=== PATIENT | female | born 2000 | race Caucasian/White ===

== ENCOUNTER 2018-09-06 20:21 | Emergency (ER) | payer BC, SELFPAY ==
[2018-09-06 20:22] VITALS: BP 123/73; PULSE 88; RESP 16; TEMP 36.4; O2SAT 96; BMI 26.1
--- NOTE | 2018-09-06 21:00 | RAD_ITS ---
STUDY: X-RAY CHEST REASON FOR EXAM: Female, 17 years old. Chest pain. Headache. TECHNIQUE: Single AP portable view of the chest. COMPARISON: None. FINDINGS: The lungs are clear and expanded. There is no demonstrated pleural abnormality. Normal size heart. Normal mediastinum and patti. Normal visualized pulmonary arteries. Normal visualized aortic arch and descending thoracic aorta. Normal visualized thoracic spine. Normal visualized ribs, clavicles, and shoulders. There is no demonstrated abnormality of the visualized soft tissue structures of the upper abdomen. RAD/Chest 1 View (Portable) IMPRESSION: Normal x-ray examination of the chest. Electronically Signed: Marek Messer DO at 21:49 EST Tel [phone], Service support ,
--- NOTE | 2018-09-06 22:16 | EKG12_ITS ---
Test Reason : CP Blood Pressure : / mmHG Vent. Rate : 070 BPM Atrial Rate : 070 BPM P-R Int : 128 ms QRS Dur : 074 ms QT Int : 390 ms P-R-T Axes : 065 068 046 degrees QTc Int : 421 ms Normal sinus rhythm Normal ECG Confirmed by SHIKHA AWAN, CHANDRA ([id number]), editor magazine FARZANA FIGUEROA ([id number]) on 09/08/2018 9:49:56 AM Referred By: DR DOTY Confirmed By:CHANDRA TRIVEDI MD
[2018-09-06 22:31] VITALS: O2SAT 99
[2018-09-06] MEDS: Ketorolac 30 MG/ML Syringe IV (22:32)
[2018-09-06] MEDS: Ondansetron 4 MG/2 ML Vial IV (22:32)
[2018-09-06] MEDS: 0.9% Normal Saline 1,000 ML 1000 ML IV (22:32)
[2018-09-06 22:34] LABS: Absolute Lymphocyte Count 2.02 X10^3/ul (0.83-4.51); Absolute Neutrophil Count 6.6 X10^3/uL (2.0-7.7); Basophil# 0.01 X10^3/uL; Basophil% 0.1 % (0-1); Eosinophil# 0.05 X10^3/uL; Eosinophils% 0.5 % (0-5); Hematocrit 37.4 % (37-47); Hemoglobin 12.8 g/dl (12.0-15.0); Lymphocyte # 2.02 X10^3/ul (4.0); Lymphocyte % 21.5 % (19-41); Mean Corp Hgb Conc 34.2 g/gl (32-36); Mean Corpuscular Hgb 31.1 pg (27.0-32.0); Mean Platelet Vol. 9.7 fl (6.2-12.0); Monocyte# 0.69 X10^3/uL; Monocyte% 7.3 % (0-10); Neutrophil # 6.59 X10^3/uL (2.7-7.7); Neutrophil % 70.3 % (47-70); Platelet Count 278 K/mm3 (150-450); RBC Distribution Width CV 11.8 % (11.6-14.6); RBC Distribution Width SD 38.4 fl (35.1-43.9); Red Blood Count 4.11 M/mm3 (4.2-5.4); White Blood Count 9.4 K/mm3 (4.4-11.0)
[2018-09-06 22:36] LABS: POSITIVE COUNT NO; POSITIVE DIFFERENTIAL NO; POSITIVE MORPHOLOGY NO
[2018-09-06 22:40] LABS: Anion Gap 6 (5-15); BUN 19 mg/dL (7-18); BUN/Creat Ratio 22.9 RATIO (10-20); Chloride 106 mmol/L (98-107); Creatinine, Serum 0.83 mg/dL (0.55-1.02); EST Glomerular Filtration Rate 93 mL/min (>60); Est Glom Filt Rate - Afr Amer 113 mL/min (>60); Estimated Creatinine Clearance 90.18 ml/min; Glucose 91 mg/dL (74-106); Potassium 3.6 mmol/L (3.5-5.1); Sodium Level 138 mmol/L (136-145)
[2018-09-06 23:05] LABS: Pregnancy, Serum, hCG Quali. NEGATIVE Negative (0-9 Nonpreg)
[2018-09-06 23:10] LABS: D-Dimer Quantitative (DVT/PE) 0.32 FEU/ug/m (0.27-0.49)
--- NOTE | 2018-09-06 23:20 | ED.VISSUMM ---
- ER Visit Summary Date of Service: 09/06/18 Chief Complaint: Chest pain History of Present Illness: The patient is a [address] Castillo. She reports she has left-sided chest pain that began at 10:00 this morning while at rest. It is a continuous sharp pain. Stented at worst and 7-10 currently. Is worsened by breathing and relieved by nothing. She reports she is mildly short of breath. She denies any nausea, vomiting, or diaphoresis. She is never had anything like this before. No personal or family history of DVT. No recent travel. No ankle swelling or calf pain. She does have a Norplant. Physical Examination: Vitals: Stable. Afebrile. General: Well-nourished and well-developed. Head: Normocephalic atraumatic. Neck: Supple, no lymphadenopathy. No JVD. Nontender. Cardiovascular: Regular rate and rhythm. No murmurs. Respiratory: No respiratory distress. Clear to auscultation bilaterally. Mild tenderness palpation of the left side of her chest. This does not reproduce her pain. Abdominal: Soft, nontender, nondistended, normal bowel sounds. No guarding, rebound, or peritoneal signs. Back: Nontender. Extremities: Nontender, no edema. Skin: Normal color, no rash. Neurologic: Alert and oriented ?3. Cranial nerves II through XII are intact. Normal strength and sensation. Psych: Normal affect. Test Results: EKG is sinus at [address] changes. That there is no old EKG for comparison. D-dimer is negative. test is negative. Chem-7 is more for BUN 19. CBC is normal. Chest x-ray is normal. Emergency Department Course and Treatment: Patient treated Toradol IV. She is resting comfortably Treatment Plan: Patient be discharged on naproxen. Instructed to follow-up her primary care physician in 1 week if not improving. Return to the emergency department for any worsening symptoms. Disposition: To home in improved and stable condition. Impression: 1. Atypical chest pain. 2. BRUNO score of 0. This note was generated with Resonant Vibesation software. It may contain incorrect words, spelling, and punctuation that were not noted in review of the chart prior to signing ED Disposition - Plan for ED Patient: Disposition: Home or Assisted Living Chief Complaint: Chest Pain Instructions: ED Chest Pain Atypical Unkn Cause Prescriptions: Naproxen [Naprosyn] 500 mg PO BID #14 tablet Referrals: Janine Castillo PA-C [ALLIED HEALTH PROFESSIONAL] - 1 Week if not improving
[2018-09-06 23:33] VITALS: BP 109/74; PULSE 70; RESP 14; O2SAT 98
--- OUTSIDE RECORDS SUMMARY | 2018-10-23 22:57 | XMS RPT_ITS ---
:2000 Author Organization [facility] Care Team Providers Name Role Phone LEONOR ALDRICH Admitting Unavailable LEONOR ALDRICH Attending Unavailable LEONOR ALDRICH Primary Care Unavailable POMERENE, FAMILY CARE Consulting Unavailable POMERENE, FAMILY CARE Referring Unavailable PROVIDER, UNKNOWN Consulting Unavailable Austin Dominguez Attending Unavailable Primay Care Physicia, No Primary Care Unavailable PROBLEMS PROBLEMS No Problem Records FoundPROCEDURES PROCEDURES No Procedure Records FoundRESULTS RESULTS 12 LEAD ELECTROCARDIOGRAM Observed: 09/08/2018 Status: F Source: [place] 9:50 AM [facility] REPOSITORY [facility] Cardiovascular Services [address] [place] [address] 12 Lead EKG 09/06/182031 MR#: [id number] Acct: [id number] Name: MERCED ASHFORD Rep #: [id number] : 2000 17 From: Faisal Trivedi MD Attending Dr: Status: DEP ER Ordering Dr: Austin Dominguez MD Date: 09/06/18 Location: ED Sex: F C Admitted: Test Reason : CP Blood Pressure : / mmHG Vent. Rate : 070 BPM Atrial Rate : 070 BPM P-R Int : 128 ms QRS Dur : 074 ms QT Int : 390 ms P-R-T Axes : 065 068 046 degrees QTc Int : 421 ms Normal sinus rhythm Normal ECG Confirmed by FAISAL TRIVEDI MD ([id number]), video effects editor FARZANA FIGUEROA ([id number]) on 09/08/2018 9:49:56 AM Referred By: DR DOMINGUEZ Confirmed By:FAISAL TRIVEDI MD 09/08/18 0950 Date Faisal Trivedi MD CC: No Primary Care Physician; Austin Dominguez MD Signed EMERGENCY DEPARTMENT Observed: 09/07/2018 Status: F Source: [place] SUMMARY 1:04 AM [facility] REPOSITORY [facility] Medical Records Department [address] [place] [address] Emergency Department Summary 09/06/18 2320 MR#: [id number] Acct: [id number] Name: MERCED ASHFORD Rep #: [id number] : 2000 17 From: Austin Dominguez MD PCP: Care Physician, No Primary Status: DEP ER - ER Visit Summary Date of Service: 09/06/18 Chief Complaint: Chest pain History of Present Illness: The patient is a [address] Castillo. She reports she has left-sided chest pain that began at 10:00 this morning while at rest. It is a continuous sharp pain. Stented at worst and 7-10 currently. Is worsened by breathing and relieved by nothing. She reports she is mildly short of breath. She denies any nausea, vomiting, or diaphoresis. She is never had anything like this before. No personal or family history of DVT. No recent travel. No ankle swelling or calf pain. She does have a Norplant. Physical Examination: Vitals: Stable. Afebrile. General: Well-nourished and well-developed. Head: Normocephalic atraumatic. Neck: Supple, no lymphadenopathy. No JVD. Nontender. Cardiovascular: Regular rate and rhythm. No murmurs. Respiratory: No respiratory distress. Clear to auscultation bilaterally. Mild tenderness palpation of the left side of her chest. This does not reproduce her pain. Abdominal: Soft, nontender, nondistended, normal bowel sounds. No guarding, rebound, or peritoneal signs. Back: Nontender. Extremities: Nontender, no edema. Skin: Normal color, no rash. Neurologic: Alert and oriented 3. Cranial nerves II through XII are intact. Normal strength and sensation. Psych: Normal affect. Test Results: EKG is sinus at [address] changes. That there is no old EKG for comparison. D-dimer is negative. test is negative. Chem-7 is more for BUN 19. CBC is normal. Chest x-ray is normal. Emergency Department Course and Treatment: Patient treated Toradol IV. She is resting comfortably Treatment Plan: Patient be discharged on naproxen. Instructed to follow-up her primary care physician in 1 week if not improving. Return to the emergency department for any worsening symptoms. Disposition: To home in improved and stable condition. Impression: 1. Atypical chest pain. 2. BRUNO score of 0. This note was generated with SupportBee dictation software. It may contain incorrect words, spelling, and punctuation that were not noted in review of the chart prior to signing ED Disposition - Plan for ED Patient: Disposition: Home or Assisted Living Chief Complaint: Chest Pain Instructions: ED Chest Pain Atypical Unkn Cause Prescriptions: Naproxen [Naprosyn] 500 mg PO BID #14 tablet Referrals: Janine Castillo PA-C [ALLIED HEALTH PROFESSIONAL] - 1 Week if not improving What to do if you have Problems For any increased pain, shortness of breath, bleeding, nausea or vomiting, chest pain, or any unexpected problems, contact your Primary Care Provider. Call [facility] ([phone]) or report to the closest Emergency Room. Call 911 if necessary. 09/07/18 0104 <Electronically signed by Austin Dominguez MD> Date Austin Dominguez MD Cosigner Signature (If Indicated): Date CC: No Primary Care Physician D-DIMER QUANTITATIVE Collected: 09/06/2018 Status: F Source: [place] (DVT/PE) 10:50 PM [facility] REPOSITORY TYPE CODE TESTS RESULT OUT OF RANGE REFERENCE UNITS LAB L300.8000 0.27-0.49 FEU/ug/m Normal D-DIMER 0.32 QUANT Result Comment: NORMAL D-Dimer level (<0.50) indicates no DVT or PE. Performed By: #### L300.8000 #### [facility] [address] [place], [place], [address] CBC W/DIFF, AUTOMATED Collected: 09/06/2018 Status: F Source: [place] 10:24 PM [facility] REPOSITORY TYPE CODE TESTS RESULT OUT OF RANGE REFERENCE UNITS LAB L100.1000 4.4-11.0 K/mm3 Normal WBC 9.4 LAB L100.1200 4.2-5.4 M/mm3 Low RBC 4.11 LAB L100.1300 12.0-15.0 g/dl Normal HGB 12.8 LAB L100.1400 37-47 % Normal HCT 37.4 LAB L100.1500 81-99 fL Normal MCV 91.0 LAB L100.1600 27.0-32.0 pg Normal MCH 31.1 LAB L100.1700 32-36 g/gl Normal MCHC 34.2 LAB L100.1810 11.6-14.6 % Normal RDW CV 11.8 LAB L100.1820 35.1-43.9 fl Normal RDW SD 38.4 LAB L100.1900 150-450 K/mm3 Normal PLT 278 LAB L100.2000 6.2-12.0 fl Normal MPV 9.7 LAB L100.2100 47-70 % High NEUT% 70.3 LAB L100.2200 19-41 % Normal LY% 21.5 LAB L100.2300 0-10 % Normal MONO% 7.3 LAB L100.2400 0-5 % Normal EO% 0.5 LAB L100.2500 0-1 % Normal BASO% 0.1 LAB L100.2550 0.0-0.9 % Normal IM GRAN % 0.300 Result Comment: IG% - Immature Granulocytes (promyelocytes, myelocytes and metamyelocytes) > 1% indicates that a LEFT SHIFT is Present. LAB L100.2620 2.0-7.7 X10 3/uL Normal Absolute Neut 6.6 LAB L100.2720 0.83-4.51 X10 3/ul Normal Absolute Lymph 2.02 Performed By: #### L100.0100 #### [facility] [address] [place], [place], [address] BASIC METABOLIC Collected: 09/06/2018 Status: F Source: [place] PROFILE (BMP) 10:24 PM [facility] REPOSITORY TYPE CODE TESTS RESULT OUT OF RANGE REFERENCE UNITS LAB L501.0100 74-106 mg/dL Normal GLU 91 Result Comment: Please note revised GLUCOSE reference range effective 2017. LAB L501.1000 7-18 mg/dL High BUN 19 LAB L501.1100 0.55-1.02 mg/dL Normal CREAT,SERUM 0.83 Result Comment: The validity of the calculated GFR AND GFRAA in patients over 70 years has not been determined. Clinical correlation is essential. LAB L501.1110 >60 mL/min Normal EST GFR 93 Result Comment: Non- GFR Calc LAB L501.1115 >60 mL/min Normal EST GFR - AA 113 Result Comment: GFR Calc LAB L501.1255 ml/min Normal Estimated CRCL 90.18 LAB L501.1300 10-20 RATIO High BUN/CRE 22.9 LAB L501.2200 8.5-10 mg/dL Normal .1 CA 9.0 LAB L501.5300 136-14 mmol/L Normal 5 NA 138 LAB L501.5600 3.5-5. mmol/L Normal 1 K 3.6 Result Comment: Slight Hemolysis, Result may be falsely increased. LAB L501.5900 98-107 mmol/L Normal CL 106 LAB L501.6100 21.0-32.0 mmol/L Normal CO2 26.0 LAB L501.6200 5-15 Normal 6 GAP Performed By: #### L500.2500 #### [facility] [address] [facility] [place], [address] ,SERUM,HCG QUALI. Collected: Status: F Source: [place] 09/06/2018 10:24 PM [facility] REPOSITORY TYPE CODE TESTS RESULT OUT OF REFERENCE UNITS RANGE LAB L700.6700 =>Qualitative mIU/mL Normal HCG Qual < 1 triggr LAB L700.7000 0-9 Nonpreg Negative Normal HCGSQUAL NEGATIVE Performed By: #### L700.6800 #### [facility] [address] [place], [address] CHEST 1 VIEW Observed: 09/06/2018 Status: F Source: [place] (PORTABLE) 8:47 PM [facility] REPOSITORY [facility] Imaging Services [address] [place] [address] Chest 1 View (Portable) MR#: [id number] Acct: [id number] Name: MERCED ASHFORD Rep #: [id number] : 2000 F 17 From: Marek Messer DO PCP: Care Physician, No Primary Status: PRE ER Study: Chest 1 View (Portable) Date of Exam: 09/06/18 Exam# [id number] Ordering Dr: Provider,Ed P. STUDY: X-RAY CHEST REASON FOR EXAM: Female, 17 years old. Chest pain. Headache. TECHNIQUE: Single AP portable view of the chest. COMPARISON: None. FINDINGS: The lungs are clear and expanded. There is no demonstrated pleural abnormality. Normal size heart. Normal mediastinum and patti. Normal visualized pulmonary arteries. Normal visualized aortic arch and descending thoracic aorta. Normal visualized thoracic spine. Normal visualized ribs, clavicles, and shoulders. There is no demonstrated abnormality of the visualized soft tissue structures of the upper abdomen. RAD/Chest 1 View (Portable) IMPRESSION: Normal x-ray examination of the chest. Electronically Signed: Marek Messer DO at 21:49 EST Tel [phone], Service support , CC: No Primary Care Physician; ED PHYSICIAN PROVIDER Employee Health Nurse: Signed CMP WITH EGFR Collected: 03/29/2018 Status: F Source: [place] 2:00 AM [facility] REPOSITORY TYPE CODE TESTS RESULT OUT OF RANGE REFERENCE UNITS LAB CMP with eGFR(LOINC) CMP with eGFR Result Comment: COMPREHENSIVE METABOLIC PANEL LAB SODIUM(LOINC) 136 - 145 mmol/l SODIUM 140 LAB POTASSIUM(LOINC) 3.5 - 5.1 mmol/L POTASSIUM 3.5 LAB CHLORIDE(LOINC) 98 - 107 mmol/L CHLORIDE 104 LAB CO2(LOINC) 21.0 - mmol/L 31.0 CO2 25.5 LAB GLUCOSE(LOINC) 74 - 106 mg/dl GLUCOSE High 112 LAB BUN(LOINC) 6 - 20 mg/dl BUN 14 LAB CREATININE(LOINC) 0.6 - 1.2 mg/dl CREATININE 0.8 LAB AST/SGOT(LOINC) 13 - 39 U/L AST/SGOT 16 LAB ALK PHOS(LOINC) 38 - 126 U/L ALK PHOS 57 LAB CALCIUM(LOINC) 8.6 - mg/dl 10.2 CALCIUM 9.9 LAB TOTAL 6.4 - 8.3 g/dl PROTEIN(LOINC) TOTAL PROTEIN 7.6 LAB ALBUMIN(LOINC) 3.4 - 4.8 g/dL ALBUMIN High 5.0 LAB GLOBULIN(LOINC) 1.5 - 3.8 G/DL GLOBULIN 2.6 LAB A/G RATIO(LOINC) 0.9 - 1.6 A/G High RATIO 1.9 LAB TOTAL BILI(LOINC) 0.0 - 1.5 mg/dl TOTAL BILI 0.4 LAB B/C RATIO(LOINC) 0 - 30 ratio B/C RATIO 18 LAB ALT/SGPT(LOINC) 8 - 35 U/L ALT/SGPT 8 LAB ANION GAP(LOINC) 10 - 20 mmol/L ANION GAP 14 LAB AGE(LOINC) years AGE 17 LAB eGFR(LOINC) 60 - 999 ML/MINUTE eGFR >60 LAB eGFR(AA)(LOINC) 60 - 999 ML/MINUTE eGFR(AA) >60 Result Comment: ACCORDING TO THE NATIONAL KIDNEY DISEASE EDUCATION PROGRAM(NKDE), A NORMAL eGFR IS A VALUE GREATER THAN OR EQUAL TO 60 ML/MIN/1.73 SQ METERS. CHRONIC KIDNEY DISEASE: <60mL/MIN/1.73 SQ METERS KIDNEY FAILURE: <15mL/MIN/1.73 SQ METERS THIS TEST SHOULD ONLY BE USED FOR PATIENTS 18 YEARS OF AGE AND OLDER. Performed By: #### [id number] #### [address] [address] LIPASE Collected: 03/29/2018 Status: F Source: [facility] 2:00 [facility] REPOSITORY TYPE CODE TESTS RESULT OUT OF REFERENCE UNITS RANGE LAB LIPASE(LOIN 18.0 - 51.0 U/L C) Low LIPASE 12.0 Performed By: #### [id number] #### [facility],[address] [place] [address] CBC Collected: 03/29/2018 Status: F Source: [facility] 2:00 [facility] REPOSITORY TYPE CODE TESTS RESULT OUT OF RANGE REFERENCE UNITS LAB CBC(LOINC) CBC Result Comment: CBC-COMPLETE BLOOD COUNT LAB WBC(LOINC) 4.5 - 10.8 x 10EE3/UL WBC High 11.9 LAB RBC(LOINC) 4.10 - x 10EE6/UL 5.30 RBC 4.20 LAB HEMOGLOBIN(LOINC 12.0 - g/dl ) 16.0 HEMOGLOBIN 13.2 LAB HEMATOCRIT(LOINC 34.0 - % ) 46.0 HEMATOCRIT 37.6 LAB MCV(LOINC) 80 - 99 fl MCV 89 LAB MCH(LOINC) 27 - 33 pg MCH 31 LAB MCHC(LOINC) 32 - 36 X10 3 MCHC 35 LAB RDW/CV(LOINC) 12.0 - % 15.6 RDW/CV 12.2 LAB PLATELET(LOINC) 150 - 450 x10EE3/UL PLATELET 276 LAB MPV(LOINC) 6.6 - 10.5 fl MPV 8.1 Result Comment: AUTOMATED DIFFERENTIAL LAB NEUT %(LOINC) 46.0 - 76.0 % NEUT % High 77.4 LAB LYMPH %(LOINC) 20.0 - 45.0 % Low LYMPH % 15.9 LAB MONOS %(LOINC) 0.0 - 10.0 % MONOS % 6.1 LAB EO %(LOINC) 0.0 - 7.0 % EO % 0.5 LAB BASO %(LOINC) 0.0 - 2.0 % BASO % 0.1 LAB Lymph #(LOINC) 0.80 - 2.80 x10EE3/U L Lymph # 1.90 LAB Neut #(LOINC) 1.50 - 7.10 x10EE3/U L Neut # High 9.20 LAB [place] #(LOINC) 0.20 - 1.00 x10EE3/U L [place] # 0.70 LAB EO #(LOINC) 0.00 - 0.50 x10EE3/U L EO # 0.10 LAB Baso #(LOINC) 0.00 - 0.10 x10EE3/U L Baso # 0.00 LAB MANUAL DIFF(LOINC) MANUAL DIFF N/A LAB MORPHOLOGY(LOINC ) MORPHOLOGY N/A Result Comment: {CD] Performed By: #### [id number] #### [facility],[address] [place] [address] ALLERGIES ALLERGIES DATE TYPE / CODE NAME / CODE REACTION SEVERITY SOURCE 09/06/2018 Drug No Known Unknown [place] Allergy/104256115(S [facility]/F[facility] [place] [address] Repository Miscellaneous No Known Drug Moderate [facility] Allergy/999414278(S Allergies (Severity [facility] NOMED CT) Modifier) [facility] (Qualifier Repository Value) ENCOUNTERS ENCOUNTERS ADMIT/DISCHARGE ACCOUNT ADMITTING ENCOUNTER LOCATION SOURCE NUMBER CLASS 09/06/2018/ [id number] Emergency [address] ing:ED Repository 03/29/2018/ [id number] [facility], Emergency [address] [place] [address] oom: ERBed: [facility] [place] Repository PAYERS PAYERS ENCOUNTER GUARANTOR PAYER SUBSCRIBER SOURCE 09/06/2018 MERCED Nova [id number] S Insurance:ANTHEMPolicy SHOEMAKERDOB: [facility] Number: [id number] [id number] [address]Bfd: ve Date:[id number] [facility] [id number], [place] () [address]IM: 09/06/2018 Secondary NOT GIVENUNK [place] Insurance:SELF PAY [facility] Number: Effective Repository Date:2018-09-06 03/29/2018 MERCED Kapoor Pomerene KDKDOB: Insurance:ANTHEM DRAGAN [facility] HEALTH[facility]AREEMAKERDOB: [facility] S [employer] [id number] [facility] [place] Number: [place] [id number] Id [id number]: ve Date:Plan Name:B2 ()
== END 2018-09-06 23:37 | disposition home or self-care (01) ==
PROVIDERS: Emergency Provider Emergency Medicine
DX: R07.89 Other chest pain (principal); R06.09 Other forms of dyspnea; R51 Headache
CPT/HCPCS: 71045; 80048; 84703; 85025; 85379; 93005; 96361; 96374; 96375; 99285; J7030; A4216; J2405

== ENCOUNTER 2021-10-20 07:42 | Outpatient (CLI) | payer BC, SELFPAY | END 2021-10-20 23:59 | disposition short-term general hospital (02) | LOC: MS3OUT 07:45 | PROVIDERS: Referring Provider Nurse Practitioner Adult Health; Visit Provider Nurse Practitioner Adult Health | DX: U07.1 COVID-19 (principal) | CPT/HCPCS: Q0245 ==

== ENCOUNTER 2021-12-15 09:35 | Inpatient (IN) | payer BC, MEDICAID, SELFPAY ==
[2021-12-15] VITALS (71 sets, daily range): BP systolic 96–109; BP diastolic 51–83; PULSE 63–95; RESP 15–16; TEMP 36.1–37; O2SAT 98–100; BMI 29.1
[2021-12-15] MEDS: Lactated Ringers 1,000 ML 999 ML IV (10:10)
[2021-12-15 10:24] LABS: Absolute Lymphocyte Count 1.26 X10^3/uL (0.83-4.51); Absolute Neutrophil Count 7.4 X10^3/uL (2.0-7.7); Basophil# 0.01 X10^3/uL; Basophil% 0.1 % (0-1); Eosinophil# 0.08 X10^3/uL; Eosinophils% 0.9 % (0-5); Hematocrit 30.3 % (37-47); Hemoglobin 10.6 g/dL (12.0-15.0); Lymphocyte # 1.26 X10^3/ul (0.83-4.51); Lymphocyte % 13.7 % (19-41); Mean Corpuscular Hgb 30.5 pg (27.0-32.0); Mean Corpuscular Volume 87.3 fL (81-99); Mean Platelet Vol. 9.8 fl (6.2-12.0); Monocyte# 0.41 X10^3/uL; Monocyte% 4.5 % (0-10); NRBC Flagged by Analyzer 0 % (0-5); Neutrophil # 7.42 X10^3/uL (2.7-7.7); Neutrophil % 80.5 % (47-70); Platelet Count 281 K/mm3 (150-450); RBC Distribution Width CV 13.2 % (11.6-14.6); RBC Distribution Width SD 41.8 fl (35.1-43.9); Red Blood Count 3.47 M/mm3 (4.2-5.4); White Blood Count 9.2 K/mm3 (4.4-11.0)
[2021-12-15] MEDS: Acetaminophen 500 MG Tablet 1000 MG PO ×2 (10:46→16:30)
[2021-12-15] MEDS: Lactated Ringers 1,000 ML 150 ML IV (10:58)
[2021-12-15] MEDS: Sodium Citrate/Citric Acid 30 ML UDC PO (11:35)
--- NOTE | 2021-12-15 11:50 | PCM.HP.OB ---
HPI - General General Date of Admission: 12/15/21 HPI Narrative MERCED ASHFORD, is a 21 F who presents for repeat . Maternal Data Information Final ETHAN: 12/15/21 Gestational age: 40 weeks [facility] Medical History Anxiety Depression History of prior with IUGR Home Medications vit,[id number] [Prenatabs FA] 1 tab PO DAILY 12/15/21 [History Last Taken 12/13/21 10:00] sertraline [Zoloft] 50 mg PO DAILY 12/15/21 [History Last Taken 12/12/21 20:00] Allergy/AdvReac Type Severity Reaction Status Date / Time No Known Allergies Allergy Verified 10/19/21 13:22 Surgical History Previous section Social History Smoking Status: Never smoker History Elective abortions Hx Para 1 Spontaneous abortions Hx # Term Pregnancies Ectopic pregnancies Hx # Pregnancies Multiple births # of living children Vital Signs Vital Signs Vital Signs: 12/15/21 10:10 12/15/21 10:12 12/15/21 10:25 Temperature 98.2 F 98.6 F Temperature Source Temporal Pulse Rate 84 85 84 Blood Pressure 109/73 109/73 BP Systolic 109 109 BP Diastolic 73 73 Pulse Ox 98 98 Weight Weight: 164 lb 7.437 oz Body Mass Index (BMI) 29.1 Physical Exam Const alert, oriented x3 and no apparent distress Chest inspection of chest normal Resp normal respiratory effort GI soft to palpation, non-tender and non-distended Inspection: gravid Extremity no calf tenderness Labs Labs Labs: Blood Type O POSITIVE Antibody Screen NEGATIVE Hct 30.3 % (37-47) L Hgb 10.6 g/dL (12.0-15.0) L Assessment & Plan (1) Previous delivery affecting : COMMENT: @ 40 weeks PLAN: Admit to L&D Proceed with repeat - informed consent signed COVID negative Routine post-op care
[2021-12-15] MEDS: Cefazolin 2 GM in 0.9% Normal Saline 100 ML IV (11:52)
--- NOTE | 2021-12-15 13:02 | EX.PCM.OBRPT ---
Maternal Data Information Final ETHAN: 12/15/21 Gestational age: 40 weeks Details Operative Information Date of Procedure: 12/15/21 Pre-Operative Diagnosis: (1) Prior section Post-Operative Diagnosis: Same Indications for : Repeat Elective Indications Narrative: The patient was taken to the operating room where spinal anesthesia was placed & found to be adequate. She was prepped and draped in the dorsal supine position with a leftward tilt. A Pfannenstiel skin incision was made approximately 2 cm above the symphysis pubis and carried through to the underlying fascia with the scalpel. The fascia was incised incised in the midline and extended laterally with the Rollins scissors. The rectus muscles were in the midline and the peritoneum was entered carefully and bluntly. The peritoneal incision was stretched and the bladder blade was inserted. Vesicouterine peritoneum was tented up, incised & then bladder flap created gently. The uterine incision was made in a low transverse fashion with the scalpel and extended superiorly and inferiorly with blunt dissection. The infant's head was brought to the incision in the flexed position and delivered without difficulty. The head was gently guided to allow delivery of the anterior and posterior shoulders. The body then delivered with fundal pressure in the standard fashion. The 3VC cord was clamped and cut in delayed fashion. The infant was handed off to the waiting pediatrics physician. The placenta was delivered with fundal massage and gentle traction in the standard fashion. The uterus was exteriorized and cleared of clots and debris. The uterine incision was closed with #1 Vicryl suture in a running locked fashion. Monocryl suture was used in an imbricating fashion. The incision was examined and was found to be hemostatic. The uterus was returned to the abdominal cavity. After irrigating Jon was placed over the uterine incision as some areas were denuded (but hemostatic). The peritoneum was closed with vicryl suture in running fashion The rectus muscle was examined and any bleeding was Bovie cauterized. The fascia was closed with PDS suture in a running standard fashion. The subcutaneous tissue was examining and any bleeding was Bovie cauterized. The subcutaneous tissue was reapproximated with interrupted sutures. The skin was closed in a subcuticular fashion by the OUTSIDE SALES ACCOUNT MANAGER while I was present in the labor & delivery unit. The remainder of the procedure was performed by me with assistance. All sponge, lap, and needle counts were correct. The patient was taken to her room for recovery in a stable condition. Classification: Scheduled Procedure Type: low transverse musical string maker #1: Jesus Castillo Type of Anesthesia: Spinal Antibiotic Given: Ancef 2 grams IV x1 Drain: Higgins to straight drain Estimated Blood Loss: 900ml Fluids Replaced: 1100ml Procedure Start Time: 12:16 Procedure Stop Time: 13:01 Findings Description of Procedure: Normal maternal uterus and adnexa Presentation: Positive for Vertex Amniotic Membrane Rupture Type: Artificial Amniotic Fluid Description: Clear Placental Delivery Description: Expressed Placenta Disposition: [facility] Specimen(s) Sent to Pathology: None Cord Vessel Description: 3 Vessels Cord Entanglement: None A Gender: Female (Jerri) (1 minute): 9 (5 minute): 9 Delayed Cord Clamping: Yes Complications Complications: None
[2021-12-15] MEDS: Ketorolac 30 MG/ML Syringe IV ×2 (13:28→19:42)
[2021-12-15] MEDS: Oxytocin 30 units/NS 500 ml 30 UNITS/500 ML IV.SOLN 167 UNITS IV (13:28)
[2021-12-15] MEDS: DiphenhydrAMINE 25 MG Capsule PO (15:18)
[2021-12-15] MEDS: Lactated Ringers 1,000 ML 100 ML IV (16:23)
[2021-12-15] MEDS: Nalbuphine 10 MG/ML Ampul 5 MG IV (16:30)
[2021-12-15] MEDS: Ondansetron 4 MG/2 ML Vial IV (18:57)
[2021-12-16] VITALS (11 sets, daily range): BP systolic 103–108; BP diastolic 56–67; PULSE 75–91; RESP 16; TEMP 35.8–36.7; O2SAT 97–98
[2021-12-16] MEDS: Acetaminophen 500 MG Tablet 1000 MG PO ×3 (00:02→12:52)
[2021-12-16] MEDS: Enoxaparin 40 MG/0.4 ML Syringe SC (00:02)
[2021-12-16] MEDS: Ketorolac 30 MG/ML Syringe IV ×2 (02:15→09:07)
[2021-12-16] MEDS: 0.9% Saline Lock 10 ML Syringe IV ×2 (02:17→09:08)
[2021-12-16 05:57] LABS: Hematocrit 27.3 % (37-47); Hemoglobin 9.2 g/dL (12.0-15.0); Mean Corp Hgb Conc 33.7 g/dL (32-36); Mean Corpuscular Hgb 31.2 pg (27.0-32.0); Mean Corpuscular Volume 92.5 fL (81-99); Mean Platelet Vol. 9.4 fl (6.2-12.0); Platelet Count 225 K/mm3 (150-450); RBC Distribution Width CV 13.2 % (11.6-14.6); RBC Distribution Width SD 44.6 fl (35.1-43.9); Red Blood Count 2.95 M/mm3 (4.2-5.4); White Blood Count 8.8 K/mm3 (4.4-11.0)
--- NOTE | 2021-12-16 08:36 | PCM.PROGNOTE ---
Subjective Subjective patient seen at bedside, doing well. Patient reports good pain control. lochia mild. breast feeding well. Objective Data Objective Data Vital Signs: Vital Signs Temp Pulse Resp BP Pulse Ox 97.2 F L 75 16 104/56 L 97 12/16/21 03:36 12/16/21 03:37 12/16/21 03:30 12/16/21 03:37 12/16/21 03:36 Oxygen Delivery Method Room Air Weight: 74.6 kg Body Mass Index (BMI) 29.1 Intake & Output: Intake and Output for Last 24 Hours 12/14/21 12/15/21 12/16/21 23:59 23:59 23:59 Intake Total 3562.37 / 3562.37 Output Total 1200 / 1200 750 / 750 Balance 2362.37 / 2362.37 -750 / -750 Lab / Micro Data Result Diagrams: 12/16/21 05:48 Labs: Laboratory Results - last 24 hr 12/15/21 10:05: WBC 9.2, RBC 3.47 L, Hgb 10.6 L, Hct 30.3 L, MCV 87.3, MCH 30.5, MCHC 35.0, RDW Std Deviation 41.8, RDW Coeff of Connie 13.2, Plt Count 281, MPV 9.8, Immature Gran % (Auto) 0.300, Neut % (Auto) 80.5 H, Lymph % (Auto) 13.7 L, [place] % (Auto) 4.5, Eos % (Auto) 0.9, Baso % (Auto) 0.1, Absolute Neuts (auto) 7.4, Absolute Lymphs (auto) 1.26, Nucleated RBC % 0 12/15/21 10:05: Blood Type O POSITIVE, Antibody Screen NEGATIVE 12/16/21 05:48: WBC 8.8, RBC 2.95 L, Hgb 9.2 L, Hct 27.3 L, MCV 92.5 D, MCH 31.2, MCHC 33.7, RDW Std Deviation 44.6 H, RDW Coeff of Connie 13.2, Plt Count 225, MPV 9.4 Micro: Microbiology 12/15/21 10:10 Nasal Secretion SARS-CoV-2 Antigen (Rapid) - Final Physical Exam Const alert and oriented x3 General Appearance: cooperative HEENT normocephalic Neck General: normal visual inspection GI soft to palpation and non-distended GI Narrative: dressing dry and intact. Fundus firm Extremity normal to inspection and no calf tenderness Skin no rashes or lesions noted Neuro oriented x3 and CN's II-XII intact bilaterally Psych mental status grossly normal Assessment & Plan Assessment/Plan (1) Previous delivery affecting : PLAN: POD#1 , Doing well Routine care pain mgmt monitor VS ambulation dc home per pateint request
--- NOTE | 2021-12-16 08:37 | PCM.DC ---
Discharge Instructions Diet Discharge Diet: No restrictions Activity May resume sexual activity in: 6-8 weeks Lifting Restrictions: 25 Dressing / Incision Call your doctor if your incision/area has: Continuous Slow Oozing, Sudden Increased Bleeding, Increased Pain/ Swelling, Increased Redness, Foul Smelling Discharge and Swelling at the incision site Call your doctor if you observe: Fever of 101 or Higher, Inability to urinate, Using more than 1 pad per hour and Uncontrolled pain Additional Dressing/Incision Instructions:: remove dressing at 7 days post op- if it becomes saturated prior to that time you may remove it. Let soap and water run over incision sites and dab dry. keep incision clean and dry. Follow Up Care Please Follow Up With: Cherie Scott MD When: 1-2 weeks post of incision check and again at 6 weeks post . [phone] Test Results: Test results from this visit will be discussed in further detail at your follow-up appointment, if applicable. Discharge Plan Admission Admit Date/Time: 12/15/21 09:35 Attending Provider: Aiden Acevedo Primary Care Provider: Care PhysicianJanis Primary Discharge Orders/Prescriptions Prescriptions: New acetaminophen 500 mg Tablet 1,000 mg PO Q6H Qty: 0 RF: 0 ibuprofen 600 mg Tablet 600 mg PO Q6H Qty: 0 RF: 0 oxycodone 5 mg Tablet 5 - 10 mg PO Q6H PRN PRN (Reason: Pain Score 4-10) 5 Days Qty: 10 RF: 0 simethicone [Mi-Acid Gas Relief(simethicon)] 80 mg Tablet,Chewable 80 mg PO PCHS PRN (Reason: Indigestion/stomach pain) Qty: 0 RF: 0 Continued sertraline [Zoloft] 50 mg Tablet 50 mg PO DAILY RF: 0 Prenatabs FA 29-1 mg Tablet 1 tab PO DAILY RF: 0 Referrals / Follow Up: Care PhysicianJanis Primary [Primary Care Provider] - Disposition Disposition (needs filled in before D/C Order can be placed): Home, Self Care
[2021-12-16] MEDS: Senna/Docusate Sodium 1 Tablet PO (09:07)
[2021-12-16] MEDS: Ibuprofen 600 MG Tablet PO (12:52)
--- NOTE | 2021-12-16 14:10 | CASEMGMT ---
Social Work Assessment Labor and Delivery Unit Date of Referral: 12.16.2021 Time of Referral: 08 Referred By: Verbal notification by nursing Date of Intervention: 12.16.2021 Time of Intervention: 1410 Reason for Referral: Maternal history of depression and anxiety. History obtained from: Medical records, mother of baby (MOB) Mary Echevarria, and father of baby (FOB) Ezekiel Roa. Household composition: MOB, FOB, and MOB's older daughter. Patient's parent/guardian status: ALEJANDRINA is a 23 year old single female, involved with the FOB for the last 1 year. MOB denies any safety concerns or history of abuse in this relationship. baby is the first child for MOB and FOB together. MOB has an older child from prior relationship. Minor children: Gio, born 01.25.2020 and baby girl Jerri Roa. Gio's father does have visitation. Medical History: ALEJANDRINA is G2, P1 to 2 after delivering baby. care adequate. weight 7 pounds 2 ounces. Agpars 9 and 9. Educational Status: High school. No issues with reading, writing or learning. 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 FOB is also employed. No reported concerns with finances. Supplies: MOB reports to have all necessary baby supplies including, car seat. safe sleep spaced. Childcare/Caregiver(s): MOB and FOB, with MOB having a hat blocking machine operator secured for the children. Transportation: No concerns. Both parents drive. Programs/Agencies Involved: ALEJANDRINA has medicaid through [employer]. MOB and FOB agree to [facility] referral. Children Services/Legal Issues: Denies current or past involvement. Behavioral Health Issues: Mental Health History: Maternal history of depression and anxiety diagnosed at the age of 12. History of counseling. History of PPD, but MOB reports was minimal and more like the baby blues. ALEJANDRINA does have history of suicidal ideation 3 years ago with subsequent inpatient treatment. No reports of current thoughts. MOB started on Zoloft in and reports may talk with doctor about a different medication now that not . Family History: ALEJANDRINA's sister with history of depression. Substance Use History: Denies. Drug Screens: No screens noted in the record. Family/Social Stressors: None reported at this time. unexpected but accepted. MOB and FOB both reports was a happy surprise. Support Systems: MOB reports to have good support from FOB, and from MOB's parents who live close by. MOB reports to have a large family and all are helpful. FOB's family is helpful, but live an hour away. FOB plans to take a week off of work to help MOB at home with baby. Depression/Shaken Baby/Safe Sleeping: Safe sleeping and shaken baby reviewed. Reviewed depression and anxiety, importance of seeking out help and support, as well as that fathers are also at risk. ASSESSMENT: Met with MOB and FOB together. Spoke briefly with MOB alone and MOB denied any safety or abuse concerns with the FOB. MOB and FOB both engaged in conversation with high school social science teacher, pleasant and cooperative. MOB attended to baby, was appropriate and gentle. MOB reports to have all needed supplies to care for baby, and to have adequate support from family. MOB reports FOB is a support, as has anxiety and on medications. MOB reports would seek out addition support if PPD or PPA arises . MOB prescribed Zoloft but plans to talk with PCP about alternative medications. No voiced concerns by nursing about parent/child interactions or bonding. Provided MOB with list of [facility] resources and also mood and anxiety disorders packet, which does including local and online resources. [facility] referral to be made. PLAN: MOB and infant home. Resources provided for home going. No other services requested or indicated. -EDY Trivedi, MARY ANNE
== END 2021-12-16 14:15 | disposition home or self-care (01) | DRG 788 ==
PROVIDERS: Obstetrics & Gynecology; Admitting Provider Obstetrics & Gynecology; Visit Provider Obstetrics & Gynecology
PROC: 10D00Z1 Extraction of Products of Conception, Low, Open Approach (ICD-10-PCS; CPT 59514; principal; 2021-12-15 11:45)
DX: O34.219 Maternal care for unspecified type scar from previous cesarean delivery (principal); F32.A Depression, unspecified; F41.9 Anxiety disorder, unspecified; O99.344 Other mental disorders complicating childbirth; Z20.822 Contact with and (suspected) exposure to COVID-19; Z79.899 Other long term (current) drug therapy; Z37.0 Single live birth; Z3A.40 40 weeks gestation of pregnancy
CPT/HCPCS: 59050; 85025; 85027; 86850; 86900; 86901; 87426; 99218; J7120; A4216; G0378; J2405

== ENCOUNTER 2024-09-30 08:17 | Emergency (ER) | payer OTHER, SELFPAY ==
[2024-09-30] VITALS (8 sets, daily range): BP systolic 93–121; BP diastolic 64–89; PULSE 69–99; RESP 14–18; TEMP 36.7–37.1; O2SAT 97–100; BMI 22.1
--- NOTE | 2024-09-30 08:41 | EKG12_ITS ---
Test Reason : CP Blood Pressure : */* mmHG Vent. Rate : 81 BPM Atrial Rate : 81 BPM P-R Int : 144 ms QRS Dur : 68 ms QT Int : 378 ms P-R-T Axes : 76 75 61 degrees QTcB Int : 439 ms Normal sinus rhythm with sinus arrhythmia Normal ECG Confirmed by Abdoul Bautista ([id number]), photography editor ARCADIO MANZANO ([id number]) on 10/01/2024 9:54:06 AM Referred By: CG Confirmed By: Abdoul Bautista
--- NOTE | 2024-09-30 08:43 | EX.ED.DYSGE1 ---
HPI History of Present Illness Chief Complaint: Shortness of Breath Informant: patient Narrative Narrative: Patient is a 24-year-old female with history of prior cholecystectomy, anxiety and depression presenting with chest pain. Patient states she has been sick for the past 2 days or so. Started with vomiting and diarrhea 2 days ago and yesterday she had decreased appetite, congestion and cough. No reported fevers but states she intermittently still hot and cold. This morning after she woke up she noticed as some burning chest pain. She states it is in the center of her chest and radiates down to her epigastric region. She has associated shortness of breath and did have a couple episodes of vomiting. She denies any coughing today. She did take 600 mg of Advil for her symptoms. She denies any associated abdominal pain except for discomfort in her epigastric region. She denies any urinary symptoms. She denies any swelling of her legs or history of DVT/PE. She is not on any estrogen or hormonal medication. Denies any sick contacts initially but then states that her daughters had some mild cold symptoms. No other complaints or concerns reported at this time. Denies any history of any heart problems that she is aware of. [facility] Medical History History of prior with IUGR Anxiety Depression Home Medications ?Medication ?Instructions ?Recorded ?Last Taken ?Type alprazolam 0.25 mg tablet 0.25 mg PO TID PRN anxiety 07/25/24 Unknown History omeprazole 20 mg capsule,delayed 20 mg PO DAILY #30 CAPSULES 09/30/24 Unknown Rx release ondansetron 4 mg disintegrating 4 mg PO Q8H PRN PRN Nausea #10 tabs 09/30/24 Unknown Rx tablet Allergy/AdvReac Type Severity Reaction Status Date / Time No Known Allergies Allergy Verified 08/16/24 13:12 Surgical History S/P laparoscopic cholecystectomy Previous section Social History Smoking Status: Current every day smoker tobacco type: cigarettes alcohol intake: never ROS ROS ED Constitutional Constitutional ED: Reports chills; Denies fever(s) Eyes Eyes: Denies change in vision ENT ENT ED: Reports other Details: Mild nasal congestion ; Denies ear pain or sore throat Cardiovascular Cardiovascular: Reports chest pain Respiratory/Chest Respiratory/Chest: Reports dyspnea; Denies cough Gastrointestinal Gastrointestinal: Reports abdominal pain, nausea and vomiting; Denies constipation or diarrhea Genitourinary Genitourinary ED: Denies dysuria or urinary frequency Musculoskeletal Musculoskeletal: Denies arthralgias or myalgias Integumentary Denies other Neurologic Neurologic: Reports headache(s) and weakness Psychiatric Psychiatric: Reports anxiety EXAM Physical Exam Const Vital Signs: 09/30/24 08:18 09/30/24 08:31 09/30/24 08:31 Temperature 98.7 F 98.1 F Temperature Source Oral Oral Pulse Rate 99 72 Respiratory Rate 18 15 Respiratory Effort Short of Breath Respiratory Depth Normal Respiratory Pattern Normal Blood Pressure 121/86 H 119/89 H Blood Pressure Mean 97 99 Pulse Ox 99 100 Oxygen Delivery Method Room Air Room Air Room Air 09/30/24 09:17 09/30/24 10:00 09/30/24 11:00 Temperature Temperature Source Pulse Rate 72 87 75 Respiratory Rate 16 18 14 Respiratory Effort Respiratory Depth Respiratory Pattern Blood Pressure 113/84 H 110/85 H 102/65 Blood Pressure Mean 93 93 77 Pulse Ox 99 97 97 Oxygen Delivery Method Room Air Room Air 09/30/24 12:00 09/30/24 13:00 09/30/24 14:07 Temperature Temperature Source Pulse Rate 81 82 69 Respiratory Rate 18 17 16 Respiratory Effort Respiratory Depth Respiratory Pattern Blood Pressure 93/64 95/64 97/70 Blood Pressure Mean 73 74 79 Pulse Ox 97 98 99 Oxygen Delivery Method Room Air Room Air Positive well nourished and well developed General Appearance ED: well developed and NAD HEENT Reports TM's clear and moist mucous membranes HEENT Narrative: Normal oropharynx. Normal nasal mucosa Tympanic Membrane ED: Yes TM's clear Eyes PERRL Neck no lymphadenopathy, supple and no JVD Chest Wall inspection of chest normal Chest Narrative: Mild tenderness palpation of the anterior chest/sternum. No chest wall crepitus. Resp normal respiratory effort and clear to auscultation bilaterally Cardio regular rate, regular rhythm and no murmurs GI non-distended Auscultation: normoactive bowel sounds Palpation: soft and tender epigastric; Negative for guarding Extremity normal to inspection Neuro oriented x3 Motor Exam: Negative for general weakness Psych mental status grossly normal Mood & Affect: anxious Skin no rashes or lesions noted and no wounds MDM MDM MDM Narrative Medical decision making narrative: Patient is evaluated for burning chest pain that started this morning. She had nausea vomiting and diarrhea yesterday. Cells like there is been a viral illness at the house as her daughter is also been sick with URI symptoms. Patient is nontoxic-appearing. Her vital signs are normal. She is PE RC negative. Suspicion for PE. Differential also includes ACS, pneumothorax, myocarditis, pericarditis, gastritis, gastroenteritis, CLIVE, pneumonia and electrolyte abnormality. Patient given Zofran in the ED. Work up shows normal EKG, normal delta high-sensitivity troponin. Urinalysis normal. Urine negative. CBC does show leukocytosis of 16.1 but no shift. Suspect this is reactive or associate with her recent vomiting. BMP is normal with a normal BUN and creatinine as well as no significant electrolyte abnormalities. Patient reevaluated and still some mild epigastric tenderness. Is given a GI cocktail with resolution of her symptoms. We discharged home with a referral for GI, Zofran prescription as well as PPI therapy. Given return precautions. At this time given her benign abdominal exam and stable vital signs I do not think requires advanced imaging. Chest x-ray reviewed by myself as well as radiology does not show any acute process. Lab Data Attestation: I reviewed the patient's lab results. Labs: Laboratory Results - last 24 hr 09/30/24 09/30/24 09/30/24 08:29 09:15 11:00 WBC 16.1 H RBC 4.42 Hgb 13.7 Hct 39.9 MCV 90.3 MCH 31.0 MCHC 34.3 RDW Std Deviation 39.7 RDW Coeff of Connie 12.0 Plt Count 440 MPV 9.6 Immature Gran % (Auto) 0.300 Neut % (Auto) 72.2 H Lymph % (Auto) 19.7 [place] % (Auto) 6.7 Eos % (Auto) 0.9 Baso % (Auto) 0.2 Absolute Neuts (auto) 11.6 H Absolute Lymphs (auto) 3.16 Nucleated RBC % 0 Sodium 138 Potassium 3.7 Chloride 108 H Carbon Dioxide 23.0 Anion Gap 8 BUN 11 Creatinine 0.87 Estim Creat Clear Calc 81.06 Est GFR (MDRD) Af Amer 101 Est GFR (MDRD) Non-Af 83 BUN/Creatinine Ratio 12.6 Glucose 117 H Calcium 9.3 Total Bilirubin 0.50 Direct Bilirubin 0.14 AST 27 ALT 16 Alkaline Phosphatase 76 Troponin I High Sens 6 4 Total Protein 8.2 Albumin 4.4 Globulin 3.8 Lipase 43 Urine Color Yellow Urine Clarity Sl. Cloudy Urine pH 5.0 Ur Specific [place] 1.025 Urine Protein 30 H Urine Glucose (UA) Normal Urine Ketones Negative Urine Occult Blood 50 H Urine Nitrite Negative Urine Bilirubin Negative Urine Urobilinogen 1 H Ur Leukocyte Esterase 25 H Urine RBC 0 SEEN Urine WBC 0 SEEN Ur Squamous Epith Cells 0-5 SEEN Urine Bacteria 0 SEEN Hyaline Casts 0-5 SEEN RBC Casts 0-5 SEEN Urine Mucus 1+ Urine Test Negative Radiography Diagnostic Testing: Clinical Impression(s) from Imaging Studies Chest X-Ray 09/30/24 09:25 IMPRESSION: Normal x-ray examination of the chest. Electronically Signed: Damian Cantor MD at 9:50 EST Reading Location ID and State: [address] [place] [address] , Service support , Rhythm Strip Rhythm Strip: Sinus Rhythm Rate: 81 Ectopy: None EKG Initial EKG: Attestation: I personally reviewed and interpreted this EKG as follows: Interpretation: Sinus Rhythm Comments: Normal sinus rhythm at a rate of 81 bpm with sinus arrhythmia Normal axis Normal intervals Normal ST segments Discharge Plan Triage Chief Complaint: Shortness of Breath ED Provider: Tonia Hernandez Dx/Rx/DC Orders Clinical Impression: Chest pain, non-cardiac, Gastritis Instructions: ED Chest Pain, Noncardiac, ED Gastritis (Adult) Prescriptions: New ondansetron 4 mg tablet,disintegrating 4 mg PO Q8H PRN PRN (Reason: Nausea) Qty: 10 0RF omeprazole 20 mg capsule,delayed release(DR/EC) 20 mg PO DAILY Qty: 30 0RF No Action alprazolam 0.25 mg tablet 0.25 mg PO TID PRN (Reason: anxiety) Primary Care Provider: Janine Castillo Referrals: Sen Slater DO [Med Staff - Active Staff] - 3-5 Days Janine Castillo PASamanthaC [Primary Care Provider] - Activity Restrictions/Additional Instructions: Your cardiac workup was normal. No findings consistent with acute heart abnormalities. I suspect your symptoms are more from irritation of your GI tract. You have been given a prescription for Zofran medicine as well as antacid medicine. Please take the antacid medicine (omeprazole) daily. Please follow-up with GI as we discussed. If your symptoms progress, worsen of your further concerns please do not hesitate to return to the emergency room. Print Language: Frisian Disposition Disposition: Home, Self Care
[2024-09-30] MEDS: Ondansetron 4 MG/2 ML Vial IV (09:12)
[2024-09-30 09:17] LABS: AST(SGOT) 27 U/L (15-37); Alanine Aminotransfer ALT/SGPT 16 U/L (13-56); Albumin, Serum 4.4 g/dL (3.2-5.0); Alkaline Phosphatase 76 U/L (45-117); Anion Gap 8 (5-15); BUN 11 mg/dL (7-18); BUN/Creat Ratio 12.6 RATIO (10-20); Bilirubin, Direct 0.14 mg/dL (0.00-0.30); Calcium,Total 9.3 mg/dL (8.5-10.1); Chloride 108 mmol/L (98-107); Creatinine, Serum 0.87 mg/dL (0.55-1.02); EST Glomerular Filtration Rate 83 mL/min (>60); Est Glom Filt Rate - Afr Amer 101 mL/min (>60); Estimated Creatinine Clearance 81.06 ml/min; Globulin 3.8 g/dL (2.2-4.2); Glucose 117 mg/dL (74-106); Lipase 43 U/L (13-75); Potassium 3.7 mmol/L (3.5-5.1); Protein, Total 8.2 g/dL (6.4-8.2); Sodium Level 138 mmol/L (136-145); Troponin-I HS (w/2H Reflex) 6 pg/mL (3.0-54.0)
[2024-09-30 09:20] LABS: Bacteria 0 SEEN /hpf (None Seen); Red Blood Cells-Urine 0 SEEN /hpf (0-5); White Blood Cells 0 SEEN /hpf (0-5)
[2024-09-30 09:23] LABS: Color, Urine Yellow (Yellow); Glucose, Dipstick Normal (Normal); Ketone-Dipstick Negative (Negative); Leukocyte Esterase-Dipstick 25 /ul (Negative); Nitrite-Dipstick Negative (Negative); Occult Blood-Urine 50 /ul (Negative); Protein-Dipstick 30 mg/dl (Negative); Specific Gravity, Urine 1.025 (1.002-1.030); Urine Bilirubin Dipstick Negative (Negative); Urine Clarity Sl. Cloudy (Clear); Urine Urobilinogen 1 mg/dl (Normal)
--- NOTE | 2024-09-30 09:25 | RAD_ITS ---
STUDY: X-RAY CHEST REASON FOR EXAM: Female, 24 years old. Atypical chest pain TECHNIQUE: PA and lateral views of the chest. COMPARISON: 2017 FINDINGS: EKG leads overlie the chest The lungs are clear and expanded. There is no demonstrated pleural abnormality. Normal size heart. Normal mediastinum and patti. Normal visualized pulmonary arteries. Normal visualized aortic arch and descending thoracic aorta. Normal visualized thoracic spine. Normal visualized ribs, clavicles, and shoulders. There is no demonstrated abnormality of the visualized soft tissue structures of the upper abdomen. RAD/Chest PA and Lateral IMPRESSION: Normal x-ray examination of the chest. Electronically Signed: Damian Cantor MD at 9:50 EST ,
[2024-09-30 09:29] LABS: Hyaline Cast 0-5 SEEN /lpf (0-5); Squamous Epithelial Cells - UA 0-5 SEEN /hpf (5-10)
[2024-09-30 09:30] LABS: Mucous, Urine 1+ /hpf (<or=2+); Red Cell Cast 0-5 SEEN /lpf (None Seen)
[2024-09-30 09:31] LABS: Internal QC Validated? YES +Cl - CLEAR BKGD; Pregnancy, Urine Negative Negative
[2024-09-30 10:52] LABS: Reflex Troponin-HS? (from REC) Y
[2024-09-30 11:25] LABS: Troponin-I HS 4 pg/mL (3.0-54.0)
[2024-09-30 12:01] LABS: Absolute Lymphocyte Count 3.16 X10^3/uL (0.83-4.51); Absolute Neutrophil Count 11.6 X10^3/uL (2.0-7.7); Basophil# 0.04 X10^3/uL; Basophil% 0.2 % (0-1); Eosinophil# 0.15 X10^3/uL; Eosinophils% 0.9 % (0-5); Hematocrit 39.9 % (37-47); Hemoglobin 13.7 g/dL (12.0-15.0); Lymphocyte # 3.16 X10^3/ul (0.83-4.51); Lymphocyte % 19.7 % (19-41); Mean Corp Hgb Conc 34.3 g/dL (32-36); Mean Corpuscular Volume 90.3 fL (81-99); Mean Platelet Vol. 9.6 fl (6.2-12.0); Monocyte# 1.07 X10^3/uL; Monocyte% 6.7 % (0-10); NRBC Flagged by Analyzer 0 % (0-5); Neutrophil # 11.59 X10^3/uL (2.7-7.7); Neutrophil % 72.2 % (47-70); Platelet Count 440 K/mm3 (150-450); RBC Distribution Width SD 39.7 fl (35.1-43.9); Red Blood Count 4.42 M/mm3 (4.2-5.4); White Blood Count 16.1 K/mm3 (4.4-11.0)
[2024-09-30] MEDS: Lidocaine 2% Viscous15 ML UDC 15 ML PO (13:20)
[2024-09-30] MEDS: Mag Hydrox/Al Hydrox/Simeth 30 ML UDC PO (13:21)
== END 2024-09-30 14:31 | disposition home or self-care (01) ==
PROVIDERS: Emergency Provider Emergency Medicine; PCP Family Medicine; Visit Provider Emergency Medicine
DX: R07.89 Other chest pain (principal); K29.70 Gastritis, unspecified, without bleeding; R10.816 Epigastric abdominal tenderness; R06.00 Dyspnea, unspecified; F32.A Depression, unspecified; F41.9 Anxiety disorder, unspecified; F17.210 Nicotine dependence, cigarettes, uncomplicated; Z90.49 Acquired absence of other specified parts of digestive tract
CPT/HCPCS: 71046; 80048; 80076; 81001; 81025; 83690; 84484; 85025; 87631; 93005; 96374; 99284; A4216; J2405

== ENCOUNTER → 2024-10-25 | Outpatient (CLI) | payer OTHER, SELFPAY ==
[2024-10-29 00:07] LABS: Giardia Lamblia, Stool EIA Negative (Negative); Pancreatic Elastase, Fecal > 800 (>200)
[2024-10-31 07:07] LABS: Calprotectin, Stool 106 ug/g (0-120)
== END | disposition home or self-care (01) ==
LOC: LABSPEC 10-26 09:44
PROVIDERS: PCP Family Medicine; Referring Provider Student in an Organized Health Care Education/Training Program; Visit Provider Student in an Organized Health Care Education/Training Program
DX: R19.7 Diarrhea, unspecified (principal); K58.9 Irritable bowel syndrome, unspecified
CPT/HCPCS: 82653; 83993; 87329; 87506

== ENCOUNTER → 2024-11-22 | Outpatient (CLI) | payer OTHER, SELFPAY ==
--- NOTE | 2024-11-22 12:59 | NM_ITS ---
PROCEDURE: GASTRIC EMPTYING STUDY REASON FOR EXAM: Nausea. Early satiety. TECHNIQUE: The patient ingested a mixture of sulfur colloid in oatmeal. Imaging was obtained. RADIOPHARMACEUTICAL: 1.1 mCi of technetium labeled sulfur colloid. COMPARISON: None. FINDINGS: Half of the ingested radiopharmaceutical exited the stomach at 90 minutes. This is abnormal. NM/Gastric Emptying Study IMPRESSION: Abnormal gastric emptying study. Reading Location: [id number]
== END | disposition home or self-care (01) ==
LOC: NM 12:51
PROVIDERS: PCP Family Medicine; Referring Provider Student in an Organized Health Care Education/Training Program; Visit Provider Student in an Organized Health Care Education/Training Program
DX: R11.2 Nausea with vomiting, unspecified (principal)
CPT/HCPCS: 78264; A9541

== ENCOUNTER 2025-08-15 07:37 | Day surgery (SDC) | payer OTHER, SELFPAY ==
[2025-08-15] VITALS (9 sets, daily range): BP systolic 107–117; BP diastolic 72–86; PULSE 69–88; RESP 16–18; TEMP 36.2–36.8; O2SAT 98–100; BMI 20.2
--- OUTSIDE RECORDS SUMMARY | 2025-08-15 07:40 | XMS RPT_ITS | CCD ---
Author Organization [facility] Care Team Providers Care Tube Bender Name Role Phone Andra Comer Unavailable Unavailable Andra Comer Unavailable Unavailable Janine Guillen Primary Care Provider Janine Castillo PA-C Primary Care Provider Janine Castillo PA-C Primary Care Provider [phone] Janine Castillo PA-C Referring Provider [phone] Melony WAAN, Dr. Vazquez Attending Provider Dr. Tonia Hernandez DO Attending Provider Dr. Tonia Hernandez DO Emergency Provider [phone] Sandra Sin Attending Provider Sandra Sin Referring Provider ELDER SALDANA Attending Unavailable ELDER SALDANA Primary Care Unavailable ELDER SALDANA Admitting Unavailable ADOLFO CASTILLOLY Referring Unavailable ADOLFO CASTILLOLY Consulting Unavailable PROVIDER, UNKNOWN Consulting Unavailable ANNA, JANINE Primary Care Unavailable ANNA, JANINE Admitting Unavailable ADOLFO CASTILLOLY Attending Unavailable ANNA, JANINE Primary Care Unavailable [place], JANINE Admitting Unavailable ADOLFO CASTILLOLY Attending Unavailable Janine Castillo PA-C Primary Care Physician Janine Castillo PA-C Referring Provider Sandra Sin Attending Physician Sandra Meyer Attending Unavailable Sandra Meyer Referring Unavailable [facility] Primary Care Unavailable [facility] [place] Primary Care Unavailable Sandra Meyer Attending Unavailable Sandra Meyer Referring Unavailable Tonia Hernandez Attending Unavailable [facility] [place] Primary Care Unavailable [facility] [place] Primary Care Unavailable Sen Slater Attending Unavailable [facility] [place] Primary Care Unavailable Taylor Ty Attending Unavailable [facility] [place] Referring Unavailable [facility] [place] Referring Unavailable Sandra Meyer Attending Unavailable [facility] [place] Primary Care Unavailable [facility] [place] Referring Unavailable [facility] [place] Primary Care Unavailable Sandra Meyer Attending Unavailable Medications Current Medications Medication Drug Class(es) Dates Sig (Normalized) Sig (Original) ALPRAZolam 0.25 mg oral tablet (5 sources) Benzodiazepine Start: 07-25-2024 take 1 tablet by mouth three times daily as needed for anxiety Start: 02-04-2022 ALPRAZolam (XA NAX) 0.25 mg tablet etonogestrel 68 mg drug implant (6 sources) Progestin Start: 02-17-2022 End: 02-16-2025 etonogestrel (NEXPLANON) subdermal implant 68 mg Indications: Insertion of implantable subdermal contraceptive 1 Each by SUBDERMAL route as directed. 1 Each 0 02/17/2022 02/16/2025 Active Start: 07-13-2016 etonogestrel s ubdermal implant 68 mg (NEXPLANON) 1 Each by SUBDERMAL route one time only for 1 dose. 1 Each 0 07/13/2016 Active Comment on above: 1 Each by SUBDERMAL route as directed. nitrofurantoin, macrocrystals 25 mg / nitrofurantoin, monohydrate 75 mg oral capsule (2 sources) Nitrofuran Antibacterial Start: End: take 1 capsule by mouth twice daily nitrofurantoin monohydrate and macrocrystal (MACROBID) 100 mg capsule Indications: Urinary frequency Take 1 capsule by mouth two times a day for 5 days. 10 capsule 0 02/25/2024 03/01/2024 Active nystatin 100 unt/mg / triamcinolone acetonide 0.001 mg/mg topical ointment (2 sources) Polyene Antifungal, Corticosteroid Start: nystatin-triamcinolon e (MYCOLOG) ointment Indications: Vaginal burning Apply sparingly to perineum twice daily for irritation/infection. 30 g 0 02/25/2024 Active ondansetron 4 mg disintegrating oral tablet (5 sources) Serotonin-3 Receptor Antagonist Start: End: take 1 tablet by mouth every eight hours oxyCODONE hydrochloride 5 mg oral tablet (4 sources) Opioid Agonist Start: End: take 1 tablet by mouth every eight hours as needed for pain oxyCODONE IR (ROXICODONE) 5 mg immediate release tablet Indications: Postoperative state Take 1 tablet by mouth every 8 hours as needed for pain for up to 4 days. 12 tablet 0 12/18/2021 12/22/2021 Active Start: 12-16-2021 End: 07-25-2024 take 5-10 mg by mouth every six hours as needed for pain Oxycodone 5 mg Tablet Discontinued 5 - 10 mg PO EVERY 6 HOURS NEEDED as needed for Pain Score 4-10 10 5 0 December 16, 2021 July 25, 2024 1:00pm Postoperative pain Other acute postprocedural pain Comment on above: Take 1 tablet by [facility] every 8 hours as needed for pain for up to 4 days. pantoprazole 40 mg delayed release oral tablet (1 source) Proton Pump Inhibitor Start: 07-17-20 take 1 tablet by mouth once daily 24 hr venlafaxine 75 mg extended release oral capsule (3 sources) Serotonin and Norepinephrine Reuptake Inhibitor Start: 02-05-20 take 1 capsule by mouth once daily venlafaxine ER (EFFEXOR XR) 75 mg 24 hr capsule Take 75 mg by mouth once daily. 0 02/04/2022 Active Comment on above: Take 75 mg by mouth once daily. Completed/Discontinued Medications Medication Drug Class(es) Dates Sig (Normalized) Sig (Original) acetaminophen 500 mg oral tablet (10 sources) Start: 12-16-2021 End: 07-25-2024 take 2 tablets by mouth every six hours Acetaminophen 500 mg Tablet Discontinued 1000 mg PO EVERY 6 HOURS 0 0 December 15, 2021 11:00pm July 25, 2024 1:00pm take 2 tablets by mo [facility] every six hours as needed acetaminophen (TYLENOL) 325 mg tablet Ta ke 650 mg by mouth every 6 hours as needed. 0 Active Comment on above: Take 650 mg by mouth every 6 hours as needed. hydrOXYzine pamoate 25 mg oral capsule (4 sources) Antihistamine End: 01-27-20 take 1 capsule by mouth every eight hours as needed hydrOXYzine pamoate (VISTARIL) 25 mg capsule Take 25 mg by mouth three times daily as needed. 0 01/26/2022 Discontinued Comment on above: Take 25 mg by mouth three times daily as needed. ibuprofen 600 mg oral tablet (2 sources) Nonsteroidal Anti-inflammatory Drug Start: 12-17-19 End: 07-25-20 take 1 tablet by mouth every six hours Ibuprofen 600 mg Tablet Discontinued 600 mg PO EVERY 6 HOURS 0 December 15, 2021 11:00pm July 25, 2024 1:00pm omeprazole 40 mg delayed release oral capsule (4 sources) Proton Pump Inhibitor Start: 10-18-19 End: 07-17-20 take 1 capsule by mouth once daily Omeprazole 40 mg capsule,delayed release(DR/EC) Discontinued 40 mg PO daily 60 October 18, 2024 12:00am July 17, 2025 7:28am Start: 09-30-2024 End: 10-18-2024 take 1 capsule by mouth once daily Omeprazole 20 mg capsule,delayed release(DR/EC) Discontinued 20 mg PO DAILY 30 September 30, 2024 12:00am October 18, 2024 11:25am Baetzugc-Ip-Oul-Fe-FA ( VITAMIN) tab (4 sources) End: 01-26-2022 take 1 tablet by mouth once Fzvjexjn-Bv-Khk-Fe-FA ( VITAMIN) tab Take 1 tablet by mouth. 0 01/26/2022 Discontinued take 1 tablet by mouth once Pren atal Rhjirwdq-Hx-Epm-Fe-FA ( VITAMIN) tab Take 1 tablet by mouth. 0 Active Comment on above: Take 1 tablet by marilou th. Vit,Klaus 66-Pkgn-Rihul (Prenatabs Fa) 29-1 mg Tablet (1 source) Start: 12-15-2021 End: 07-25-2024 Vit,Klaus 68-Fngh-Zukal (Prenatabs Fa) 29-1 mg Tablet Discontinued 1 {tbl} PO DAILY December 14, 2021 11:00pm July 25, 2024 1:00pm Vit,Eymp14-Dwym-Snbh c (Prenatabs Fa) 29-1 mg Tablet (1 source) Start: 12-15-2021 End: 07-25-2024 Vit,Binv33-Qwnk-Bwiga (Prenatabs Fa) 29-1 mg Tablet Discontinued 1 {tbl} PO DAILY December 15, 2021 12:00am July 25, 2024 2:00pm sertraline 50 mg oral tablet (6 sources) Serotonin Reuptake Inhibitor Start: 12-15-2021 End: 07-25-2024 take 1 tablet by mouth once daily Sertraline (Zoloft) 50 mg Tablet Discontinued 50 mg PO DAILY December 14, 2021 11:00pm July 25, 2024 1:00pm anxiety and depression Start: 05-01-2021 End: 01-26-2022 sertraline (ZOLOFT) 50 mg ta blet 100 mg. 0 05/01/2021 01/26/2022 Discontinued Comment on above: 100 mg. simethicone 80 mg chewable tablet (2 sources) Start: 12-16-2021 End: 07-25-2024 take 1 tablet by mouth at bedtime as needed for pain Simethicone (Mi-Acid Gas Relief(Simethicon)) 80 mg Tablet,Chewable Discontinued 80 mg PO AFTER MEALS AND AT BEDTIME as needed for Indigestion/stomach pain 0 0 December 15, 2021 11:00pm July 25, 2024 1:00pm Problems Active Problems Problem Classification Problem Date Documented Da te Episodic/Chronic Abdominal pain (3 sources) Abdominal pain; Translations: [Unspecified abdominal pain] 10-18-2024 Episodic Contraceptive and procreative management (4 sources) Patient encounter status; Translations: [Encounter for initial prescription of implantable subdermal contraceptive] Episodic Diabetes mellitus without complication (1 source) Hyperglycemia, unspecified; Translations: [Hyperglycemia, unspecified] Onset: 06-27-2025 Episodic Gastritis and duodenitis (2 sources) Gastritis; Translations: [Gastritis, unspecified, without bleeding] 10-08-2024 Episodic Genitourinary symptoms and ill-defined conditions (1 source) Increased frequency of urination; Translations: [Frequency of micturition] 02-25-2024 Episodic Nonspecific chest pain (2 sources) Non-cardiac chest pain; Translations: [Other chest pain] 10-08-2024 Episodic Other aftercare (1 source) 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; Translations: [Other mcc (current) drug therapy] Onset: 06-17-2025 Episodic Other and unspecified benign neoplasm (3 sources) Lipoma of back; Translations: [Benign lipomatous neoplasm of skin and subcutaneous tissue of trunk] 08-02-2024 Episodic Comment on above: Left mid Other complications of (7 sources) Disease caused by 2019-nCoV; Translations: [Other viral diseases complicating , third trimester] Onset: 10-26-2021 Resolved: 01-26-2022 10-26-2021 Episodic Other female genital disorders (1 source) Burning sensation of vagina; Translations: [Unspecified condition associated with female genital organs and menstrual cycle] 02-25-2024 Episodic Other gastrointestinal disorders (4 sources) Diarrhea; Translations: [Diarrhea, unspecified] 10-18-2024 Episodic Other gastrointestinal disorders (1 source) Finding of abdomen; Translations: [Other specified symptoms and signs involving the digestive system and abdomen] 10-18-2024 Episodic Other nervous system disorders (2 sources) Postoperative pain ; Translations: [Other acute postprocedural pain] 12-16-2021 Episodic Other and delivery including normal (2 sources) state; Translations: [Encounter for care and examination of mother immediately after delivery] Episodic Other screening for suspected conditions (not mental disorders or infectious disease) (5 sources) Encounter for screening for lipoid disorders; Translations: [Encounter for screening for diabetes mellitus] Onset: 06-17-2025 Episodic Residual codes; unclassified (1 source) Postoperative state; Translations: [Other specified postprocedural states] Episodic Residual codes; unclassified (2 sources) Gestation period, 31 weeks; Translations: [31 weeks gestation of ] 10-19-2021 Episodic Past or Other Problems Problem Classification Problem Date Documented Da te Episodic/Chronic Nausea and vomiting (5 sources) Nausea and vomiting; Translations: [Nausea with vomiting, unspecified] Onset: 12-04-2024 10-18-2024 Episodic Other complications of (5 sources) Urinary tract infection in ; Translations: [Unspecified infection of urinary tract in , unspecified trimester] Onset: 08-13-2021 Resolved: 01-26-2022 08-13-2021 Episodic Other complications of (5 sources) High risk ; Translations: [Supervision of other high risk pregnancies, third trimester] Onset: 10-26-2021 Resolved: 01-26-2022 10-26-2021 Episodic Other gastrointestinal disorders (1 source) Diarrhea, unspecified; Translations: [Diarrhea, unspecified] Onset: 11-08-2024 Episodic Other lower respiratory disease (1 source) Shortness of breath; Translations: [Shortness of breath] Onset: 10-23-2024 Episodic Previous (5 sources) ; Translations: [Maternal care for unspecified type scar from previous delivery] Onset: 04-09-2021 Resolved: 01-26-2022 04-09-2021 Episodic Residual codes; unclassified (5 sources) History of previous intrauterine growth restricted ; Translations: [Personal history of other complications of , childbirth and the puerperium] Onset: 07-03-2021 Resolved: 01-26-2022 07-03-2021 Episodic Screening and history of mental health and substance abuse codes (8 sources) H/O: depression; Translations: [Personal history of other mental and behavioral disorders] Onset: 04-09-2021 04-09-2021 Episodic Results Test Name Value Interpretation Reference Range Facility CBC + DIFFon 07-17-2025 Baso # 0.03 x10EE3/UL Normal 0.00 - 0.10 [facility] Comment on above: Performed By: #### 2 [id number] #### [facility],[address] [place] [address] Basophils/100 WBC (Bld) 0.4 % Normal 0.0 - 2.[address] [facility] Comment on above: Performed By: #### 2 61154 #### [facility],[address] [place] [address] CBC + DIFF Normal [facility] Comment on above: Result Comment: CBC- COMPLETE BLOOD COUNT Performed By: #### 2 [id number] #### [facility],[address] [place] [address] 28884 EO # 0.06 x10EE3/UL Normal 0.00 - 0.50 [facility] Comment on above: Performed By: #### 2 [id number] #### [facility],[address] [place] [address] 96672 Eosinophils/100 WBC (Bld) 0.9 % Normal 0.0 - 7.0 [facility] Comment on above: Performed By: #### 2 79929 #### [facility],[address] [place] [address] 00471 Erythrocyte distribution width (RBC) [Ratio] 12.7 % Normal 12.0 - 15.6 [facility] Comment on above: Performed By: #### 2 11359 #### [facility],[address] [place] [address] Hematocrit (Bld) [Volume fraction] 39.6 % Normal 34.0 - 46.0 [facility] Comment on above: Performed By: #### 2 47749 #### [facility],[address] [place] [address] 04208 Hemoglobin (Bld) [Mass/Vol] 13.8 g/dL Normal 12.0 - 16.0 [facility] Comment on above: Performed By: #### 2 93501 #### [facility],[address] [place] [address] 30161 Lymph # 1.91 x10EE3/UL Normal 0.80 - 2.80 [facility] Comment on above: Performed By: #### 2 83994 #### [facility],[address] [place] [address] 62399 Lymphocytes/100 WBC (Bld) 27.9 % Normal 20.0 - 45.0 [facility] Comment on above: Performed By: #### 2 63888 #### [facility],[address] [place] [address] 97340 MANUAL DIFF N/A Normal [facility] Comment on above: Performed By: #### 2 61402 #### [facility],[address] [place] [address] MCH (RBC) [Entitic mass] 31 pg Normal 27 - 33 [facility] Comment on above: Performed By: #### 2 22588 #### [facility],[address] [place] [address] MCHC 35 X10 3 Normal 32 - 36 [facility] Comment on above: Performed By: #### 2 71784 #### [facility],[address] [place] [address] MCV (RBC) [Entitic vol] 91 fL Normal 80 - [address] [facility] Comment on above: Performed By: #### 2 85027 #### [facility],[address] [place] [address] Woodruff # 0.48 x10EE3/UL Normal 0.20 - 1.00 [facility] Comment on above: Performed By: #### 2 89860 #### [facility],[address] [place] [address] MONOS % 7.0 % Normal 0.0 - 10.0 [facility] Comment on above: Performed By: #### 2 73558 #### [facility],[address] [place] [address] Morphology Syed (Bld) [Interp] N/A Normal [facility] Comment on above: Performed By: #### 2 37319 #### [facility],[address] [place] [address] Neut # 4.37 x10EE3/UL Normal 1.50 - 7.10 [facility] Comment on above: Performed By: #### 2 61143 #### [facility],[address] [place], [place] [id number] Neutrophils/100 WBC (Bld) 63.8 % Normal 46.0 - 76.0 [facility] Comment on above: Performed By: #### 2 03710 #### [facility],[address] [place] [address] 39755 PLATELET 377 x10EE3/UL Normal 150 - 450 [place] Comment on above: Performed By: #### 2 34411 #### [facility],[address] [place] [address] 83552 Platelet mean volume (Bld) [Entitic vol] 7.7 fL Normal 6.6 - 10.5 [facility] Comment on above: Result Comment: AUTO MATED DIFFERENTIAL Performed By: #### 2 15680 #### [facility],[address] [place] [address] 46555 RBC 4.38 x 10EE6/UL Normal 4.10 - 5.30 [facility] Comment on above: Performed By: #### 2 53487 #### [facility],[address] [place] [address] 66684 WBC 6.9 x 10EE3/UL Normal 4.5 - 10.8 [facility] Comment on above: Performed By: #### 2 34855 #### [facility],[address] [place] [address] 97588 CMP with eGFRon 07-17-2025 AGE 24 years Normal [facility] Comment on above: Performed By: #### 2 80067 #### [facility],[address] [place] [address] 92541 Albumin [Mass/Vol] 4.5 g/dL Normal 3.4 - 5.0 [facility] Comment on above: Performed By: #### 2 52985 #### [facility],[address] [place] [address] 36161 Albumin/Globulin [Mass ratio] 1.5 {ratio} Normal 0.9 - 1.6 [facility] Comment on above: Performed By: #### 2 92425 #### [facility],[address] [place] [address] 32659 ALK PHOS 62 U/L Normal 46 - 116 [facility] Comment on above: Performed By: #### 2 39706 #### [facility],[address] [place] [address] 71330 ALT [Catalytic activity/Vol] 11 U/L Low 16 - 63 [facility] Comment on above: Performed By: #### 2 39621 #### [facility],[address] [place] [address] 25633 Anion gap [Moles/Vol] 10 mmol/L Normal 10 - 20 [facility] Comment on above: Performed By: #### 2 96206 #### [facility],[address] [place] [address] 43578 AST [Catalytic activity/Vol] 14 U/L Normal 13 - 39 [facility] Comment on above: Performed By: #### 2 89983 #### [facility],[address] [place] [address] 08849 B/C RATIO 14 ratio Normal 0 - 30 [facility] Comment on above: Performed By: #### 2 74133 #### [facility],[address] [place] [address] 27037 Bilirubin [Mass/Vol] 0.5 mg/dL Normal 0.2 - 1.0 [facility] Comment on above: Performed By: #### 2 84402 #### [facility],[address] [place] [address] 58146 Calcium [Mass/Vol] 9.3 mg/dL Normal 8.5 - 10.1 [facility] Comment on above: Performed By: #### 2 22615 #### [facility],[address] [place] [address] 80726 Chloride [Moles/Vol] 102 mmol/L Normal 98 - 107 [facility] Comment on above: Performed By: #### 2 57031 #### [facility],[address] [place] [address] 76245 CMP with eGFR Normal [place] Comment on above: Result Comment: COMP REHENSIVE METABOLIC PANEL Performed By: #### 2 01078 #### [facility],[address] [place] [address] 81141 CO2 [Moles/Vol] 28.9 mmol/L Normal 21.0 - 32.0 [facility] Comment on above: Performed By: #### 2 05100 #### [facility],[address] [place] [address] 42259 Creatinine [Mass/Vol] 0.83 mg/dL Normal 0.55 - 1.02 [facility] Comment on above: Performed By: #### 2 81246 #### [facility],[address] [place] [address] 59765 GFR/1.73 sq M.predicted among non-blacks MDRD (S/P/Bld) [Vol rate/Area] mL/min/{1.73_m2} Normal 60 - 999 [facility] Comment on above: Performed By: #### 2 73629 #### [facility],[address] [place] [address] Result Comment: ACCO RDING TO THE NATIONAL KIDNEY DISEASE EDUCATION PROGRAM(NKDE), A NORMAL eGFR IS A VALUE GREATER THAN OR EQUAL TO 60 ML/MIN/1.73 SQ METERS. CHRONIC KIDNEY DISEASE: <60mL/MIN/1.73 SQ METERS KIDNEY FAILURE: <15mL/MIN/1.73 SQ METERS THIS TEST SHOULD ONLY BE USED FOR PATIENTS 18 YEARS OF AGE AND OLDER. Globulin (S) [Mass/Vol] 3.0 g/dL Normal 1.5 - 3.8 [facility] Comment on above: Performed By: #### 2 31649 #### [facility],[address] [place] [address] 15236 Glucose [Mass/Vol] 88 mg/dL Normal 74 - 106 [facility] Comment on above: Performed By: #### 2 05246 #### [facility],[address] [place] [address] 62494 Potassium [Moles/Vol] 3.5 mmol/L Normal 3.5 - 5.1 [facility] Comment on above: Performed By: #### 2 79739 #### [address] [address] Protein [Mass/Vol] 7.5 g/dL Normal 6.4 - 8.2 [facility] Comment on above: Performed By: #### 2 92670 #### [place] [id number] Sodium [Moles/Vol] 137 mmol/L Normal 136 - 145 [facility] Comment on above: Performed By: #### 2 23347 #### [place] [id number] Urea nitrogen [Mass/Vol] 12 mg/dL Normal 7 - 18 [facility] Comment on above: Performed By: #### 2 63609 #### [place] [id number] CT ABDOMEN/PELVIS [facility] 2024 CT ABDOMEN/PELVIS [address] ? [place] [address] ? Patient: MERCED TORREZ Phone#: : 2000 Age: 24 Gender: F Pt. Type: ER Account: [id number] Location: [facility] Ordering: ELDER SALDANA Exam Date: 07/17/2025/16:24 Family Phys: JANINE [place] Charge Code: 607194 Physician: [place]arton Order #: [id number] Dose#: [id number] PROCEDURE: CT ABDOMEN/PELVIS WITH CONTRAST COMPARISON: None. INDICATIONS: Abdominal Pain. TECHNIQUE: After obtaining the patient's consent, CT images were created with non-ionic intravenous contrast material. All CT scans at this facility use dose modulation, iterative reconstruction, and/or weight based dosing when appropriate to reduce radiation dose to as low as reasonably achievable. IV CONTRAST: Omnipaque 350,80ml TOTAL DOSE: 8.6 CTDIvol(mGy) FINDINGS: LIVER: Normal. No enlargement, atrophy, abnormal density, or significant focal lesion. BILIARY: The gallbladder is absent. Surgical clips are present in the gallbladder fossa. PANCREAS: Normal. No lesion, fluid collection, ductal dilatation, or atrophy. SPLEEN: Normal. No enlargement or focal lesion. KIDNEYS: Normal. No mass, obstruction, or calcification. ADRENALS: Normal. No mass or enlargement. AORTA/VASCULAR: Normal. No aneurysm or dissection. RETROPERITONEUM: Normal. No mass or adenopathy. BOWEL/MESENTERY: Surgical clip is present the anterior right pelvis.. No visible mass, obstruction, or bowel wall thickening. ABDOMINAL WALL: Normal. No mass or hernia. URINARY BLADDER: Normal. No visible focal wall thickening, lesion, or calculus. PELVIC NODES: Normal. No adenopathy. PELVIC ORGANS: A 17 x 10 millimeter adnexal cyst is present. Small amount of free fluid is present in the cul-de-sac. BONES: Normal. No bony lesion or fracture. LUNG BASES: Normal. No visible pulmonary or pleural disease. OTHER: Negative. Continued Report - Page 2 of 2 Patient: MERCED TORREZMillie Phone#: : 2000 Age: 24 Gender: F Pt. Type: ER Account: [id number] Location: 052 Ordering: ELDER SALDANA Exam Date: 07/17/2025/16:24 Family Phys: JANINE CASTILLO Charge Code: [id number] Physician: Wharton Order #: [id number] Dose#: [id number] CONCLUSION: 1. Small amount of free fluid is present in the cul-de-sac. A left adnexal cyst is present. 2. No other acute abdominal or pelvic abnormality is identified. 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 Allergies verified and confirmed 5 rights. IV 15:51 07/17/2025 40 mg (NOW x1) patency established. IV site checked: no pain, redness, or Crystal Ruslan, swelling. IV flushed thoroughly pre-medication R.N. administration. Information reviewed with patient Scanned including reason for taking this medication, signs of allergic reaction and precautions. Verbalizes understanding. - 15:52 Lian Mercer R.N. Zofran IVP 4 mg 15:51 07/17 Zofran IVP 4 mg given via Site# 1. Allergies Given (NOW x1) verified and confirmed 5 rights. IV patency established. IV 15:51 07/17/2025 site checked: no pain, redness, or swelling. IV flushed marina Everett pre-medication administration. Information R.N. reviewed with patient including reason for taking this Scanned medication, signs of allergic reaction and precautions. Verbalizes understanding. - 15:51 Lian Mercer R.Radha. 1 of 1 Normal [facility] ED NURSES CLINICAL NOTEon ED NURSES CLINICAL NOTE Nurse Narrative - MERCED TORREZ, : 2000, , Nurse Clinical Narrative [address] [address] [id number] 07/17/2025 15:18:00 Patient: MERCED TORREZ Sex: Female : 2000 Age: 24y Disposition: Discharge Disposition Decision Time: 17:55 07/17/2025 Departure Time: 17:59 07/17/2025 TRIAGE Arrived by private vehicle. Historian: (patient). Accompanied by family. Primary physician (Kaelyn Castillo). Triage time: 15:22 07/17/2025. Acuity: LEVEL 3. Chief Complaint: ABDOMINAL PAIN, NAUSEA and VOMITING and (headache). Onset. (2 months). The patient has had nausea, vomiting and abdominal pain. The pain is described as located in the upper abdomen. No diarrhea, constipation or fever. SEPSIS SCREEN: NEGATIVE. SIRS criteria negative. No possible sources of infection. -- 15:33 07/17/25 EMYT Lian Mercer R.N. 15:33 07/17/25. BP: 117/68 MAP: 84. HR: 72. RR: 16. O2 saturation: 100% on room air. Temperature: 97.9 F (oral). Pain level now 04/04. -- 15:33 07/17/25 EMYT Lian Mercer R.N. Measurements: 15:28 07/17/25 Wt: 52.2 kg, Ht/Johnny: 63.0 in, BMI: 20.37 -- 15:28 07/17/25 EMYT Lian Mercer R.N. Medications: Wellbutrin XL 300 mg 24 hr tablet, extended release -- 15:30 07/17/25 TEAGAN Mercer R.N. 1 of 4 Nurse Narrative - MERCED TORREZ, : 2000, , Allergies: no known drug allergies -- 15:25 07/17/25 TEAGAN Mercer R.N. Problems: Anxiety disorder -- 15:34 07/17/25 TEAGAN Mercer R.N. Surgeries: Cholecystectomy -- 15:26 07/17/25 TEAGAN Mercer R.N. History 15:22 07/17/25. PAST MEDICAL HX: Denies current : 3 months ago. SOCIAL HX: Never smoker. Occasional alcohol use. Drug use: marijuana. (2 weeks). The patient has not traveled outside the [place] Infectious disease exposure: No infectious disease exposure. ABUSE ASSESSMENT: The patient answered yes to the question(s) Do you feel safe in your home? and no to the question(s) Are you afraid to go home?. SELF HARM ASSESSMENT: Self harm assessment was performed. The patient answered no to the question(s) Have you recently felt down, depressed, or hopeless? and Do you have thoughts of harming or killing yourself?. FALL RISK ASSESSMENT: Fall risk assessment completed. No risk factors identified. SKIN INTEGRITY ASSESSMENT: Skin integrity risk assessment completed. No skin integrity risk identified. -- 15:33 07/17/25 TEAGAN Mercer R.N. Interventions 2 of 4 Nurse Narrative - MERCED TORREZ, : 2000, , 15:22 07/17/25. Advanced care plan. Patient does not have advanced directive. -- 15:33 07/17/25 EMYT Lian Mercer R.N. PHYSICAL ASSESSMENT 15:45 07/17/25. Ambulatory to room. Patient gowned. GENERAL / NEURO / PSYCH: Alert. Oriented X 4. Appears in no acute distress. RESPIRATORY: Respirations not labored. Breath sounds within normal limits. CVS: Normal sinus rhythm noted. Capillary refill less than 2 seconds. GI / : The patient has had nausea. Emesis noted. The patient has diarrhea (last BM 07/16). It has contained mucous. Abdomen soft. Abdominal tenderness present. Abdominal tenderness in the upper abdomen. Bowel sounds within normal limits. SKIN: Skin is warm and dry. -- 16:16 07/17/25 TEAGAN Mercer R.N. NURSING PROGRESS NOTES 15:35 07/17/25. Site #1 started in the right antecubital space with an 18g needle with aseptic technique and good blood return; 1 attempt. Blood drawn: rainbow set tube(s). Saline lock flushed with 5 mL saline. -- 15:40 07/17/25 TEAGAN Brown R.N. 15:37 07/17/25. Urine collected. -- 15:40 07/17/25 TEAGAN Brown R.N. 15:51 07/17/25. Zofran IVP 4 mg given via Site# 1. Allergies verified and confirmed 5 rights. IV patency established. IV site checked: no pain, redness, or swelling. IV flushed thoroughly pre-medication administration. Information reviewed with patient including reason for taking this medication, signs of allergic reaction and precautions. Verbalizes understanding. -- 15:51 07/17/25 EDT Lian Mercer R.N. 15:51 07/17/25. Pantoprazole (Protonix) IVP 40 mg given via Site# 1. Allergies verified and confirmed 5 rights. IV patency established. IV site checked: no pain, redness, or swelling. IV flushed thoroughly pre-medication administration. Information reviewed with patient including reason for taking this medication, signs of allergic reaction and precautions. Verbalizes understanding. -- 15:52 07/17/25 EDT Lian Mercer R.N. 16:01 07/17/25. BP: 111/81 MAP: 89 mmHg. HR: 68 bpm. -- 21:34 07/17/25 EDT Lian Mercer R.N. 16:04 07/17/25. HR: 74 bpm. O2 saturation: 100%. -- 21:34 07/17/25 EDT Lian Mercer R.N. 16:14 07/17/25. (more content not included)... Normal [facility] ED ORDER SHEET (CPOE ONLY)on 07-17-2025 ED ORDER SHEET (CPOE ONLY) Order Sheet - MERCED TORREZ, : 2000, , [place] [address] [id number] 07/17/2025 Patient: MERCED TORREZ Sex: Female : 2000 Age: 24y MEASUREMENTS: Wt: 52.2 kg, Ht/Johnny: 63.0 in, BMI: 20.37 ALLERGIES: No known drug allergies MEDICATION/IV/DRIP/FLU ID ORDERS Acknowledge Order Description Priority Entered d Completed Pantoprazole (Protonix) 15:30 07/17/2025 15:52 IVP40 mg (NOW x1) Elder 07/17/2025 Fahad Saldana R.N. Zofran IVP4 mg (NOW x1) 15:30 07/17/2025 15:51 Elder 07/17/2025 Fahad Saldana R.N. LAB ORDERS Acknowledge Order Description Priority Entered d Collected Completed CBC w Diff Stat Stat 15:30 15:34 15:40 07/17/2025 07/17/2025 07/17/2025 Bereket Bautista D.O. Brenner, Prashant R.N. 1 of 3 Order MERCED Landeros, : 2000, , CMP Stat Stat 15:30 15:34 15:40 07/17/2025 07/17/2025 07/17/2025 Bereekt Bautista D.O. Brenner, Valeria. R.N. Lipase Stat Stat 15:30 15:34 15:40 07/17/2025 07/17/2025 07/17/2025 Bereket Bautista D.O. Brenner, R.N. R.N. Urinalysis Stat Stat 15:30 15:34 15:40 07/17/2025 07/17/2025 07/17/2025 Bereket Bautista D.O. Brenner, Valeria. R.N. Urine - Stat 15:30 15:34 15:40 HCG Stat 07/17/2025 07/17/2025 07/17/2025 Bereket Bautista D.O. Brenner, R.N. R.N. DIAGNOSTIC STUDY ORDERS Acknowledge Order Description Priority Entered d Completed CT ABD/PEL w Cont Stat Stat 15:30 07/17/2025 15:34 16:27 Elder 07/17/2025 07/17/2025 Fahad Saldana R.N. Brenner, R.N. Order 15:30 Status: Not . Elder Comments: 07/17/2025: Fahad Saldana Reason for Study: Abdominal Pain 2 of 3 Order MERCED Landeros, : 2000, , STAFF ORDERS Acknowledge Order Description Priority Entered d Collected Completed IV Saline Lock 15:30 15:34 15:40 07/17/2025 07/17/2025 07/17/2025 Bereket Bautista D.O. Brenner, R.N. R.N. [Electronically signed by Elder Saldana D.O. (07/17/2025 17:56 EDT)] 3 of 3 Normal [facility] ED PHYSICIAN CLINICAL REPORT on 07-17-2025 ED PHYSICIAN CLINICAL REPORT Narrative - MERCED TORREZ, : 2000, , Physician Clinical Narrative [facility] [address] [place] [address] [id number] 07/17/2025 15:18:00 Patient: MERCED TORREZ Sex: Female : 2000 Age: 24y Disposition: Discharge Disposition Decision Time: 17:55 07/17/2025 Measurements Wt: 52.2 kg, Ht/Johnny: 63.0 in, BMI: 20.37 Initial Vital Sign Measured Renato Time BP MAP HR RR O2Sat ETCO2 Temp n GCS RTS 15:33 117/68 84 72 16 100% 97.9 F 7 07/17/2025 RA Time Seen: 15:22 07/17/2025. Arrived- By private vehicle. Historian- patient. Independent historian- family. HISTORY OF PRESENT ILLNESS Chief Complaint: ABDOMINAL PAIN. It is described as sharp and it is described as located in the epigastric area. This started 2 months. The patient has had nausea and vomiting. (Abdominal pain and nausea over the past 2 months. Initially seen by primary care physician with gastric emptying study. Found to have a slowed emptying. Seen by gastroenterology today who set her up for scope next month. States that the pain is intermittent however the nausea is daily. Not worsened or alleviated by eating. Denies any bloody or bilious vomiting. Denies any change in bowel movements. Urinary frequency. Last menstrual period 3 weeks ago.). REVIEW OF SYSTEMS Narrative - MERCED TORREZ, : 2000, , CONSTITUTIONAL: No fever or chills. : The patient has had urinary frequency. GI: No constipation. Status: Not . PAST HISTORY Anxiety disorder Surgeries: Cholecystectomy Medications: Wellbutrin XL 300 mg 24 hr tablet, extended release Allergies: no known drug allergies SOCIAL HISTORY No alcohol use or drug use. ADDITIONAL NOTES The nursing notes have been reviewed. PHYSICAL EXAM Vital Signs: Have been reviewed. Appearance: Alert. No acute distress. Neck: Normal inspection. Neck supple. CVS: Normal heart rate and rhythm. Heart sounds normal. Pulses normal. Respiratory: No respiratory distress. Breath sounds normal. Abdomen: Soft. Tenderness in the epigastric area. Skin: Skin warm and dry. Normal skin color. Extremities: No lower extremity edema. LABS, X-RAYS, AND EKG 2 of Elyse Singh TORREZMERCED, : 2000, , Laboratory Tests: CBC + DIFF Final UZIEL: 07/17/2025 15:37:00 EDT MsgRcvd: 07/17/2025 16:06 EDT Lab Test Result Reference Status Received 07/17/2025 16:06 CBC + DIFF Final EDT CBC-COMPLETE BLOOD COUNT 07/17/2025 16:06 WBC 6.9 x 10/UL 4.5 - 10.8 Final EDT 07/17/2025 16:06 RBC 4.38 x 10/UL 4.10 - 5.30 Final EDT 07/17/2025 16:06 HEMOGLOBIN 13.8 g/dl 12.0 - 16.0 Final EDT 07/17/2025 16:06 HEMATOCRIT 39.6 % 34.0 - 46.0 Final EDT 07/17/2025 16:06 MCV 91 fl 80 - 99 Final EDT 07/17/2025 16:06 MCH 31 pg 27 - 33 Final EDT 07/17/2025 16:06 MCHC 35 X10 3 32 - 36 Final EDT 07/17/2025 16:06 RDW/CV 12.7 % 12.0 - 15.6 Final EDT 07/17/2025 16:06 PLATELET 377 x10/UL 150 - 450 Final EDT 07/17/2025 16:06 MPV 7.7 fl 6.6 - 10.5 Final EDT 3 of 12 Elyse Singh VANDANA TORREZGALE, : 2000, , AUTOMATED DIFFERENTIAL 07/17/2025 16:06 NEUT % 63.8 % 46.0 - 76.0 Final EDT 07/17/2025 16:06 LYMPH % 27.9 % 20.0 - 45.0 Final EDT 07/17/2025 16:06 MONOS % 7.0 % 0.0 - 10.0 Final EDT 07/17/2025 16:06 EO % 0.9 % 0.0 - 7.0 Final EDT 07/17/2025 16:06 BASO % 0.4 % 0.0 - 2.0 Final EDT 07/17/2025 16:06 Lymph # 1.91 x10/UL 0.80 - 2.80 Final EDT 07/17/2025 16:06 Neut # 4.37 x10/UL 1.50 - 7.10 Final EDT 07/17/2025 16:06 Woodruff # 0.48 x10/UL 0.20 - 1.00 Final EDT 07/17/2025 16:06 EO # 0.06 x10/UL 0.00 - 0.50 Final EDT 07/17/2025 16:06 Baso # 0.03 x10/UL 0.00 - 0.10 Final EDT 07/17/2025 16:06 MANUAL DIFF N/A New Order EDT 07/17/2025 16:06 MORPHOLOGY N/A New Order EDT CMP with eGFR Final UZIEL: 07/17/2025 15:37:00 EDT MsgRcvd: 07/17/2025 16:38 EDT 4 of 12 Elyse - MERCED TORREZ, : 2000, , Lab Test Result Reference Status Received 07/17/2025 16:38 CMP with eGFR Final EDT COMPREHENSIVE METABOLIC PANEL 07/17/2025 16:38 SODIUM 137 mmol/l 136 - 145 Final EDT 07/17/2025 16:38 POTASSIUM 3.5 mmol/L 3.5 - 5.1 Final EDT 07/17/2025 16:38 CHLORIDE 102 mmol/L 98 - 107 Final EDT 07/17/2025 16:38 CO2 28.9 mmol/L 21.0 - 32.0 Final EDT 07/17/2025 16:38 GLUCOSE 88 mg/dl 74 - 106 Final EDT 07/17/2025 16:38 BUN 12 mg/dl 7 - 18 Final EDT 07/17/2025 16:38 CREATININE 0.83 mg/dl 0.55 - 1.02 Final EDT 07/17/2025 16:38 AST/SGOT 14 U/L 13 - 39 Final EDT (more content not included)... Normal [facility] ED SUPER BILLon 07-17-2025 ED SUPER BILL MERCED Lezama, : 2000, , [address] [address] [id number] 07/17/2025 Patient: MERCED TORREZ Sex: Female : 2000 Age: 24y Item Facility Profession Category Description Code al Code Quantity Fee Total Nurse/E/M EMERGENCY 354383 1 $0.00 $0.00 DEPT VISIT HIGH SEVERITYFU NCJ (21440- 25) Nurse/IV/IM/ IVP 739316 1 $0.00 $0.00 Infusions additional push (60890) Nurse/IV/IM/ IVP initial 243371 1 $0.00 $0.00 Infusions (71139) Grand Total $0.00 Providers Elder Saldana D.O. Chief Complaint ABDOMINAL PAIN. 1 of 2 MERCED Lezama, : 2000, , Principal Diagnosis Epigastric abdominal pain. ICD-10 Codes R10.13: Epigastric pain 2 of 2 Normal [facility] ED VISIT SUMMARYon ED VISIT SUMMARY Visit Overview - MERCED TORERZ : 2000, , Visit [address] [address] [id number] 07/17/2025 Patient: MERCED TORREZ Sex: Female : 2000 Age: 24y 07/17/2025 09:37 PM EDT ED Arrival:15:18 07/17/2025 Status:not Recent Travel:no EDT Language:eng Adv Directive:No Isolation Status: Infectious Disease Ethnicity:N Fall Risk:no risk Exposure:no Measurements:5'3 / 160.0 Self-Harm Status:risk Sepsis Screen:negative cm 115.0 lb / 52.2 kg Chief Complaint:ABDOMINAL PAIN, NAUSEA, VOMITING, (2 months), (headache ), and (Kaelyn Henriette ) ALLERGIES No Known Drug Allergies HOME MEDICATIONS Wellbutrin XL 300 mg 24 hr tablet, extended release 1 of 3 Visit Prasanna - MERCED TORREZ, : 2000, , PAST MEDICAL HISTORY / PROBLEMS Anxiety disorder PAST SURGICAL HISTORY Cholecystectomy SOCIAL HISTORY Smoking status: No Alcohol use: Yes Drug use: Yes ED COURSE MEDICATIONS GIVEN IN EMERGENCY DEPARTMENT 15:51 07/17/25 Zofran IVP 4 mg 15:51 07/17/25 Pantoprazole (Protonix) IVP 40 mg IV SITE INFORMATION INTAKE OUTPUT REASSESMENT (most recent) 15:45 07/17/25. Ambulatory to room. Patient gowned. GENERAL / NEURO / PSYCH: Alert. Oriented X 4. Appears in no acute distress. RESPIRATORY: Respirations not labored. Breath sounds within normal limits. CVS: Normal sinus rhythm noted. Capillary refill less than 2 seconds. GI / : The patient has had nausea. Emesis noted. The patient has diarrhea (last BM 07/16). It has contained mucous. Abdomen soft. Abdominal tenderness present. Abdominal tenderness in the upper abdomen. Bowel sounds within normal limits. SKIN: Skin is warm and dry. VITAL SIGNS First Vitals Last Vitals Temp 15:33 07/17/25 97.9 F Temp 17:59 07/17/25 BP 15:33 07/17/25 117/68 BP 17:59 07/17/25 104/70 2 of 3 Visit Prasanna - MERCED TORREZ, : 2000, , HR 15:33 07/17/25 72 HR 17:59 07/17/25 68 RR 15:33 07/17/25 16 RR 17:59 07/17/25 O2 Sat 15:33 07/17/25 100% RA O2 Sat 17:59 07/17/25 Pain 15:33 07/17/25 7 Pain 17:59 07/17/25 ETCO2 15:33 07/17/25 ETCO2 17:59 07/17/25 GCS 15:33 07/17/25 GCS 17:59 07/17/25 RTS 15:33 07/17/25 RTS 17:59 07/17/25 PROCEDURES NURSING INTERVENTIONS LABS / STUDIES LABS / STUDIES ORDERED CBC w Diff CMP CT ABD/PEL w Cont Lipase Urinalysis Urine - HCG CLINICAL IMPRESSION EPIGASTRIC ABDOMINAL PAIN 3 of 3 Normal [facility] ED VITALS FLOW SHEETon 07-17 ED VITALS FLOW SHEET Vitals - MERCED TORREZ, : 2000, , Vital Sign Flow Sheet [address] [address] [id number] 07/17/2025 Patient: MERCED TORREZ Sex: Female : 2000 Age: 24y Measurements Wt: 52.2 kg, Ht/Johnny: 63.0 in, BMI: 20.37 Measured Renato Time BP MAP HR RR O2Sat ETCO2 Temp n GCS RTS 17:59 104/70 77 68 07/17/2025 17:59 68 99% 07/17/2025 17:58 16 3 07/17/2025 17:19 80 100% 07/17/2025 17:16 113/76 87 81 07/17/2025 17:14 69 100% 07/17/2025 17:09 68 100% 07/17/2025 17:04 66 100% 07/17/2025 1 of 2 Vitals - MERCED TORREZ, : 2000, , 17:01 110/73 79 64 07/17/2025 16:59 69 100% 07/17/2025 16:54 76 100% 07/17/2025 16:49 67 100% 07/17/2025 16:46 122/72 86 74 07/17/2025 16:44 78 99% 07/17/2025 16:39 85 100% 07/17/2025 16:19 72 99% 07/17/2025 16:16 113/80 86 63 07/17/2025 16:14 71 99% 07/17/2025 16:09 73 100% 07/17/2025 16:04 74 100% 07/17/2025 16:01 111/81 89 68 07/17/2025 15:59 72 99% 07/17/2025 15:33 117/68 84 72 16 100% 97.9 F 7 07/17/2025 RA 2 of 2 Normal [facility] Gastroenterology Visit Repor ton 07-17-2025 Gastroenterology Visit Report [facility]astroenterology [address] [place] [address] OFFICE VISIT Date of Service: 07/17/25 MR#: [id number] Acct: [id number] Name: MERCED TORREZ Rep #: [id number] : 2000 Provider: BHAVYA Silverman Age/Sex: 24/F [place] [facility] [place]: Signed Intake Vital Signs 09/30/24 08:18 Height 5 ft 3 in Intake Visit Reasons: ABDOMINAL ISSUES Chief Complaint: nausea and diarrhea Fibre Cement Moulder Required: No Accompanied by: Daughter Is patient in pain?: No Allergies No Known Allergies Allergy (Verified 07/17/25 08:33) Medications ???Medication ???Instructions ???Recorded ???Confirmed ???Type alprazolam 0.25 mg tablet 0.25 mg PO TID PRN anxiety 4 07/17/25 History ondansetron 4 mg disintegrating 4 mg PO Q8H #20 tabs 07/17/2506/27 Rx tablet pantoprazole 40 mg tablet,delayed 40 mg PO QDAY #30 tabs 07/17/25 1 Rx release PFSH Medical History History of prior with IUGR Anxiety Depression Surgical History S/P laparoscopic cholecystectomy Previous section Social History Smoking Status: Current every day smoker tobacco type: cigarettes alcohol intake: never HPI HPI Chief Complaint: nausea and diarrhea Details: MERCED TORREZ, is a 24 F who presents to the office today for follow-up. [facility] ED 1.04.19 with chest pain after being sick with vomiting, diarrhea, congestion and cough for two days. Work up unremarkable. GI cocktail with resolution of symptoms. BGI established 10.18.24 following ED visit. Pt has had new Gi issues over the past four months. She has daily nausea and vomiting a few times per week. This not associated with eating. She does use marijuana 3 times per day. She does not feel hungry and has been losing weight. She is also having diarrhea daily up to 7 times per day. She has not had any improvements in her symptoms since starting the omeprazole. Zofran has helped with her nausea. She is never having a formed stool. This has been on going for 4 months. She has been losing with a 10-15 lbs weight loss over this time. She denies any lifestyle, medication or diet changes around the time this started. She is s/p cholecystectomy in 2022. Increased omeprazole to 40 mg daily, encouraged marijuana cessation, Zofran as needed and stool testing. Gastric emptying study 11/22/2024: Abnormal Stool 10/30/2024: Elastase normal, Giardia negative enteric pathogen negative C. difficile canceled, calprotectin 106 OV 07/16/2025 patient continues to have daily nausea and intermittent vomiting. She is vomiting 1-2 times per week. She has no appetite and has lost about 5 pounds over the past few months. She has epigastric pain that she describes as heavy . Patient having sporadic bowel movements sometimes a few times per day and other times she will go for a few days. She discontinued omeprazole. Zofran was helpful for the nausea. She feels like symptoms may have started after her cholecystectomy. ROS Const Constitutional: Positive for fatigue, headache(s) and weight change (loss); No fever(s) ENT ENT: Positive for headache(s) and difficulty swallowing Gastro GI: Positive for abdominal pain, bloating, change in bowel habits, constipation, diarrhea, difficulty swallowing, nausea/dyspepsia and vomiting; No belching, change in stool character, coffee ground emesis, cramping, heartburn, feeling full early, excessive flatus, incontinent of stools, Vomiting blood/hematemesis, Blood in stool, loose stools, Black,tarry stools, pain with swallowing or other Musc Musculoskeletal: Positive for muscle weakness; No joint pain Skin Skin: No yellowing of the eye or itchy eyes Neuro Neurology: Positive for headache(s) Psych Psychiatric: No anxiety and No depression Endo Endocrine: Positive for fatigue and weight change (loss) Aller/Imm Allergy/Immunologic: No itchy eyes Sohail/Lymp Hematologic/Lymphatic: Positive for easy bruising; No easy bleeding Exam Const General: cooperative and comfortable Nutritional Appearance: average body habitus Orientation: alert HENMT Head: normal to inspection Ears: hearing grossly normal bilaterally Eyes General: appearance normal, both eyes and all related structures Neck Neck: normal visual inspection Chest Chest palpation inspection: normal inspection of the chest Resp Effort Inspection: normal respiratory effort GI Inspection: normal to inspection Assessment and Plan Assessment and Plan (1) Diarrhea: Status: Acute Plan: Flory is a 24-year-old female patient here today for follow-up regarding her nausea, vomiting and (more content not included)... Normal [facility] LIPASEon 07-17-2025 Lipase [Catalytic activity/Vol] 22.0 U/L Normal 15.0 - 78.0 [facility] Comment on above: Result Comment: *PLE ASE NOTE THAT RANGES FOR LIPASE HAVE CHANGED OF 09/23/23 DUE TO AN ASSAY UPDATE BY THE EXTRACTOR AND WRINGER OPERATOR.THE NEW ASSAY RANGE IS 6-250 U/L, WITH A REFERENCE RANGE OF 16-77 U/L. Performed By: #### [id number] #### [facility],[address] [place] [address] URINEon 07-17-2025 Beta HCG ( test) Ql (U) Negative Normal NEGATIVE [facility] Comment on above: Performed By: #### 2 [id number] #### [facility],[address] [place] [address] EXTERNAL QC DONE? YES Normal [facility] Comment on above: Result Comment: Very dilute urine specimens, as indicated by a low specific gravity, may not contain inside sales representative levels of hCG. If is still suspected, a first morning urine specimen should be collected 48 hours later and tested. Performed By: #### 2 [id number] #### [facility],[address] [place] [id number] INTERNAL QC PASS Normal [facility] Comment on above: Performed By: #### 2 [id number] #### [facility],[address] [place] [id number] URINALYSISon 07-17-2025 Amorphous NONE Normal [facility] Comment on above: Performed By: #### 2 [id number] #### [facility],[address] [place] [address] [id number] Bacteria TRACE Normal [facility] Comment on above: Performed By: #### 2 [id number] #### [facility],[address] [place] [address] Bilirubin Ql (U) Negative Normal NORMAL: NEGATIVE [facility] Comment on above: Performed By: #### 2 [id number] #### [facility],[address] [place] [phone] Casts NONE Normal [facility] Comment on above: Performed By: #### 2 [id number] #### [facility],[address] [place] [address] Clarity (U) clear Normal NORMAL: CLEAR [facility] Comment on above: Performed By: #### 2 [id number] #### [facility],[address] [place] [id number] Color (U) yellow Normal NORMAL: YELLOW [facility] Comment on above: Performed By: #### 2 [id number] #### [facility],[address] [place] [id number] Crystals LM Nom (Urine sed) NONE Normal [facility] Comment on above: Performed By: #### 2 [id number] #### [facility],[address] [place] [address] [id number] Epi Cells FEW Normal [facility] Comment on above: Performed By: #### 2 [id number] #### [facility],[address] [place] [address]78 Glucose Ql (U) NORM Normal NORMAL: NORMAL [facility] Comment on above: Performed By: #### 2 [id number] #### [facility],[address] [place] [address] 33057 Hemoglobin Ql (U) 25 Abnormal NORMAL: NEGATIVE [facility] Comment on above: Performed By: #### 2 [id number] #### [facility],[address] [place] [address] 59220 Ketone Negative Normal NORMAL: NEGATIVE [facility] Comment on above: Performed By: #### 2 47283 #### [facility],[address] [place] [address] 47439 Leukocytes Negative Normal NORMAL: NEGATIVE [facility] Comment on above: Performed By: #### 2 81783 #### [facility],[address] [place] [address] 98181 Mucous NONE Normal [facility] Comment on above: Performed By: #### 2 01663 #### [facility],[address] [place] [address] 97918 Nitrite Ql (U) Negative Normal NORMAL: NEGATIVE [facility] Comment on above: Performed By: #### 2 45874 #### [facility],[address] [place] [address] 88869 pH (U) 6 [pH] Normal NORMAL: 5.0-8.0 [facility] Comment on above: Performed By: #### 2 41846 #### [facility],[address] [place] [address] 35773 Protein Ql (U) Negative Normal NORMAL: NEGATIVE [facility] Comment on above: Performed By: #### 2 68072 #### [facility],[address] [place] [address] 06651 Rbc 0-5 Normal 0-3/hpf [facility] Comment on above: Performed By: #### 2 51511 #### [facility],[address] [place] [address] 82961 Sp [place] 1.020 Normal NORMAL: 1.010-1.030 [facility] Comment on above: Performed By: #### 2 80236 #### [facility],[address] [place] [address] Specimen Type R Normal [place] Comment on above: Performed By: #### 2 87410 #### [facility],[address] [place] [address] Urinalysis dipstick W Reflex Microscopic panel (U) SEE BELOW Normal [facility] Comment on above: Result Comment: MICR OSCOPIC Performed By: #### 2 49050 #### [facility],[address] [place] [address] Urobilinog NORM Normal NORMAL: NORMAL [facility] Comment on above: Performed By: #### 2 83663 #### [facility],[address] [place] [address] 40381 Wbc 1-5 Normal 0-5/hpf [facility] Comment on above: Performed By: #### 2 67228 #### [facility],[address] [place], [place] [address] Yeast NONE Normal [facility] Comment on above: Performed By: #### 2 00049 #### [facility],[address] [place] [address] 07283 INSULIN [CCL]on 06-28-2025 Insulin, Total 8.4 uU/mL Normal 2.6-24.9 [facility] Comment on above: Result Comment: [facility] [address] [place] [address] Lauro Bonilla III, M.D. [id number] Performed By: #### 2 94955 #### [facility],[address] [place] [address] 20143 HEMOGLOBIN A1C (POM)on 06-27 Glucose [Mass/Vol] 91.1 mg/dL High 0.0 - 0.0 [facility] Comment on above: Result Comment: BLDo HEMOGLOBIN A1C REFERENCE RANGESBLDo Suggested Diagnosis HbA1c(%) HbA1C (mmol/mol Diabetic >/=6.5 >/=48 Prediabetes 5.7 - 6.4 39 - 47 Normal <5.7 <39 Performed By: #### 2 81749 #### [facility],[address] [place] [address] 00479 HbA1c (Bld) [Mass fraction] 4.8 % Normal 0.0 - 6.5 [facility] Comment on above: Performed By: #### 2 75367 #### [facility],[address] [place] [address] 45514 Insulin SerPl-aCncon 025 Insulin Qn 8.4 uU/mL Normal 2.6-24.9 [facility] Comment on above: Order Comment: Speci men Type: BLOOD SPECIMEN Ordering Facility: [facility] Address: [address] [place] [address] Performed By: #### 2 0448-7 #### [facility] CLIA [id number] [address] [place] [address] [place] CBC + DIFFon 06-17-2025 Baso # 0.02 x10EE3/UL Normal 0.00 - 0.10 [facility] Comment on above: Performed By: #### 2 35323 #### [facility],[address] [place] [address] 25375 Basophils/100 WBC (Bld) 0.3 % Normal 0.0 - 2.0 [facility] Comment on above: Performed By: #### 2 13346 #### [facility],[address] [place] [address] 36033 CBC + DIFF Normal [facility] Comment on above: Result Comment: CBC- COMPLETE BLOOD COUNT Performed By: #### 2 49447 #### [place] [address] EO # 0.05 x10EE3/UL Normal 0.00 - 0.50 [facility] Comment on above: Performed By: #### 2 36603 #### [facility],[address] [place] [address] Eosinophils/100 WBC (Bld) 0.8 % Normal 0.0 - 7.0 [facility] Comment on above: Performed By: #### 2 94022 #### [place] [address] Erythrocyte distribution width (RBC) [Ratio] 12.6 % Normal 12.0 - 15.6 [facility] Comment on above: Performed By: #### 2 40473 #### [place] [address] Hematocrit (Bld) [Volume fraction] 36.2 % Normal 34.0 - 46.0 [facility] Comment on above: Performed By: #### 2 08412 #### [place] [address] Hemoglobin (Bld) [Mass/Vol] 12.6 g/dL Normal 12.0 - 16.0 [facility] Comment on above: Performed By: #### 2 22035 #### [place] [address] Lymph # 1.52 x10EE3/UL Normal 0.80 - 2.80 [facility] Comment on above: Performed By: #### 2 94400 #### [place] [address] Lymphocytes/100 WBC (Bld) 25.4 % Normal 20.0 - 45.0 [facility] Comment on above: Performed By: #### 2 84016 #### [place] [address] MANUAL DIFF N/A Normal [facility] Comment on above: Performed By: #### 2 81621 #### [facility],[address] [place] [address] MCH (RBC) [Entitic mass] 32 pg Normal 27 - 33 [facility] Comment on above: Performed By: #### 2 29920 #### [facility],[address] [place] [address] MCHC 35 X10 3 Normal 32 - 36 [facility] Comment on above: Performed By: #### 2 36398 #### [facility],[address] [place] [address] MCV (RBC) [Entitic vol] 91 fL Normal 80 - [address] [facility] Comment on above: Performed By: #### 2 72463 #### [facility],[address] [place] [address] Woodruff # 0.32 x10EE3/UL Normal 0.20 - 1.00 [facility] Comment on above: Performed By: #### 2 29384 #### [facility],[address] [place] [address] MONOS % 5.3 % Normal 0.0 - 10.0 [facility] Comment on above: Performed By: #### 2 87352 #### [facility],[address] [place] [address] Morphology Syed (Bld) [Interp] N/A Normal [facility] Comment on above: Performed By: #### 2 87723 #### [facility],[address] [place] [address] Neut # 4.08 x10EE3/UL Normal 1.50 - 7.10 [facility] Comment on above: Performed By: #### 2 09146 #### [facility],[address] [place] [address] Neutrophils/100 WBC (Bld) 68.1 % Normal 46.0 - 76.0 [facility] Comment on above: Performed By: #### 2 68691 #### [facility],[address] [place] [address] 65554 PLATELET 322 x10EE3/UL Normal 150 - 450 [place] Comment on above: Performed By: #### 2 84502 #### [facility],[address] [place] [address] 27980 Platelet mean volume (Bld) [Entitic vol] 8.1 fL Normal 6.6 - 10.5 [facility] Comment on above: Result Comment: AUTO MATED DIFFERENTIAL Performed By: #### 2 44709 #### [address] [address] RBC 4.00 x 10EE6/UL Low 4.10 - 5.30 [facility] Comment on above: Performed By: #### 2 26719 #### [facility],[address] [place] [address] 28132 WBC 6.0 x 10EE3/UL Normal 4.5 - 10.8 [facility] Comment on above: Performed By: #### 2 44070 #### [facility],[address] [place] [address] 63239 CMP with eGFRon 06-17-2025 AGE 24 years Normal [facility] Comment on above: Performed By: #### 2 12149 #### [facility],[address] [place] [address] 19159 Albumin [Mass/Vol] 4.4 g/dL Normal 3.4 - 5.0 [facility] Comment on above: Performed By: #### 2 27007 #### [address] [address] Albumin/Globulin [Mass ratio] 1.7 {ratio} High 0.9 - 1.6 [facility] Comment on above: Performed By: #### 2 31786 #### [facility],[address] [place] [address] 41191 ALK PHOS 54 U/L Normal 46 - 116 [facility] Comment on above: Performed By: #### 2 19804 #### [facility],[address] [place] [address] 83483 ALT [Catalytic activity/Vol] 16 U/L Normal 16 - 63 [facility] Comment on above: Performed By: #### 2 62877 #### [facility],[address] [place] [address] 88506 Anion gap [Moles/Vol] 9 mmol/L Low 10 - 20 [facility] Comment on above: Performed By: #### 2 92779 #### [facility],[address] [place], [place] [address] AST [Catalytic activity/Vol] 13 U/L Normal 13 - 39 [facility] Comment on above: Performed By: #### 2 27139 #### [facility],[address] [place] [address] 98436 B/C RATIO 16 ratio Normal 0 - 30 [facility] Comment on above: Performed By: #### 2 49203 #### [facility],[address] [place] [address] 26953 Bilirubin [Mass/Vol] 0.7 mg/dL Normal 0.2 - 1.0 [facility] Comment on above: Performed By: #### 2 23671 #### [facility],[address] [place] [address] 70191 Calcium [Mass/Vol] 9.0 mg/dL Normal 8.5 - 10.1 [facility] Comment on above: Performed By: #### 2 98009 #### [facility],[address] [place] [address] 51488 Chloride [Moles/Vol] 101 mmol/L Normal 98 - 107 [facility] Comment on above: Performed By: #### 2 65170 #### [facility],[address] [place], [place] [address] CMP with eGFR Normal [place] Comment on above: Result Comment: COMP REHENSIVE METABOLIC PANEL Performed By: #### 2 01179 #### [facility],[address] [place] [address] CO2 [Moles/Vol] 30.2 mmol/L Normal 21.0 - 32.0 [facility] Comment on above: Performed By: #### 2 62303 #### [facility],[address] [place] [address] Creatinine [Mass/Vol] 0.82 mg/dL Normal 0.55 - 1.02 [facility] Comment on above: Performed By: #### 2 59527 #### [facility],[address] [place] [address] GFR/1.73 sq M.predicted among non-blacks MDRD (S/P/Bld) [Vol rate/Area] mL/min/{1.73_m2} Normal 60 - 999 [facility] Comment on above: Performed By: #### 2 17122 #### [facility],[address] [place] [address] Result Comment: ACCO RDING TO THE NATIONAL KIDNEY DISEASE EDUCATION PROGRAM(NKDE), A NORMAL eGFR IS A VALUE GREATER THAN OR EQUAL TO 60 ML/MIN/1.73 SQ METERS. CHRONIC KIDNEY DISEASE: <60mL/MIN/1.73 SQ METERS KIDNEY FAILURE: <15mL/MIN/1.73 SQ METERS THIS TEST SHOULD ONLY BE USED FOR PATIENTS 18 YEARS OF AGE AND OLDER. Globulin (S) [Mass/Vol] 2.6 g/dL Normal 1.5 - 3.8 [facility] Comment on above: Performed By: #### 2 79614 #### [facility],[address] [place], [place] [address] Glucose [Mass/Vol] 123 mg/dL High 74 - 106 [facility] Comment on above: Performed By: #### 2 22771 #### [facility],[address] [place] [address] 34953 Potassium [Moles/Vol] 3.6 mmol/L Normal 3.5 - 5.1 [facility] Comment on above: Performed By: #### 2 63987 #### [facility],[address] [place] [address] 51286 Protein [Mass/Vol] 7.0 g/dL Normal 6.4 - 8.2 [facility] Comment on above: Performed By: #### 2 94671 #### [facility],[address] [place] [address] 53243 Sodium [Moles/Vol] 137 mmol/L Normal 136 - 145 [facility] Comment on above: Performed By: #### 2 77511 #### [facility],[address] [place], [place] [address] Urea nitrogen [Mass/Vol] 13 mg/dL Normal 7 - 18 [facility] Comment on above: Performed By: #### 2 99912 #### [facility],[address] [place] [address] 34984 IRON AND TIBCon 06-17-2025 %SATURATION 45 % Normal [facility] Comment on above: Performed By: #### 2 11510 #### [facility],[address] [place] [address] 59085 Iron [Mass/Vol] 109 ug/dL Normal 50 - 170 [facility] Comment on above: Performed By: #### 2 58961 #### [facility],[address] [place] [address] 36401 TIBC 242 ug/dl Low 250 - 450 [facility] Comment on above: Performed By: #### 2 07432 #### [facility],[address] [place] [address] 27604 UIBC 133 ug/dL Low 155 - 355 [facility] Comment on above: Performed By: #### 2 90220 #### [facility],[address] [place] [address] 42146 LIPID PROFILEon 06-17-2025 Cholesterol [Mass/Vol] 147 mg/dL Normal 0 - 240 [facility] Comment on above: Performed By: #### 2 92028 #### [facility],[address] [place] [address] 11994 Cholesterol in HDL [Mass/Vol] 60 mg/dL Normal 40 - 60 [facility] Comment on above: Performed By: #### 2 77627 #### [facility],[address] [place] [address] 18010 Cholesterol in LDL [Mass/Vol] 79 mg/dL Normal 0 - 129 [facility] Comment on above: Performed By: #### 2 21892 #### [facility],[address] [place] [address] 79203 Cholesterol.total/Altagracia sterol in HDL [Mass ratio] 2.5 {ratio} Normal 0.0 - 5.0 [facility] Comment on above: Performed By: #### 2 35630 #### [facility],[address] [place] [address] 15452 Lipid 1996 panel Normal [facility] Comment on above: Result Comment: LIPI D PROFILE Performed By: #### 2 71073 #### [facility],[address] [place] [address] 78643 Triglyceride [Mass/Vol] 41 mg/dL Normal 0 - 150 [facility] Comment on above: Performed By: #### 2 39059 #### [facility],[address] [place] [address] 39652 Gastric Emptying Studyon Gastric Emptying Study [facility] Imaging Services [address] [place] [address] Gastric Emptying Study MR#: [id number] Acct: [id number] Name: MERCED TORREZ Rep #: [id number] : 2000 F 24 From: Rocael burns MD PCP: Janine Castillo PA-C Status: REG CLI Study: Gastric Emptying Study Date of Exam: 11/22/24 Exam# [id number] Ordering Dr: Sandra Meyer PROCEDURE: GASTRIC EMPTYING STUDY REASON FOR EXAM: Nausea. Early satiety. TECHNIQUE: The patient ingested a mixture of sulfur colloid in oatmeal. Imaging was obtained. RADIOPHARMACEUTICAL: 1.1 mCi of technetium labeled sulfur colloid. COMPARISON: None. FINDINGS: Half of the ingested radiopharmaceutical exited the stomach at 90 minutes. This is abnormal. NM/Gastric Emptying Study IMPRESSION: Abnormal gastric emptying study. Reading Location: [id number] CC: LEIGHANN Castillo; BHAVYA [place] Space Technologist: Signed Normal [facility] Calprotectin, Stoolon [address] 106 ug/g Normal 0-120 [facility] Comment on above: Result Comment: Conc entration Interpretation Follow-Up < 5 - 50 ug/g Normal None >50 -120 ug/g Borderline Re-evaluate in 4-6 weeks >120 ug/g Abnormal Repeat as clinically indicated Performed at: [address] [id number] Tool Design Checker: Shawn Eason MD, Phone: [phone] Performed By: #### L 7400.3300, L7000.0750, L7000.0700, M100.636 #### [facility] [address] [place], [place] [address] [place], [address] Giardia Lamblia, Stool EIAon 10-29-2024 Giardia Stool Negative Normal Negative [facility] Comment on above: Result Comment: Perf ormed at: [address] [id number] Tool Design Checker: Shawn Eason MD, Phone: [phone] Performed at: [address] [id number] Tool Design Checker: Roc Dean PhD, Phone: [phone] Performed By: #### L 7400.3300, L7000.0750, L7000.0700, M100.637 #### [facility] [address] [place], [address] L7000.0750on 10-29-2024 P ELASTASE,FECA > 800 Normal >200 [facility] Comment on above: Result Comment: Resu lt Units: ug Elast./g Severe Pancreatic Insufficiency: <100 Moderate Pancreatic Insufficiency: 100 - 200 Normal: >200 Performed By: #### L 7400.3300, L7000.0750, L7000.0700, M100.637 #### [facility] [address] [facility] [place], [address] ENTERIC PATHOGEN PANEL STOOL on 10-26-2024 EP PANEL Not detected for Campylobacter group, Salmonella species, Shigella species, Vibrio Group, Yersinia enterocolitica, EHEC (Shiga Toxin 1, Shiga Toxin 2), Norovirus Gl/Gll, and Rotavirus A. Other common stool pathogens are not detected on this panel include: Aeromonas/Plesiomonas or parasites. Order testing for these organisms separately if suspected. This is an amplified DNA test which makes it both specific and sensitive. Normal Reference Range = Not Detected Nucleic acid amplification test method CAMPYLOBACTER Not Detected Norovirus Not Detected Rotavirus Not Detected Salmonella Not Detected Shiga Toxin Not Detected Shigella sp. Not Detected VIBRIO Not Detected Yersinia Not Detected Normal [facility] Comment on above: Performed By: #### L 7400.3300, L7000.0750, L7000.0700, M100.637 #### [facility] [address] [place], [address] Calprotectin stoolOrdered By : Sandra Meyer on 10-25-2024 Stool Calprotectin 106 ug/g 0-120 [facility] Comment on above: Concentration Interp retation Follow-Up< 5 - 50 ug/g Normal None>50 -120 ug/g Borderline Re-evaluate in 4-6 weeks >120 ug/g Abnormal Repeat as clinically indicatedPerformed at: [facility] Lab[address] [id number] Director: Shawn Eason MD, Phone: [phone] Elastase.pancreatic (Stl) [M ass/Mass]Ordered By: Sandra Meyer on 10-25-2024 Stool Pancreatic Elastase > 800 >200 [facility] Comment on above: Result Units: ug Lucretia st./g Severe Pancreatic Insufficiency: <100 Moderate Pancreatic Insufficiency: 100 - 200 Normal: >200 G. lamblia Ag IA Ql (Stl)Ord ered By: Sandra Meyer on 10-25-2024 Stool Giardia Antigen Negative Negative [facility] Comment on above: Performed at: Email Data Source - [facility] [address] [id number] Director: Shawn Eason MD, Phone: [phone] at: [facility] [address] [id number] Director: Roc Dean PhD, Phone: [phone] Stool enteric pathogen panel by probe and target amplification methodOrdered By: Sandra Meyer on 10-25-2024 Enteric Bacteriology [facility] Gastroenterology Visit Repor ton 10-18-2024 Gastroenterology Visit Report [facility] [address] [place] [address] OFFICE VISIT Date of Service: 10/18/24 MR#: [id number] Acct: [id number] Name: MERCED ECHEVARRIA Rep #: [id number] : 2000 Provider: BHAVYA Silverman Age/Sex: 24/F [facility]: Signed Intake Vital Signs 09/30/24 08:18 Height 5 ft 3 in Intake Visit Reasons: Abdominal complaints Chief Complaint: nausea and diarrhea Allergies No Known Allergies Allergy (Verified 08/16/24 13:12) Patient : No Have you fallen in the past year?: No Nurse's Note: OV 10.18.24 Pt here to establish care with [facility]. Pt states she has had diarrhea every day for months, abdominal pain, nausea and vomiting. Reports about 10lb weight loss in the past two months. Denies blood in stools. Reports she does drink alcohol and smokes marijuana a few times a week. Takes omeprazole and ondansetron. [facility] Medical History History of prior with [facility] Anxiety Depression Surgical History S/P laparoscopic cholecystectomy Previous section Social History Smoking Status: Current every day smoker tobacco type: cigarettes alcohol intake: never HPI HPI Chief Complaint: nausea and diarrhea Details: MERCED ECHEVARRIA, is a 24 F who presents to the office today for establishment with [facility]. [facility] ED .04.19 with chest pain after being sick with vomiting, diarrhea, congestion and cough for two days. Work up unremarkable. GI cocktail with resolution of symptoms. [facility] established 10.18.24 following ED visit. Pt has had new Gi issues over the past four months. She has daily nausea and vomiting a few times per week. This not associated with eating. She does use marijuana 3 times per day. She does not feel hungry and has been losing weight. She is also having diarrhea daily up to 7 times per day. She has not had any improvements in her symptoms since starting the omeprazole. Zofran has helped with her nausea. She is never having a formed stool. This has been on going for 4 months. She has been losing with a 10-15 lbs weight loss over this time. She denies any lifestyle, medication or diet changes around the time this started. She is s/p cholecystectomy in 2022. ROS Const Constitutional: Positive for fatigue, headache(s) and weight change; No fever(s) ENT ENT: Positive for headache(s) and difficulty swallowing Gastro GI: Positive for abdominal pain, change in bowel habits, diarrhea, heartburn, difficulty swallowing, nausea/dyspepsia and vomiting; No belching, bloating, change in stool character, coffee ground emesis, constipation, cramping, feeling full early, excessive flatus, incontinent of stools, Blood in stool, loose stools, Black,tarry stools, pain with swallowing or other Musc Musculoskeletal: Positive for back pain; No joint pain Skin Skin: Positive for dry skin and itchy eyes; No yellowing of the eye Neuro Neurology: Positive for headache(s) Psych Psychiatric: Positive for anxiety and No depression Endo Endocrine: Positive for fatigue and weight change Aller/Imm Allergy/Immunologic: Positive for itchy eyes Sohail/Lymp Hematologic/Lymphatic: Positive for easy bruising; No easy bleeding Exam Const General: cooperative and comfortable Nutritional Appearance: average body habitus and well nourished [facility] Head: normal to inspection Ears: hearing grossly normal bilaterally Nose: external nose normal Face and sinus: normal facial exam Mouth: oral mucosae normal Throat: posterior oropharynx normal Eyes General: appearance normal, both eyes and all related structures Neck Neck: normal visual inspection Chest Chest palpation inspection: normal inspection of the chest and normal palpation of entire chest wall Resp Effort Inspection: normal respiratory effort Auscultation: Bilateral: Clear to Auscultation Cardio Palpation: normal PMI Rate: regular rate Rhythm: regular rhythm GI Inspection: normal to inspection Auscultation: normal bowel sounds Percussion: normal to percussion Palpation: no hepatosplenomegaly Skin General: no rashes or lesions noted Neuro General: patient alert Extrem General: normal to inspection Psych Affect: normal affect Assessment and Plan Assessment and Plan (1) Abdominal symptoms: (2) Nausea vomiting: Status: Acute Plan: This is a 24 yo female pt here today for complaints of n/v and diarrhea over the past 4 months. Her nausea is daily and not triggered by PO intake. She does use marijuana around three times per week. I encouraged cessation of this as it can lead to hyperemesis syndrome. Will increase omeprazole to 40 mg daily. (more content not included)... Normal [facility] 12 Lead EKGon 09-30-2024 12 Lead EKG [facility] Cardiovascular Services [address] [place] [address] 12 Lead EKG 09/30/24 0830 MR#: [id number] Acct: [id number] Name: MERCED ECHEVARRIA Rep #: [id number] : 2000 24 From: Abdoul Bautista MD Attending Dr: Status: DEP ER Ordering Dr: Tonia Hernandez DO Date: 09/30/24 Location: ED Sex: F C Admitted: Test Reason : CP Blood Pressure : */* mmHG Vent. Rate : 81 BPM Atrial Rate : 81 BPM P-R Int : 144 ms QRS Dur : 68 ms QT Int : 378 ms P-R-T Axes : 76 75 61 degrees QTcB Int : 439 ms Normal sinus rhythm with sinus arrhythmia Normal ECG Confirmed by Abdoul Bautista ([id number]), television news video editor ARCADIO MANZANO ([id number]) on 10/01/2024 9:54:06 AM Referred By: CG Confirmed By: Abdoul Bautista 10/01/24 0954 Date Abdoul Bautista MD CC: LEIGHANN Castillo; Dr. Tonia Hernandez, DO Signed Normal [facility] Absolute neutrophil countOrd ered By: Tonia Hernandez on 09-30-2024 Neutrophils (Bld) [#/Vol] 11.6 10*3/uL High 2.0-7.7 [facility] Basic Metabolic Profile (BMP )on 09-30-2024 BUN/CRE 12.6 RATIO Normal 10-20 [facility] Comment on above: Order Comment: 1 Y Performed By: #### L 501.5425, L501.2450, L500.3400, L100.0100, L500.2500 #### [facility] [address] [place], [address] CA,Total 9.3 mg/dL Normal 8.5-10.1 [facility] Comment on above: Order Comment: 1 Y Performed By: #### L 501.5425, L501.2450, L500.3400, L100.0100, L500.2500 #### [facility] [address] [place], [address] Chloride [Moles/Vol] 108 mmol/L High 98-107 [facility] Comment on above: Order Comment: 1 Y Performed By: #### L 501.5425, L501.2450, L500.3400, L100.0100, L500.2500 #### [facility] [address] [place], [address] CO2 [Moles/Vol] 23.0 mmol/L Normal 21.0-32.0 [facility] Comment on above: Order Comment: 1 Y Performed By: #### L 501.5425, L501.2450, L500.3400, L100.0100, L500.2500 #### [facility] [address] [place], [address] Creatinine [Mass/Vol] 0.87 mg/dL Normal 0.55-1.02 [facility] Comment on above: Order Comment: 1 Y Result Comment: The validity of the calculated GFR GFRAA in patients over 70 years has not been determined. Clinical correlation is essential. Performed By: #### L 501.5425, L501.2450, L500.3400, L100.0100, L500.2500 #### [facility] [address] [place], [address] ECRCL 81.06 ml/min Normal [facility] Comment on above: Order Comment: 1 Y Performed By: #### L 501.5425, L501.2450, L500.3400, L100.0100, L500.2500 #### [facility] [address] [place], [address] EST GFR - AA 101 mL/min Normal >60 [facility] Comment on above: Order Comment: 1 Y Result Comment: Afri can Niuean GFR Calc Performed By: #### L 501.5425, L501.2450, L500.3400, L100.0100, L500.2500 #### [facility] [address] [place], [address] GAP 8 Normal 5-15 [facility] Comment on above: Order Comment: 1 Y Performed By: #### L 501.5425, L501.2450, L500.3400, L100.0100, L500.2500 #### [facility] [address] [place], [address] GFR/1.73 sq M.predicted among non-blacks MDRD (S/P/Bld) [Vol rate/Area] 83 mL/min/{1.73_m2} Normal >60 [facility] Comment on above: Order Comment: 1 Y Result Comment: Non- GFR Calc Performed By: #### L 501.5425, L501.2450, L500.3400, L100.0100, L500.2500 #### [facility] [address] [place], [address] Glucose [Mass/Vol] 117 mg/dL High 74-106 [facility] Comment on above: Order Comment: 1 Y Result Comment: Fast ing Glucose result from 100 to 125 mg/dL suggests IMPAIRED HOMEOSTASIS per A.D.A. criteria. Performed By: #### L 501.5425, L501.2450, L500.3400, L100.0100, L500.2500 #### [facility] [address] [place], [address] Potassium [Moles/Vol] 3.7 mmol/L Normal 3.5-5.1 [facility] Comment on above: Order Comment: 1 Y Performed By: #### L 501.5425, L501.2450, L500.3400, L100.0100, L500.2500 #### [facility] [address] [place], [address] Sodium [Moles/Vol] 138 mmol/L Normal 136-145 [facility] Comment on above: Order Comment: 1 Y Performed By: #### L 501.5425, L501.2450, L500.3400, L100.0100, L500.2500 #### [facility] [address] [place], [address] Urea nitrogen [Mass/Vol] 11 mg/dL Normal 7-18 [facility] Comment on above: Order Comment: 1 Y Performed By: #### L 501.5425, L501.2450, L500.3400, L100.0100, L500.2500 #### [facility] [address] [place], [address] Basophil percentageOrdered B y: Tonia Hernandez on 09-30-2024 Basophils/100 WBC (Bld) 0.2 % 0-1 [facility] Bilirubin Test strip Ql (U)O rdered By: Tonia Hernandez on 09-30-2024 Bilirubin Ql (U) Negative Negative [facility] Bilirubin directOrdered By: Tonia Hernandez on 09-30-2024 Bilirubin.direct [Mass/Vol] 0.14 mg/dL 0.00-0.30 [facility] Bilirubin, totalOrdered By: Tonia Hernandez on 09-30-2024 Bilirubin [Mass/Vol] 0.50 mg/dL 0.20-1.00 [facility] Comment on above: For patients on eltr ombopag therapy, use of Dimension [place] TBIL is not recommended. Blood urea nitrogen (BUN)/cr eatinine ratioOrdered By: Tonia Hernandez on 09-30-2024 Urea nitrogen/Creatinine [Mass ratio] 12.6 mg/mg 10-20 [facility] CBC W/Diff, Automatedon Absolute Lymph 3.16 X10 3/uL Normal 0.83-4.51 [facility] Comment on above: Performed By: #### L 501.5425, L501.2450, L500.3400, L100.0100, L500.2500 ####[facility] [address] [place], [address] Absolute Neut 11.6 X10 3/uL High 2.0-7.7 [facility] Comment on above: Performed By: #### L 501.5425, L501.2450, L500.3400, L100.0100, L500.2500 ####[facility] [address] [place], [address] Basophils/100 WBC (Bld) 0.2 % Normal 0-1 [facility] Comment on above: Performed By: #### L 501.5425, L501.2450, L500.3400, L100.0100, L500.2500 ####[facility] [address] [place], [address] Eosinophils/100 WBC (Bld) 0.9 % Normal 0-5 [facility] Comment on above: Performed By: #### L 501.5425, L501.2450, L500.3400, L100.0100, L500.2500 ####[facility] [address] [place], [address] Erythrocyte distribution width (RBC) [Ratio] 12.0 % Normal 11.6-14.6 [facility] Comment on above: Performed By: #### L 501.5425, L501.2450, L500.3400, L100.0100, L500.2500 ####[facility] [address] [place], [address] Hematocrit (Bld) [Volume fraction] 39.9 % Normal 37-47 [facility] Comment on above: Performed By: #### L 501.5425, L501.2450, L500.3400, L100.0100, L500.2500 ####[facility] [address] [place], [address] Hemoglobin (Bld) [Mass/Vol] 13.7 g/dL Normal 12.0-15.0 [facility] Comment on above: Performed By: #### L 501.5425, L501.2450, L500.3400, L100.0100, L500.2500 ####[facility] [address] [place], [address] IG% 0.300 Normal 0.0-0.9 [facility] Comment on above: Result Comment: IG% - Immature Granulocytes (promyelocytes, myelocytes and metamyelocytes) > 1% indicates that a LEFT SHIFT is Present. Performed By: #### L 501.5425, L501.2450, L500.3400, L100.0100, L500.2500 ####[facility] [address] [place], [address] Lymphocytes/100 WBC (Bld) 19.7 % Normal 19-41 [facility] Comment on above: Performed By: #### L 501.5425, L501.2450, L500.3400, L100.0100, L500.2500 ####[facility] [address] [place], [address] MCH (RBC) [Entitic mass] 31.0 pg Normal 27.0-32.0 [facility] Comment on above: Performed By: #### L 501.5425, L501.2450, L500.3400, L100.0100, L500.2500 ####[facility] [address] [place], [address] MCHC (RBC) [Mass/Vol] 34.3 g/dL Normal 32-36 [facility] Comment on above: Performed By: #### L 501.5425, L501.2450, L500.3400, L100.0100, L500.2500 ####[facility] [address] [place], [address] MCV (RBC) [Entitic vol] 90.3 fL Normal 81-99 [facility] Comment on above: Performed By: #### L 501.5425, L501.2450, L500.3400, L100.0100, L500.2500 ####[facility] [address] [place], [address] Monocytes/100 WBC (Bld) 6.7 % Normal 0-10 [facility] Comment on above: Performed By: #### L 501.5425, L501.2450, L500.3400, L100.0100, L500.2500 ####[facility] [address] [place], [address] Neutrophils/100 WBC (Bld) 72.2 % High 47-70 [facility] Comment on above: Performed By: #### L 501.5425, L501.2450, L500.3400, L100.0100, L500.2500 ####[facility] [address] [place], [address] Nucleated RBC (Bld) [#/Vol] 0 10*3/uL Normal 0-5 [facility] Comment on above: Performed By: #### L 501.5425, L501.2450, L500.3400, L100.0100, L500.2500 ####[facility] [address] [place], [address] Platelet mean volume (Bld) [Entitic vol] 9.6 fL Normal 6.2-12.0 [facility] Comment on above: Performed By: #### L 501.5425, L501.2450, L500.3400, L100.0100, L500.2500 ####[facility] [address] [place], [address] Platelets (Bld) [#/Vol] 440 10*3/uL Normal 150-450 [facility] Comment on above: Performed By: #### L 501.5425, L501.2450, L500.3400, L100.0100, L500.2500 ####[facility] [address] [place], [address] RBC (Bld) [#/Vol] 4.42 10*6/uL Normal 4.2-5.4 [facility] Comment on above: Performed By: #### L 501.5425, L501.2450, L500.3400, L100.0100, L500.2500 ####[facility] [address] [place], [address] RDW SD 39.7 fl Normal 35.1-43.9 [facility] Comment on above: Performed By: #### L 501.5425, L501.2450, L500.3400, L100.0100, L500.2500 ####[facility] [address] [place], [address] WBC (Bld) [#/Vol] 16.1 10*3/uL High 4.4-11.0 [facility] Comment on above: Performed By: #### L 501.5425, L501.2450, L500.3400, L100.0100, L500.2500 ####[facility] [address] [facility] [place], [address] Carbon dioxide measurementOr dered By: Tonia Hernandez on 09-30-2024 CO2 [Moles/Vol] 23.0 mmol/L 21.0-32.0 [facility] Chest PA and Lateralon 09-30 Chest PA and Lateral [facility] Imaging Services [address] [place] [address] Chest PA and Lateral MR#: [id number] Acct: [id number] Name: MERCED ECHEVARRIA Rep #: [id number] : 2000 F 24 From: Jose Cantor MD PCP: Janine Castillo PA-C Status: [facility] ER Study: Chest PA and Lateral Date of Exam: 09/30/24 Exam# [id number] Ordering Dr: Tonia Hernandez DO [id number] STUDY: X-RAY CHEST REASON FOR EXAM: Female, 24 years old. Atypical chest pain TECHNIQUE: PA and lateral views of the chest. COMPARISON: 2017 FINDINGS: EKG leads overlie the chest The lungs are clear and expanded. There is no demonstrated pleural abnormality. Normal size heart. Normal mediastinum and patti. Normal visualized pulmonary arteries. Normal visualized aortic arch and descending thoracic aorta. Normal visualized thoracic spine. Normal visualized ribs, clavicles, and shoulders. There is no demonstrated abnormality of the visualized soft tissue structures of the upper abdomen. RAD/Chest PA and Lateral IMPRESSION: Normal x-ray examination of the chest. Electronically Signed: Damian Cantor MD at 9:50 EST , CC: LEIGHANN Castillo; Dr. Tonia Hernandez DO Space Technologist: Signed Normal [facility] Chloride measurementOrdered By: Tonia Hernandez on 09-30-2024 Chloride [Moles/Vol] 108 mmol/L High 98-107 [facility] Emergency Department Summary on 09-30-2024 Emergency Department Summary [facility] Medical Records Department [address] [place] [address] Emergency Department Summary 09/30/24 MR#: [id number] Acct: [id number] Name: MERCED ECHEVARRIA Rep #: [id number] : 2000 24 From: Tonia Hernandez DO PCP: Janine Castillo PA-C Status:REG ER Location: ED HPI History of Present Illness Chief Complaint: Shortness of Breath Informant: patient Narrative Narrative: Patient is a 24-year-old female with history of prior cholecystectomy, anxiety and depression presenting with chest pain. Patient states she has been sick for the past 2 days or so. Started with vomiting and diarrhea 2 days ago and yesterday she had decreased appetite, congestion and cough. No reported fevers but states she intermittently still hot and cold. This morning after she woke up she noticed as some burning chest pain. She states it is in the center of her chest and radiates down to her epigastric region. She has associated shortness of breath and did have a couple episodes of vomiting. She denies any coughing today. She did take 600 mg of Advil for her symptoms. She denies any associated abdominal pain except for discomfort in her epigastric region. She denies any urinary symptoms. She denies any swelling of her legs or history of DVT/PE. She is not on any estrogen or hormonal medication. Denies any sick contacts initially but then states that her daughters had some mild cold symptoms. No other complaints or concerns reported at this time. Denies any history of any heart problems that she is aware of. [facility] Medical History History of prior with IUGR Anxiety Depression Home Medications ???Medication ???Instructions ???Recorded ???Last Taken ???Type alprazolam 0.25 mg tablet 0.25 mg PO TID PRN anxiety 07/25/24 Unknown History omeprazole 20 mg capsule,delayed 20 mg PO DAILY #30 CAPSULES 09/30/24 Unknown Rx release ondansetron 4 mg disintegrating 4 mg PO Q8H PRN PRN Nausea #10 tabs 09/30/24 Unknown Rx tablet Allergy/AdvReac Type Severity Reaction Status Date / Time No Known Allergies Allergy Verified 08/16/24 13:12 Surgical History S/P laparoscopic cholecystectomy Previous section Social History Smoking Status: Current every day smoker tobacco type: cigarettes alcohol intake: never ROS ROS ED Constitutional Constitutional ED: Reports chills; Denies fever(s) Eyes Eyes: Denies change in vision ENT ENT ED: Reports other Details: Mild nasal congestion ; Denies ear pain or sore throat Cardiovascular Cardiovascular: Reports chest pain Respiratory/Chest Respiratory/Chest: Reports dyspnea; Denies cough Gastrointestinal Gastrointestinal: Reports abdominal pain, nausea and vomiting; Denies constipation or diarrhea Genitourinary Genitourinary ED: Denies dysuria or urinary frequency Musculoskeletal Musculoskeletal: Denies arthralgias or myalgias Integumentary Denies other Neurologic Neurologic: Reports headache(s) and weakness Psychiatric Psychiatric: Reports anxiety EXAM Physical Exam Const Vital Signs: 09/30/24 08:18 09/30/24 08:31 09/30/24 08:31 Temperature 98.7 F 98.1 F Temperature Source Oral Oral Pulse Rate 99 72 Respiratory Rate 18 15 Respiratory Effort Short of Breath Respiratory Depth Normal Respiratory Pattern Normal Blood Pressure 121/86 H 119/89 H Blood Pressure Mean 97 99 Pulse Ox 99 100 Oxygen Delivery Method Room Air Room Air Room Air 09/30/24 09:17 09/30/24 10:00 09/30/24 11:00 Temperature Temperature Source Pulse Rate 72 87 75 Respiratory Rate 16 18 14 Respiratory Effort Respiratory Depth Respiratory Pattern Blood Pressure 113/84 H 110/85 H 102/65 Blood Pressure Mean 93 93 77 Pulse Ox 99 97 97 Oxygen Delivery Method Room Air Room Air 09/30/24 12:00 09/30/24 13:00 09/30/24 14:07 Temperature Temperature Source Pulse Rate 81 82 69 Respiratory Rate 18 17 16 Respiratory Effort Respiratory Depth Respiratory Pattern Blood Pressure 93/64 95/64 97/70 Blood Pressure Mean 73 74 79 Pulse Ox 97 98 99 Oxygen Delivery Method Room Air Room Air Positive well nourished and well developed General Appearance ED: well developed and NAD HEENT Reports TM's clear and moist mucous membranes HEENT Narrative: Normal oropharynx. Normal nasal mucosa Tympanic Membrane ED: Yes TM's clear Eyes PERRL Neck no lymphadenopathy, supple and no JVD Chest Wall inspection of chest normal Chest Narrative: Mild tenderness palpation of the anterior chest/sternum. No chest wall crepitus. Resp normal res (more content not included)... Normal [facility] Eosinophil percentageOrdered By: Tonia Hernandez on 09-30-2024 Eosinophils/100 WBC (Bld) 0.9 % 0-5 [facility] Epithelial cells.squamous LM Ql (Urine sed)Ordered By: Tonia Hernandez on 09-30-2024 Epithelial cells.squamous LM.HPF (Urine sed) [#/Area] 0 /[HPF] 5-10 [facility] Erythrocyte distribution wid th ratioOrdered By: Tonia Hernandez on 09-30-2024 Erythrocyte distribution width (RBC) [Ratio] 12.0 % 11.6-14.6 [facility] Erythrocyte distribution wid th standard deviationOrdered By: Tonia Hernandez on 09-30-2024 Erythrocyte distribution width (RBC) [Entitic vol] 39.7 fL 35.1-43.9 [facility] Estimated glomerular filtrat ion rate (GFR) AmericanOrdered By: Tonia Hernandez on 09-30-2024 Estimated GFR (MDRD) Amer 101 mL/min >60 [facility] Comment on above: GFR Calc Estimation of creatinine jolanta aranceOrdered By: Tonia Hernandez on 09-30-2024 Estimated Creatinine Clearance Calc 81.06 ml/min [facility] Glomerular filtration rate ( GFR) estimationOrdered By: Tonia Hernandez on 09-30-2024 Estimated GFR (MDRD) Non-Af Amer 83 mL/min >60 [facility] Comment on above: Non- GFR Calc Glucose Ql (U)Ordered By: Charly Hernandez on 09-30-2024 Urine Glucose (UA) Normal mg/dl Normal [facility] Glucose measurementOrdered B y: Tonia Hernandez on 09-30-2024 Glucose [Mass/Vol] 117 mg/dL High 74-106 [facility] Comment on above: Fasting Glucose resu lt from 100 to 125 mg/dL suggests IMPAIRED HOMEOSTASIS per A.D.A. criteria. Hematocrit Auto (Bld) [Volum e fraction]Ordered By: Tonia Hernandez on 09-30-2024 Hematocrit (Bld) [Volume fraction] 39.9 % 37-47 [facility] Hemoglobin measurementOrdere d By: Tonia Hernandez on 09-30-2024 Hemoglobin (Bld) [Mass/Vol] 13.7 g/dL 12.0-15.0 [facility] Hyaline casts LM.LPF (Urine sed) [#/Area]Ordered By: Tonia Hernandez on 09-30-2024 Hyaline casts LM Ql (Urine sed) 0-5 SEEN /lpf 0-5 [facility] Immature granulocytes/100 WB C Auto (Bld)Ordered By: Tonia Hernandez on 09-30-2024 Immature granulocytes/100 WBC (Bld) 0.300 % 0.0-0.9 [facility] Comment on above: IG% - Immature Granu locytes (promyelocytes, myelocytes and metamyelocytes) > 1% indicates that a LEFT SHIFT is Present. Influenza virus A and B and SARS-CoV-2 (COVID-19) and Respiratory syncytial virus RNAOrdered By: Tonia Hernandez on 09-30-2024 SARS-CoV-2 (COVID-19) RNA ANDREA+probe Ql (Unsp spec) [facility] Ketones Test strip Ql (U)Ord ered By: Tonia Hernandez on 09-30-2024 Ketones Ql (U) Negative Negative [facility] L501.4020on 09-30-2024 TROPONIN-I HS 4 pg/mL Normal 3.0-54.0 [facility] Comment on above: Result Comment: Plesultana metcalf Note: New Test Units and Gender Specific Reference Ranges. For more information see Policy Stat Procedure [place] High Sensitivity Troponin (TNIH) and attachments. Performed By: #### L 501.4020 ####[facility] [address] [place], [address] L501.5425on 09-30-2024 TROPONIN-I HS 6 pg/mL Normal 3.0-54.0 [facility] Comment on above: Order Comment: 1Y Result Comment: Plesultana metcalf Note: New Test Units and Gender Specific Reference Ranges. For more information see Policy Stat Procedure [place] High Sensitivity Troponin (TNIH) and attachments. Performed By: #### L 501.5425, L501.2450, L500.3400, L100.0100, L500.2500 ####[facility] [address] [place], [address] Laboratory - Chemistry and C hemistry - challengeOrdered By: Tonia Hernandez on 09-30-2024 AST [Catalytic activity/Vol] 27 U/L 15-37 [facility] Lipaseon 09-30-2024 Lipase [Catalytic activity/Vol] 43 U/L Normal 13-75 [facility] Comment on above: Order Comment: 1Y Result Comment: Plesultana metcalf note: LIPASE revised reference range effective 23. New Lipase methodology. Expected to produce lower values than the previous assay method. NEW Reference Range: 13 - 75 U/L Performed By: #### L 501.5425, L501.2450, L500.3400, L100.0100, L500.2500 ####[facility] [address] [place], [address] Lipase measurementOrdered By : Tonia Hernandez on 09-30-2024 Lipase [Catalytic activity/Vol] 43 U/L 13-75 [facility] Comment on above: Please note:LIPASE r evised reference range effective 23. New Lipase methodology. Expected to produce lower values than the previous assay method. NEW Reference Range: 13 - 75 U/L Liver Profileon 09-30-2024 Albumin [Mass/Vol] 4.4 g/dL Normal 3.2-5.0 [facility] Comment on above: Order Comment: 1Y Performed By: #### L 501.5425, L501.2450, L500.3400, L100.0100, L500.2500 ####[facility] [address] [place], [address] ALK P 76 U/L Normal 45-117 [facility] Comment on above: Order Comment: 1Y Performed By: #### L 501.5425, L501.2450, L500.3400, L100.0100, L500.2500 ####[facility] [address] [place], [address] ALT [Catalytic activity/Vol] 16 U/L Normal 13-56 [facility] Comment on above: Order Comment: 1Y Performed By: #### L 501.5425, L501.2450, L500.3400, L100.0100, L500.2500 ####[facility] [address] [place], [address] AST [Catalytic activity/Vol] 27 U/L Normal 15-37 [facility] Comment on above: Order Comment: 1Y Performed By: #### L 501.5425, L501.2450, L500.3400, L100.0100, L500.2500 ####[facility] [address] [place], [address] Bilirubin [Mass/Vol] 0.50 mg/dL Normal 0.20-1.00 [facility] Comment on above: Order Comment: 1Y Result Comment: For patients on eltrombopag therapy, use of Dimension [place] TBIL is not recommended. Performed By: #### L 501.5425, L501.2450, L500.3400, L100.0100, L500.2500 ####[facility] [address] [place], [address] Bilirubin.direct [Mass/Vol] 0.14 mg/dL Normal 0.00-0.30 [facility] Comment on above: Order Comment: 1Y Performed By: #### L 501.5425, L501.2450, L500.3400, L100.0100, L500.2500 ####[facility] [address] [place], [address] Globulin (S) [Mass/Vol] 3.8 g/dL Normal 2.2-4.2 [facility] Comment on above: Order Comment: 1Y Performed By: #### L 501.5425, L501.2450, L500.3400, L100.0100, L500.2500 ####[facility] [address] [place], [address] T PROT 8.2 g/dL Normal 6.4-8.2 [facility] Comment on above: Order Comment: 1Y Performed By: #### L 501.5425, L501.2450, L500.3400, L100.0100, L500.2500 ####[facility] [address] [place], [address] Lymphocytes Auto (Unsp spec) [#/Vol]Ordered By: Tonia Hernandez on 09-30-2024 Lymphocytes (Bld) [#/Vol] 3.16 10*3/uL 0.83-4.51 [facility] Lymphocytes/100 WBC Auto (Un sp spec)Ordered By: Tonia Hernandez on 09-30-2024 Lymphocytes/100 WBC (Bld) 19.7 % 19-41 [facility] M100.678on 09-30-2024 M100.678 Pending SARS-CoV-2 (COVID 19) Negative INFLUENZA A Negative INFLUENZA B Negative RSV PCR Negative Normal [facility] Comment on above: Performed By: #### M 100.505 #### [facility] [address] [place], [address] MCV (mean corpuscular volume ) determinationOrdered By: Tonia Hernandez on 09-30-2024 MCV (RBC) [Entitic vol] 90.3 fL 81-99 [facility] Mean corpuscular hemoglobin (MCH) determinationOrdered By: Tonia Hernandez on 09-30-2024 MCH (RBC) [Entitic mass] 31.0 pg 27.0-32.0 [facility] Mean corpuscular hemoglobin concentration (MCHC) determinationOrdered By: Tonia Hernandez on 09-30-2024 MCHC (RBC) [Mass/Vol] 34.3 g/dL 32-36 [facility] Mean platelet volume determi nationOrdered By: Tonia Hernandez on 09-30-2024 Platelet mean volume (Bld) [Entitic vol] 9.6 fL 6.2-12.0 [facility] Microscopic analysis of urin e for red blood cells (RBC)Ordered By: Tonia Hernandez on 09-30-2024 Urine RBC 0 SEEN /hpf 0-5 [facility] Monocyte percentageOrdered B y: Tonia Hernandez on 09-30-2024 Monocytes/100 WBC (Bld) 6.7 % 0-10 [facility] Mucus LM Ql (Urine sed)Order ed By: Tonia Hernandez on 09-30-2024 Mucus Ql (Urine sed) 1+ /hpf [facility] Neutrophil percentageOrdered By: Tonia Hernandez on 09-30-2024 Neutrophils/100 WBC (Bld) 72.2 % High 47-70 [facility] Nitrite Test strip Ql (U)Ord ered By: Tonia Hernandez on 09-30-2024 Nitrite Ql (U) Negative Negative [facility] Nucleated red blood cell per centageOrdered By: Tonia Hernandez on 09-30-2024 Nucleated RBC/100 WBC (Bld) [Ratio] 0 % 0-5 [facility] Platelet countOrdered By: Charly Hernandez on 09-30-2024 Platelets (Bld) [#/Vol] 440 10*3/uL 150-450 [facility] Potassium measurementOrdered By: Tonia Hernandez on 09-30-2024 Potassium [Moles/Vol] 3.7 mmol/L 3.5-5.1 [facility] ,Urineon 09-30-2024 Beta HCG ( test) Ql (U) Negative Normal [facility] Comment on above: Order Comment: CLEAN CATCH Result Comment: Very dilute urine specimens, as indicated by a low specific gravity, may not contain inside sales representative levels of hCG. If is still suspected, a first morning urine specimen should be collected 48 hours later and tested. Performed By: #### L 400.7600, L400.0001 ####[facility] [address] [place], [address] Protein Test strip Ql (U)Ord ered By: Tonia Hernandez on 09-30-2024 Protein Ql (U) 30 mg/dl High Negative [facility] RBC Auto (Bld) [#/Vol]Ordere d By: Tonia Hernandez on 09-30-2024 RBC (Bld) [#/Vol] 4.42 10*6/uL 4.2-5.4 [facility] RBC casts LM Ql (Urine sed)O rdered By: Tonia Hernandez on 09-30-2024 Urine Red Blood Cell Casts 0-5 SEEN /lpf None Seen [facility] Serum anion gap measurementO rdered By: Tonia Hernandez on 09-30-2024 Anion gap [Moles/Vol] 8 mmol/L 5-15 [facility] Serum globulin measurementOr dered By: Tonia Hernandez on 09-30-2024 Globulin (S) [Mass/Vol] 3.8 g/dL 2.2-4.2 [facility] Serum or plasma alanine hensley otransferase (ALT) measurementOrdered By: Tonia Hernandez on 01-05-2025 ALT [Catalytic activity/Vol] 16 U/L 13-56 [facility] Serum or plasma albumin carlos eduardo urement (mass/volume)Ordered By: Tonia Hernandez on 09-30-2024 Albumin [Mass/Vol] 4.4 g/dL 3.2-5.0 [facility] Serum or plasma alkaline avel sphatase measurementOrdered By: Tonia Hernandez on 09-30-2024 ALP [Catalytic activity/Vol] 76 U/L 45-117 [facility] Serum or plasma calcium carlos eduardo urement (mass/volume)Ordered By: Tonia Hernandez on 09-30-2024 Calcium [Mass/Vol] 9.3 mg/dL 8.5-10.1 [facility] Serum or plasma creatinine m easurement (mass/volume)Ordered By: Tonia Hernandez on 09-30-2024 Creatinine [Mass/Vol] 0.87 mg/dL 0.55-1.02 [facility] Comment on above: The validity of the calculated GFR & GFRAA in patients over 70 years has not been determined. Clinical correlation is essential. Serum or plasma urea nitroge n measurement (mass/volume)Ordered By: Tonia Hernandez on 09-30-2024 Urea nitrogen [Mass/Vol] 11 mg/dL 7-18 [facility] Sodium levelOrdered By: Alex Hernandez on 09-30-2024 Sodium [Moles/Vol] 138 mmol/L 136-145 [facility] Total proteinOrdered By: Thania Hernandez on 09-30-2024 Protein [Mass/Vol] 8.2 g/dL 6.4-8.2 [facility] Troponin IOrdered By: Tonia Hernandez on 09-30-2024 Troponin I High Sensitivity 4 pg/mL 3.0-54.0 [facility] Comment on above: Please Note: New Ayesha t Units and Gender Specific Reference Ranges. For more information see Policy Stat Procedure [place] High Sensitivity Troponin (TNIH) and attachments. Urinalysis, Completeon 09-30 CAST,RBC 0-5 SEEN Normal None Seen [facility] Comment on above: Order Comment: CLEAN CATCH Performed By: #### L 400.7600, L400.0001 ####[facility] [address] [place], [address] Mucus Ql (Urine sed) 1+ /hpf Normal [facility] Comment on above: Order Comment: CLEAN CATCH Performed By: #### L 400.7600, L400.0001 ####[facility] [address] [place], [address] CAST,HYALINE 0-5 SEEN Normal 0-5 [facility] Comment on above: Order Comment: CLEAN CATCH Performed By: #### L 400.7600, L400.0001 ####[facility] [address] [place], [address] EPI,SQUAMOUS 0-5 SEEN Normal 5-10 [facility] Comment on above: Order Comment: CLEAN CATCH Performed By: #### L 400.7600, L400.0001 ####[facility] [address] [place], [address] BACTERIA 0 SEEN Normal None Seen [facility] Comment on above: Order Comment: CLEAN CATCH Performed By: #### L 400.7600, L400.0001 ####[facility] [address] [place], [address] RBC 0 SEEN Normal 0-5 [facility] Comment on above: Order Comment: CLEAN CATCH Performed By: #### L 400.7600, L400.0001 ####[facility] [address] [place], [address] WBC 0 SEEN Normal 0-5 [facility] Comment on above: Order Comment: CLEAN CATCH Performed By: #### L 400.7600, L400.0001 ####[facility] [address] [place], [address] Urine blood detectionOrdered By: Tonia Hernandez on 09-30-2024 Urine Occult Blood 50 /ul High Negative [facility] Urine clarityOrdered By: Thania Hernandez on 09-30-2024 Clarity (U) Sl. Cloudy Clear [facility] Urine color determinationOrd ered By: Tonia Hernandez on 09-30-2024 Color (U) Yellow Yellow [facility] Urine leukocyte esterase det ection by dipstickOrdered By: Tonia Hernandez on 09-30-2024 Leukocyte esterase Test strip Ql (U) 25 /ul High Negative [facility] Urine pHOrdered By: Tonia emanuel on 09-30-2024 pH (U) 5.0 [pH] 5.0 - 8.0 [facility] Urine testOrdered By: Tonia Hernandez on 09-30-2024 HCG ( test) Ql (U) Negative [facility] Comment on above: Very dilute urine sp ecimens, as indicated by a low specificgravity, may not contain inside sales representative levels of hCG. If is still suspected, a first morning urinespecimen should be collected 48 hours later and tested. Urine sediment bacteria coun t by microscopy (number/high power field)Ordered By: Tonia Hernandez on 09-30-2024 Bacteria LM.HPF (Urine sed) [#/Area] 0 /[HPF] None Seen [facility] Urine specific gravity measu rementOrdered By: Tonia Hernandez on 09-30-2024 Specific gravity (U) [Rel density] 1.025 1.002-1.030 [facility] Urobilinogen Ql (U)Ordered B y: Tonia Hernandez on 09-30-2024 Urobilinogen (U) [Mass/Vol] 1 mg/dL High Normal [facility] White blood cell (WBC) count Ordered By: Tonia Hernandez on 09-30-2024 WBC (Bld) [#/Vol] 16.1 10*3/uL High 4.4-11.0 [facility] White blood cell countOrdere d By: Tonia Hernandez on 09-30-2024 Urine WBC 0 SEEN /hpf 0-5 [facility] Surgery Visit Reporton 08-16 Surgery Visit Report [facility] [address] [place] [address] [address] [place], [place] [address] OFFICE VISIT Date of Service: 08/16/24 MR#: [id number] Acct: [id number] Name: MERCED ECHEVARRIA Rep #: [id number] : 2000 Provider: Dr. Taylor boss MD Age/Sex: 23/F Location: [facility] Status: Signed Intake Vital Signs 07/25/24 13:58 Height 5 ft 3 in Weight: 125 lb BMI 22.1 BP 112/74 Blood Pressure Location Lt brachial Position Sitting Respiration 16 Intake Visit Reasons: EXCISION OF LIPOMA ON BACK Chief Complaint: excision of lipoma of back Is patient in pain?: No Allergies No Known Allergies Allergy (Verified 08/16/24 13:12) Medications ???Medication ???Instructions ???Recorded ???Confirmed ???Type alprazolam 0.25 mg tablet 0.25 mg PO TID PRN 07/25/24 08/16/24 History PFSH Medical History History of prior with IUGR Anxiety Depression Surgical History (Updated 07/25/24 @ 13:58 by Kimmie Segovia) S/P laparoscopic cholecystectomy Previous section Social History (Updated 07/25/24 @ 13:58 by Kimmie Segovia) Smoking Status: Current every day smoker alcohol intake: never HPI HPI HPI: 23-year-old female presents for excision of left back lipoma has has been causing her discomfort. ROS General General: Yes weight change and fatigue; No appetite, colon cancer or breast cancer HEENT HEENT: No difficulty swallowing, eye injury, eye surgery, swollen glands or hoarseness Endo Endocrine: No thyroid disease, diabetes mellitus, thyroid cancer, Hair loss, heat intolerance or cold intolerance Skin Skin: No rash or changing moles Musc Musculoskeletal: Yes back problems; No arthritis, rheumatoid arthritis, gout or joint pain Cardio Cardiovascular: No murmur, pacemaker, heart disease, atrial fibrillation, high blood pressure, heart attack, heart stent, palpitations, shortness of breat with exertion or chest pain Psych Psychiatric: Yes anxiety; No depression or hearing voices Resp Respiratory: No shortness of breath, No sleep apnea, No cough, No COPD, No asthma, No emphysema and No wheezing Gastro Gastrointestinal: No abdominal pain, No nausea or vomiting, No diarrhea, No constipation, No blood in stool, No acid reflux, No hemorrhoids, No ulcers, No gallbladder problem and No black,tarry stool s Sohail Hematologic: No blood thinners, No blood disorders, No bleeding, No anemia and No blood clots Neuro Neurologic: No numbness and No tingling Office Procedures Excision and Linear Repair Procedure performed by: Taylor Ty Informed consent given: Yes Consent signed: Yes Size of lesion (cm): 3 (3 x 3 x 1.5 cm consistent with lipoma) Amount of lidocaine applied (mL): 6 Preparation: chlorhexidine Device used for excision: #15 blade Cutaneous deformities present: No Hemostasis: pressure and electrocautery (Hyfrecator) Buried vertical mattress suture used: No Sutures used for cuticle layer: Yes (3-0 Vicryl interrupted subdermal's) Patient tolerated procedure: well Complications: No Procedure Time Out Time Out Informed consent given: Yes Consent signed: Yes Time out checklist: patient, procedure, site marked/identified, positioning of patient, supplies available, allergies confirmed and team agrees on procedure Time out staff in room: Yes Time out verified: Yes Time out date: 08/16/24 Assessment and Plan Assessment and Plan (1) Lipoma of back: Status: Acute Comment: Left mid Plan Patient tolerated excision of left back lipoma well in office. Specimen was not sent to pathology was consistent with lipoma. Follow-up as needed. Patient is agreeable to plan. Taylor Ty M.D. Pager: [phone] [facility] [address] [place] [address], [address] [place] [address] Office: [phone] Coding Level of Care Code Attention Jos Diagnoses Lipoma of back D17.1 Comment [id number] 08/17/24 1203 Date Taylor Lindquist Signature: Date (if applicable) CC: LEIGHANN Castillo [facility] Free T3 [Mass/Vol] 3.0 pg/mL Normal 2.3-4.1 [facility] Comment on above: Order Comment: Speci men Type: BLOOD SPECIMEN Ordering Facility: [facility] Address: [facility] [address] [place] [address] Performed By: #### 3 051-0, TGAB #### [facility] CLIA [id number] [address] [place] [address] [place] THYROGLOBULIN ANTIBODYon Thyroglobulin Ab Qn [IU]/mL Normal <4.0 [facility] Comment on above: Order Comment: Speci men Type: BLOOD SPECIMEN Ordering Facility: [facility] Address: [address] [place] [address], [place] [address] Result Comment: The Thyroglobulin Antibody test was performed using the [employer] DXI paramagnetic particle chemiluminescent immunoassay method. Results obtained with different assay methods or kits cannot be used interchangeably. Performed By: #### 3 051-0, TGAB #### [facility] CLIA [id number] [address] [place] [address] [place] UA DIP, URINE (POC)on 2023 BILIRUBIN UA (POCT) Negative Negative [facility] CLARITY UA (POCT) Clear [facility] COLOR UA (POCT) Yellow [facility] GLUCOSE UA (POCT) Negative Negative mg/dL [facility] Hemoglobin Ql (U) Large Abnormal Negative [facility] Interpretation and review of laboratory results Abnormal [facility] KETONE UA (POCT) Trace Negative mg/dL [facility] LEUKOCYTES UA (POCT) Small Abnormal Negative [facility] NITRITE UA (POCT) Negative Negative [facility] PH UA (POCT) 6.0 4.5 - 8.0 [facility] Protein Ql (U) >=300 Abnormal Negative mg/dL [facility] SPECIFIC GRAVITY UA (POCT) >=1.030 1.005 - 1.030 [facility] UROBILINOGEN UA (POCT) 0.2 Rhea l E.U./dL [facility] Location:[address], [place], [address] [facility] POINT OF CARE [facility] Final Surgical Pathology Rep huang 11-12-2022 Final Surgical Pathology Report . Pathology Reports Accession: Collected Date/Time: Received Date/Time: Pathologist: [id number] 11/10/2022 13:12 EST 11/11/2022 13:12 IDALMIS ESPINOSA MD Final Surgical Pathology Report DIAGNOSIS: GALLBLADDER: - CHRONIC CHOLECYSTITIS WITH CHOLESTEROLOSIS COMMENT: [facility] - [id number] CLINICAL INFORMATION: BILIARY COLIC Procedure: LAPAROSCOPIC CHOLECYSTECTOMY SPECIMEN: A GALLBLADDER GROSS DESCRIPTION: A. Received in formalin, labeled with the patients name, Case #[id number], and gallbladder Dimensions-6 x 3.5 x 3 cm Cystic duct/pericystic duct lymph node-patent, no lymph node Serosal surface-Green, smooth Luminal contents-dark green liquid bile and no calculi Mucosal surface-Green, velvety with minute yellow specks Wall thickness-0.1 cm RS- 1 Dictated by KRISTEN MORAN MICROSCOPIC DESCRIPTION: The microscopic examination is performed, except in the case of Gross Only. Electronically Signed by Pathology Report verified by [facility] IDALMIS EDWARDS Sign out Date: 11/12/2022 11:36 Performing Lab: [facility], [address] [place] [address] Pathology Dept Normal [facility] HCG QUAL UR B/Oon 02-17-2022 status Negative neg - pos [facility] Quality Check Yes [facility] VitD, 1,25 Dihydroxyon 07-28 1,25 Dihydroxy VitD2 <4.0 Normal [facility] Comment on above: Performed By: #### 1 25VTD #### [facility] Chemistry [address] [place], [place] [address] 1,25 Dihydroxy VitD3 111.6 pg/mL Normal [facility] Comment on above: Performed By: #### 1 25VTD #### [facility] Chemistry [address] [place], [place] [address] Vit D,1,25 DiOH High 15.0-60.0 [facility] Comment on above: Result Comment: 111. 6 This test was developed and its performance characteristics determined by [facility]'s Kristen Figueredo [facility] Pathology and Laboratory Medicine [place] (RT PLID). It has not been cleared or approved by the FDA. [facility] is regulated under CLIA as qualified to perform high complexity testing. This test is used for clinical purposes. It should not be regarded as investigational or for research. Performed By: #### 1 25VTD #### [facility] Chemistry [address] [place], [place] [address] HepB SurfaceAb,Quanton 04-21 HepB SurfaceAb,Quant <8.00 Normal <8.00 [facility] Comment on above: Performed By: #### M EASLG, AHBSQ, MUMPSG, RUBIGG #### [facility] Routine Lab [address] [place], [place] [address] Measles IgG Antibodyon 04-21 Measles IgG Ab, Qual Abnormal Negative [facility] Comment on above: Result Comment: Posi tive Presence of detectable measles virus IgG antibodies. A positive result generally indicates exposure to measles virus or previous vaccination. Performed By: #### M EASLG, AHBSQ, MUMPSG, RUBIGG #### [facility] Routine Lab [address] [place], [place] [address] Measles IgG Antibody Normal [facility] Comment on above: Result Comment: >300 .0 AU/mL Negative Specimens <13.5 Equivocal Specimens >=13.5 to <16.5 Positive Specimens >=16.5 The magnitude of the measured result, above the cutoff, is not indicative of the amount of antibody present. Value Negative Specimens <13.5 Equivocal Specimens >=13.5 to <16.5 Positive Specimens >=16.5 The magnitude of the measured result, above the cutoff, is not indicative of the amount of antibody present. interpreted as Negative Specimens <13.5 Equivocal Specimens >=13.5 to <16.5 Positive Specimens >=16.5 The magnitude of the measured result, above the cutoff, is not indicative of the amount of antibody present. follows: Negative Specimens <13.5 Equivocal Specimens >=13.5 to <16.5 Positive Specimens >=16.5 The magnitude of the measured result, above the cutoff, is not indicative of the amount of antibody present. Performed By: #### M EASLG, AHBSQ, MUMPSG, RUBIGG #### [facility] Routine Lab [address] [place] [place] [address] Mumps IgG Abon 04-21-2021 Mumps IgG Ab 73.0 AU/mL Normal [facility] Comment on above: Performed By: #### M EASLG, AHBSQ, MUMPSG, RUBIGG #### [facility] Routine Lab [address] [place] [address] Mumps IgG, Qual Positive Abnormal Negative [facility] Comment on above: Performed By: #### M EASLG, AHBSQ, MUMPSG, RUBIGG #### [facility] Routine Lab [address] [place] [address] Rubella IgG Antibodyon 04-21 Rubella IgG Ab 23.10 Index Value Normal [facility] Reference Lab Comment on above: Performed By: #### M EASLG, AHBSQ, MUMPSG, RUBIGG #### [facility] Routine Lab [address] [place] [address] Rubella IgG Ab, Qual Positive Abnormal Negative [facility] Comment on above: Performed By: #### M EASLG, AHBSQ, MUMPSG, RUBIGG #### [facility] Routine Lab [address] [place] [address] SARS-COV-2,NAAon 01-23-2021 SARS-CoV-2 (COVID-19) RNA ANDREA+probe Ql (Unsp spec) Not detected Normal [facility] Comment on above: Result Comment: Refe rence range: Not Detected (NOTE) This nucleic acid amplification test was developed and its performance characteristics determined by [employer]. Nucleic acid amplification tests include RT-PCR and TMA. This test has not been FDA cleared or approved. This test has been authorized by FDA under an Emergency Use Authorization (EUA). This test is only authorized for the duration of time the declaration that circumstances exist justifying the authorization of the emergency use of in vitro diagnostic tests for detection of SARS-CoV-2 virus and/or diagnosis of COVID-19 infection under section 564(b)(1) of the Act, 21 U.S.C. 360bbb-3(b) (1), unless the authorization is terminated or revoked sooner. When diagnostic testing is negative, the possibility of a false negative result should be considered in the context of a patient's recent exposures and the presence of clinical signs and symptoms consistent with COVID-19. An individual without symptoms of COVID- 19 and who is not shedding SARS-CoV-2 virus would expect to have a negative (not detected) result in this assay. [facility] Performed By: #### L COVID #### Testing performed at [facility] [address] [facility] [place] [address] SARS-COV-2,NAAon 01-02-2021 SARS-CoV-2 (COVID-19) RNA ANDREA+probe Ql (Unsp spec) Not detected Normal [facility] Comment on above: Result Comment: Refe rence range: Not Detected (NOTE) This nucleic acid amplification test was developed and its performance characteristics determined by [employer]. Nucleic acid amplification tests include RT-PCR and TMA. This test has not been FDA cleared or approved. This test has been authorized by FDA under an Emergency Use Authorization (EUA). This test is only authorized for the duration of time the declaration that circumstances exist justifying the authorization of the emergency use of in vitro diagnostic tests for detection of SARS-CoV-2 virus and/or diagnosis of COVID-19 infection under section 564(b)(1) of the Act, 21 U.S.C. 360bbb-3(b) (1), unless the authorization is terminated or revoked sooner. When diagnostic testing is negative, the possibility of a false negative result should be considered in the context of a patient's recent exposures and the presence of clinical signs and symptoms consistent with COVID-19. An individual without symptoms of COVID- 19 and who is not shedding SARS-CoV-2 virus would expect to have a negative (not detected) result in this assay. SARS-COV-2,NAAon 12-19-2020 SARS-CoV-2 (COVID-19) RNA ANDREA+probe Ql (Unsp spec) Not detected Normal [facility] Comment on above: Result Comment: Refe rence range: Not Detected (NOTE) This nucleic acid amplification test was developed and its performance characteristics determined by [employer]. Nucleic acid amplification tests include RT-PCR and TMA. This test has not been FDA cleared or approved. This test has been authorized by FDA under an Emergency Use Authorization (EUA). This test is only authorized for the duration of time the declaration that circumstances exist justifying the authorization of the emergency use of in vitro diagnostic tests for detection of SARS-CoV-2 virus and/or diagnosis of COVID-19 infection under section 564(b)(1) of the Act, 21 U.S.C. 360bbb-3(b) (1), unless the authorization is terminated or revoked sooner. When diagnostic testing is negative, the possibility of a false negative result should be considered in the context of a patient's recent exposures and the presence of clinical signs and symptoms consistent with COVID-19. An individual without symptoms of COVID- 19 and who is not shedding SARS-CoV-2 virus would expect to have a negative (not detected) result in this assay. Coronavirus 2019on SARS-CoV-2 (COVID-19) RNA ANDREA+probe Ql (Unsp spec) Normal Negative for COVID19 (SARS CoV2) by PCR. [facility] Comment on above: Result Comment: Nega tive for This test was developed and its performance characteristics determined by [facility]'s Kristen Figueredo [facility] Pathology and [facility] [place]. This test has been authorized by FDA under an Emergency Use Authorization (EUA). This test has been validated in accordance with the FDA's Guidance Document Policy for Diagnostics Testing in Laboratories Certified to Perform High Complexity Testing under CLIA prior to Emergency use Authorization for Coronavirus Disease 2019 during the Public Health Emergency issued on November 24, 2019. Test performed by [facility], Kristen Figueredo [facility] [place], [address] [place] [address]. COVID19 (SARS This test was developed and its performance characteristics determined by [facility]'s [facility] and Laboratory Medicine [place]. This test has been authorized by FDA under an Emergency Use Authorization (EUA). This test has been validated in accordance with the FDA's Guidance Document Policy for Diagnostics Testing in Laboratories Certified to Perform High Complexity Testing under CLIA prior to Emergency use Authorization for Coronavirus Disease 2019 during the Public Health Emergency issued on November 24, 2019. Test performed by [facility], [facility] and Laboratory [facility] [place], [address] [id number]. CoV2) by PCR. This test was developed and its performance characteristics determined by [facility]'s [facility] and Laboratory [facility] [place]. This test has been authorized by FDA under an Emergency Use Authorization (EUA). This test has been validated in accordance with the FDA's Guidance Document Policy for Diagnostics Testing in Laboratories Certified to Perform High Complexity Testing under CLIA prior to Emergency use Authorization for Coronavirus Disease 2019 during the Public Health Emergency issued on November 24, 2019. Test performed by [facility], [facility], [address] [place] [id number]. 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 Nucleic acid amplification tests include RT-PCR and TMA. This test has not been FDA cleared or approved. This test has been authorized by FDA under an Emergency Use Authorization (EUA). This test is only authorized for the duration of time the declaration that circumstances exist justifying the authorization of the emergency use of in vitro diagnostic tests for detection of SARS-CoV-2 virus and/or diagnosis of COVID-19 infection under section 564(b)(1) of the Act, 21 U.S.C. 360bbb-3(b) (1), unless the authorization is terminated or revoked sooner. When diagnostic testing is negative, the possibility of a false negative result should be considered in the context of a patient's recent exposures and the presence of clinical signs and symptoms consistent with COVID-19. An individual without symptoms of COVID- 19 and who is not shedding SARS-CoV-2 virus would expect to have a negative (not detected) result in this assay. PERFORMED AT [facility] Performed By: #### L COVID #### Testing performed at [facility] [address] [place] [id number] SARS-COV-2,NAAon 11-20-2020 SARS-CoV-2 (COVID-19) RNA ANDREA+probe Ql (Unsp spec) Not detected Normal [facility] Comment on above: Result Comment: Refe rence range: Not Detected (NOTE) This nucleic acid amplification test was developed and its performance characteristics determined by [employer]. Nucleic acid amplification tests include RT-PCR and TMA. This test has not been FDA cleared or approved. This test has been authorized by FDA under an Emergency Use Authorization (EUA). This test is only authorized for the duration of time the declaration that circumstances exist justifying the authorization of the emergency use of in vitro diagnostic tests for detection of SARS-CoV-2 virus and/or diagnosis of COVID-19 infection under section 564(b)(1) of the Act, 21 U.S.C. 360bbb-3(b) (1), unless the authorization is terminated or revoked sooner. When diagnostic testing is negative, the possibility of a false negative result should be considered in the context of a patient's recent exposures and the presence of clinical signs and symptoms consistent with COVID-19. An individual without symptoms of COVID- 19 and who is not shedding SARS-CoV-2 virus would expect to have a negative (not detected) result in this assay. PERFORMED AT [facility] Performed By: #### L COVID #### Testing performed at [facility] [address] [place] [id number] SARS-COV-2,NAAon 11-06-2020 SARS-CoV-2 (COVID-19) RNA ANDREA+probe Ql (Unsp spec) Not detected Normal [facility] Comment on above: Result Comment: Refe rence range: Not Detected (NOTE) This nucleic acid amplification test was developed and its performance characteristics determined by [employer]. Nucleic acid amplification tests include RT-PCR and TMA. This test has not been FDA cleared or approved. This test has been authorized by FDA under an Emergency Use Authorization (EUA). This test is only authorized for the duration of time the declaration that circumstances exist justifying the authorization of the emergency use of in vitro diagnostic tests for detection of SARS-CoV-2 virus and/or diagnosis of COVID-19 infection under section 564(b)(1) of the Act, 21 U.S.C. 360bbb-3(b) (1), unless the authorization is terminated or revoked sooner. When diagnostic testing is negative, the possibility of a false negative result should be considered in the context of a patient's recent exposures and the presence of clinical signs and symptoms consistent with COVID-19. An individual without symptoms of COVID- 19 and who is not shedding SARS-CoV-2 virus would expect to have a negative (not detected) result in this assay. SARS-COV-2,NAAon 10-23-2020 SARS-CoV-2 (COVID-19) RNA ANDREA+probe Ql (Unsp spec) Not detected Normal [facility] Comment on above: Result Comment: Refe rence range: Not Detected (NOTE) This nucleic acid amplification test was developed and its performance characteristics determined by [employer]. Nucleic acid amplification tests include RT-PCR and TMA. This test has not been FDA cleared or approved. This test has been authorized by FDA under an Emergency Use Authorization (EUA). This test is only authorized for the duration of time the declaration that circumstances exist justifying the authorization of the emergency use of in vitro diagnostic tests for detection of SARS-CoV-2 virus and/or diagnosis of COVID-19 infection under section 564(b)(1) of the Act, 21 U.S.C. 360bbb-3(b) (1), unless the authorization is terminated or revoked sooner. When diagnostic testing is negative, the possibility of a false negative result should be considered in the context of a patient's recent exposures and the presence of clinical signs and symptoms consistent with COVID-19. An individual without symptoms of COVID- 19 and who is not shedding SARS-CoV-2 virus would expect to have a negative (not detected) result in this assay. SARS-COV-2,NAAon 10-09-2020 SARS-CoV-2 (COVID-19) RNA ANDREA+probe Ql (Unsp spec) Not detected Normal [facility] Comment on above: Result Comment: Refe rence range: Not Detected (NOTE) This nucleic acid amplification test was developed and its performance characteristics determined by [employer]. Nucleic acid amplification tests include PCR and TMA. This test has not been FDA cleared or approved. This test has been authorized by FDA under an Emergency Use Authorization (EUA). This test is only authorized for the duration of time the declaration that circumstances exist justifying the authorization of the emergency use of in vitro diagnostic tests for detection of SARS-CoV-2 virus and/or diagnosis of COVID-19 infection under section 564(b)(1) of the Act, 21 U.S.C. 360bbb-3(b) (1), unless the authorization is terminated or revoked sooner. When diagnostic testing is negative, the possibility of a false negative result should be considered in the context of a patient's recent exposures and the presence of clinical signs and symptoms consistent with COVID-19. An individual without symptoms of COVID- 19 and who is not shedding SARS-CoV-2 virus would expect to have a negative (not detected) result in this assay. SARS-COV-2,NAAon 09-24-2020 SARS-COV-2, ANDREA Not Detected Normal [facility] [place] [facility] Comment on above: Result Comment: Refe rence range: Not Detected (NOTE) This nucleic acid amplification test was developed and its performance characteristics determined by [employer]. Nucleic acid amplification tests include PCR and TMA. This test has not been FDA cleared or approved. This test has been authorized by FDA under an Emergency Use Authorization (EUA). This test is only authorized for the duration of time the declaration that circumstances exist justifying the authorization of the emergency use of in vitro diagnostic tests for detection of SARS-CoV-2 virus and/or diagnosis of COVID-19 infection under section 564(b)(1) of the Act, 21 U.S.C. 360bbb-3(b) (1), unless the authorization is terminated or revoked sooner. When diagnostic testing is negative, the possibility of a false negative result should be considered in the context of a patient's recent exposures and the presence of clinical signs and symptoms consistent with COVID-19. An individual without symptoms of COVID- 19 and who is not shedding SARS-CoV-2 virus would expect to have a negative (not detected) result in this assay. XR CHEST PA AND LATERALon XR CHEST PA AND LATERAL EXAM: XR CHEST P A AND LATERAL 09/12/2020 3:42 PM EST HISTORY: Pre-employment examination COMPARISON: None. TECHNIQUE: PA and lateral views FINDINGS: Lungs are clear. The cardiomediastinal configuration is within normal limits. No acute bony abnormalities. IMPRESSION: No acute cardiopulmonary abnormalities. Normal [facility] Coronavirus 2019on 0 SARS-CoV-2 (COVID-19) RNA ANDREA+probe Ql (Unsp spec) Normal Negative for COVID19 (SARS CoV2) by PCR. [facility] Comment on above: Result Comment: Nega tive for This test was developed and its performance characteristics determined by [facility]'s [facility] [place]. This test has been authorized by FDA under an Emergency Use Authorization (EUA). This test has been validated in accordance with the FDA's Guidance Document Policy for Diagnostics Testing in Laboratories Certified to Perform High Complexity Testing under CLIA prior to Emergency use Authorization for Coronavirus Disease 2019 during the Public Health Emergency issued on November 24, 2019. COVID19 (SARS This test was developed and its performance characteristics determined by [facility]'s [facility] [place]. This test has been authorized by FDA under an Emergency Use Authorization (EUA). This test has been validated in accordance with the FDA's Guidance Document Policy for Diagnostics Testing in Laboratories Certified to Perform High Complexity Testing under CLIA prior to Emergency use Authorization for Coronavirus Disease 2019 during the Public Health Emergency issued on November 24, 2019. CoV2) by PCR. This test was developed and its performance characteristics determined by [facility]'s [facility] [place]. This test has been authorized by FDA under an Emergency Use Authorization (EUA). This test has been validated in accordance with the FDA's Guidance Document Policy for Diagnostics Testing in Laboratories Certified to Perform High Complexity Testing under CLIA prior to Emergency use Authorization for Coronavirus Disease 2019 during the Public Health Emergency issued on November 24, 2019. Performed By: #### C OVID #### [facility] [address] [place], [place] [address] Coronavirus 2019on 0 SARS-CoV-2 (COVID-19) RNA ANDREA+probe Ql (Unsp spec) Normal [facility] Comment on above: Result Comment: Naso pharyngeal Corrected on 08/18 AT 0753: Previously reported as NASOPHARYNGEAL Swab Corrected on 08/18 AT 0753: Previously reported as NASOPHARYNGEAL Performed By: #### C OVID #### [facility] [address] [place], [place] [id number] Vital Signs Date Time Vital Sign Value Performing Clinician Facility 09-30-2024 14:07-0500 Diastolic blood pressure 70 mm[Hg] [facility] Work Phone: [facility] 09-30-2024 14:07-0500 Heart rate 69 /min [facility] Work Phone: [facility] 09-30-2024 14:07-0500 Respiratory rate 16 /min [facility] Work Phone: [facility] 09-30-2024 14:07-0500 SaO2% (BldA) [Mass fraction] 99 % [employer] Work Phone: [facility] 09-30-2024 14:07-0500 Systolic blood pressure 97 mm[Hg] [employer] Work Phone: [facility] 09-30-2024 08:31-0500 Body temperature 98.1 [degF] [facility] Work Phone: [facility] 09-30-2024 08:18-0500 Body height 160.02 cm [facility] Work Phone: [facility] 09-30-2024 08:18-0500 Body mass index (BMI) [Ratio] 22.1 kg/m2 [facility] [email or web address] Work Phone: [facility] 09-30-2024 08:18-0500 Body weight 56.69 [facility] [employer] Work Phone: [facility] 02-25-2024 11:12-0400 Body temperature 97.59 [degF] Adelaide Acevedo APRN.TECHNICAL PUBLICATIONS WRITER Work Phone: [facility] 02-25-2024 11:12-0400 Body weight 58.7 kg Adelaide Acevedo APRN.TECHNICAL PUBLICATIONS WRITER Work Phone: [facility] 02-25-2024 11:12-0400 Diastolic blood pressure 64 mm[Hg] Adelaide Acevedo APRN.TECHNICAL PUBLICATIONS WRITER Work Phone: [facility] 02-25-2024 11:12-0400 Heart rate 69 /min Adelaide Acevedo APRN.TECHNICAL PUBLICATIONS WRITER Work Phone: [facility] 02-25-2024 11:12-0400 Respiratory rate 16 /min Adelaide Acevedo APRN.TECHNICAL PUBLICATIONS WRITER Work Phone: [facility] 02-25-2024 11:12-0400 SaO2% (BldA) [Mass fraction] 100 % Adelaide Acevedo APRN.TECHNICAL PUBLICATIONS WRITER Work Phone: [facility] 02-25-2024 11:12-0400 Systolic blood pressure 112 mm[Hg] Adelaide Acevedo APRN.TECHNICAL PUBLICATIONS WRITER Work Phone: [facility] 02-17-2022 11:52-0400 Body weight 65.77 kg Cherie Robertson MD Work Phone: [facility] 02-17-2022 11:52-0400 Diastolic blood pressure 62 mm[Hg] Cherie Robertson MD Work Phone: [facility] 02-17-2022 11:52-0400 Systolic blood pressure 108 mm[Hg] Cherie Robertson MD Work Phone: [facility] 01-26-2022 14:49-0400 Body weight 65.77 kg Cherie Robertson MD Work Phone: [facility] 01-26-2022 14:49-0400 Diastolic blood pressure 62 mm[Hg] Cherie Robertson MD Work Phone: [facility] 01-26-2022 14:49-0400 Systolic blood pressure 100 mm[Hg] Cherie Robertson MD Work Phone: [facility] 12-22-2021 15:05-0400 Body weight 67.59 kg Cherie Robertson MD Work Phone: [facility] 12-22-2021 15:05-0400 Diastolic blood pressure 76 mm[Hg] Cherie Robertson MD Work Phone: [facility] 12-22-2021 15:05-0400 Systolic blood pressure 110 mm[Hg] Cherie Robertson MD Work Phone: [facility] Encounters Encounter Date Encounter Type Care Provider Facility Start: 08-15-2025 ambulatory [facility] BHAVYA Negro ity:[facility] Start: 07-17-2025 End: 07-17-2025 Emergency department patient visit ELDER SALDANA [facility] Start: 07-17-2025 End: 07-17-2025 Patient encounter procedure Sandra LATIF -[facility] Work Phone: Start: 07-17-2025 End: 07-17-2025 ambulatory [facility] LEIGHANN Work Phone: -[facility] Start: 06-27-2025 End: 06-27-2025 ambulatory [facility] Start: 06-17-2025 End: 06-17-2025 ambulatory [facility] Start: 11-22-2024 End: 11-22-2024 ambulatory [facility] PA-C Work Phone: [facility] Work Phone: Start: 11-22-2024 End: 11-22-2024 Patient encounter procedure Sandra LATIF -Nuclear Medicine, [facility] Work Phone: Start: 11-22-2024 End: 11-22-2024 ambulatory [facility] Facility:[facility] Start: 10-25-2024 End: 10-25-2024 Patient encounter procedure Sandra LATIF -Laboratory, Specimen Work Phone: Start: 10-25-2024 End: 10-25-2024 ambulatory Sandra Meyer Facility:[facility] Start: 10-18-2024 End: 10-18-2024 Patient encounter procedure Sandra LATIF -[facility] Work Phone: Start: 10-18-2024 End: 10-18-2024 ambulatory [facility] Facility:[facility] Start: 09-30-2024 End: 09-30-2024 Emergency department patient visit Dr. Tonia Hernandez DO -Emergency Department Work Phone: Start: 08-16-2024 End: 08-16-[address] Taylor Ty MD -[facility] Work Phone: Start: 08-16-2024 End: 08-16-2024 ambulatory [facility] Facility:[facility] Start: 02-26-2024 Telephone encounter Mendez toure APRN.TECHNICAL PUBLICATIONS WRITER Work Phone: [facility] Comment on above: Results Start: 02-25-2024 End: 02-25-2024 Patient encounter procedure Adelaide Acevedo APRN.TECHNICAL PUBLICATIONS WRITER Work Phone: [facility] Comment on above: Urinary frequency (P rimary Dx); Vaginal burning Start: 02-17-2022 End: 02-17-2022 Patient encounter procedure Cherie Robertson MD Work Phone: OB/Gynecology Comment on above: Insertion of implant able subdermal contraceptive (Primary Dx) Start: 01-27-2022 Telephone encounter Aiden mccarthy MD Work Phone: OB/Gynecology Comment on above: Letter Start: 01-26-2022 End: 01-26-2022 Patient encounter procedure Cherie Robertson MD Work Phone: OB/Gynecology Comment on above: care and examination (Primary Dx); Encounter for initial prescription of implantable subdermal contraceptive Start: 12-22-2021 End: 12-22-2021 Patient encounter procedure Cherie Robertson MD Work Phone: OB/Gynecology Comment on above: care and examination immediately after delivery (Primary Dx) Start: 12-18-2021 Telephone encounter Aiden mccarthy MD Work Phone: OB/Gynecology Comment on above: Care Start: 12-15-2021 ambulatory Aiden Person Work Phone: OB/Gynecology Comment on above: Ob Delivery Note Start: 04-09-2021 End: 01-26-2022 Patient requested procedure Aiden Acevedo MD Work Phone: [facility] Work Phone: Start: 07-05-2017 End: 07-07-2017 Evaluation and management of inpatient Andra Comer Facility:[facility] Date Procedure Procedure Detail Performing Clinician Start: 07-17-2025 Urinalysis ELDER AGRAWAL Comment on above: Result Comment: URIN ALYSIS Performed By: #### [id number] #### [facility],[address] [place] [address] Start: 11-22-2024 Radionuclide gastric emptying study [facility] Work Phone: Start: 10-25-2024 Clostridium difficil e detection [facility] Work Phone: Start: 10-25-2024 Nucleic acid assay [facility] Work Phone: Start: 09-30-2024 SARS-CoV-2, Influenz a & RSV (PCR) Janine Castillo PA-C Work Phone: Start: 09-30-2024 X-ray of chest, PA a nd lateral views Janine Castillo PA-C Work Phone: Start: 02-25-2024 Urnls dip stick/tabl et rgnt auto w/o microscopy Adelaide Acevedo APRN.TECHNICAL PUBLICATIONS WRITER Work Phone: Start: 02-17-2022 Urine test visual color cmprsn abad Robertson MD Work Phone: H/O: section Previous c esarean delivery affecting Janine Castillo PA-C Work Phone: Comment on above: @ 40 weeks Plan of Treatment Date Care Activity Detail Author Start: 07-26-2033 Urine microalbumin profile DTaP,Tdap,Td Vaccine (9 - Td or Tdap) [facility] Start: 09-23-2031 Urine microalbumin profile DTAP,TDAP,TD (2 - Td or Tdap) [facility] Start: 07-17-2025 Protein measurement [facility] Start: 09-30-2024 End: 09-30-2024 [facility] Start: 05-12-2024 PAP TESTING PAP TESTING [facility] Start: 05-12-2024 Screening for malign ant neoplasm of cervix Pap Testing [facility] Start: 09-26-2023 Behavioral Health Screening Behavioral Health Screening [facility] Start: 05-27-2023 Covid-19 Vaccine ( season) Covid-19 Vaccine ( season) [facility] Start: 05-12-2022 CHLAMYDIA SCREENING (18-) CHLAMYDIA SCREENING (18-24) [facility] Start: 05-12-2022 GC (GONORRHEA) SCREE NUNU (18-24) GC (GONORRHEA) SCREENING (18-24) [facility] Start: 06-09-2016 HPV Vaccine (2 - 3-d ose series) HPV Vaccine (2 - 3-dose series) [facility] Start: 2012 PEDS TO ADULT TRANSI TION ANNUAL ASSESSMENT PEDS TO ADULT TRANSITION ANNUAL ASSESSMENT [facility] Start: 2010 Adult depression screening assessment DEPRESSION SCREENING [facility] Start: 2010 PEDS TO ADULT TRANSI TION INITIAL DISCUSSION PEDS TO ADULT TRANSITION INITIAL DISCUSSION [facility] Start: 2009 HPV VACCINE (1 - 2-d ose series) HPV VACCINE (1 - 2-dose series) [facility] Start: 2008 MENINGOCOCCAL B: Consider based on risk (1 of 2 - Risk Bexsero 2-dose series) MENINGOCOCCAL B: Consider based on risk (1 of 2 - Risk Bexsero 2-dose series) [facility] Bacteria identified in Urine by Culture URINE CULTURE Microbiology Routine Urinary frequency Ordered: 02/25/2024 [facility] Work Phone: Comment on above: Ordered: 02/25/2024 BACTERIAL VAGINOSIS NAAT BACTERI AL VAGINOSIS NAAT Lab Routine Vaginal burning Ordered: 02/25/2024 [facility] Comment on above: Ordered: 02/25/2024 ANALISA/TRICHOMONAS NAAT ANALISA /TRICHOMONAS NAAT Lab Routine Vaginal burning Ordered: 02/25/2024 [facility] Comment on above: Ordered: 02/25/2024 NEXPLANON INSERTION NEXPLANON IN SERTION Procedures Routine Encounter for initial prescription of implantable subdermal contraceptive Ordered: 01/26/2022 [facility] Work Phone: Comment on above: Ordered: 01/26/2022 NEXPLANON INSERTION NEXPLANON IN SERTION Procedures Routine Insertion of implantable subdermal contraceptive Ordered: 02/17/2022 [facility] Work Phone: Comment on above: Ordered: 02/17/2022 Patient Education ED Chest Pain, Noncardiac ED Gastritis (Adult) [facility] Work Phone: Patient referral [facility] Immunizations Immunization Date Immunization Notes Care Provider Ray dao 09-23-2021 tetanus toxoid, redu herman diphtheria toxoid, and acellular pertussis vaccine, adsorbed Aiden Acevedo MD Work Phone: [facility] 06-09-2021 influenza, injectabl e, quadrivalent, contains preservative Aiden Acevedo MD Work Phone: [facility] 02-25-2021 COVID-19 vaccine, fu ll dose (MODERNA) Aiden Acevedo MD Work Phone: [facility] Work Phone: 01-30-2021 COVID-19 vaccine, fu ll dose (MODERNA) Aiden Acevedo MD Work Phone: [facility] Work Phone: Payers Date Payer Category Payer Self-pay 2024 Unknown [id number] 2024 Unknown [employer] PPO [id number] 2024-Present [phone] [address] [place] [address] PPO [id number] 2021 Unknown [employer] PPO OOS [id number] 2021-Present [phone] [address] [place] [address] PPO [id number] 2020 Medicaid [id number] 1998 Unknown [id number] 51 1998 Unknown [id number] 51 1998 Unknown [id number] 51 Blue Cross Blue Shield [id number] Medicaid [id number] Unknown [id number] Unknown [id number] 62 Unknown [id number] 62 Unknown [id number] 62 Unknown [id number] 62 Unknown [id number] 62 Unknown [id number] 62 Unknown [id number] 62 Social History Date Type Detail Facility Start: 05-18-2016 End: 02-25-2024 Tobacco smoking status NHIS Never smoked tobacco [facility] Work Phone: Start: 05-18-2016 End: 02-25-2024 Tobacco use and exposure Smokeless tobacco non-user [facility] Work Phone: Start: 12-15-2021 End: 02-25-2024 Alcohol intake Current non-drinker of alcohol (finding) [facility] Start: 04-09-2021 Education 13 [facility] Start: 2000 Sex Assigned At Not on file [facility] Start: 11-28-2021 End: 12-08-2021 Exposure to SARS-CoV-2 (event) Not sure [facility] Start: 10-12-2022 End: 02-25-2024 History of Social function [facility] Start: 10-12-2022 End: 02-25-2024 Tobacco use panel [facility] The thought of lorena mansfield myself has occurred to me Never [facility] National Score (1-10 0), lower number is lower risk 51 [facility] Start: 09-30-2024 End: 09-30-2024 Tobacco smoking status KYIS Smokes tobacco daily (finding) [facility] Start: 12-04-2024 Sex Female (finding) [facility] Start: 2000 Sex Assigned At Female [facility] Clinical Notes 10-26-2021 to 07-17-2025 Note Date & Type Note Facility 07-17-2025 Progress note [facility] 11-22-2024 Nuclear medicine Diagnostic study note [facility] Imaging Services [address] [place] [address] Gastric Emptying Study MR#: [id number] Acct: [id number] Name: MERCED TORREZ Rep #: [id number] : 2000 F 24 From: Humberto Abreu MD PCP: Janine Castillo PA-C Status: REG C LI Study:Gastric Emptying Study Date of Exam: 11/22/24 Exam# [id number] Ordering Dr: Sandra Meyer PROCEDURE: GASTRIC EMPTYING STUDY REASON FOR EXAM: Nausea. Early satiety. TECHNIQUE: The patient ingested a mixture of sulfur colloid in oatmeal. Imaging was obtained. RADIOPHARMACEUTICAL: 1.1 mCi of technetium labeled sulfur colloid. COMPARISON: None. FINDINGS: Half of the ingested radiopharmaceutical exited the stomach at 90 minutes. Thisis abnormal. NM/Gastric Emptying Study IMPRESSION: Abnormal gastric emptying study. Reading Location: [id number] CC: LEIGHANN Castillo; BHAVYA Silverman ~ Space Technologist: Signed [facility] 08-16-2024 Evaluation note Diagnosis Onset Date Resolution Lipoma of back acute July 282023 1:05pm Diarrhea acute October 18, 2024 10:49am Nausea & vomiting acute October 18, 2024 10:49am Abdominal symptoms noneactive Januar y 2024 10:49am [facility] Work Phone: 1(179) 626-581406-02-2024 Telephone encounter Note* Telephone Encounter - Rose Ordonez LPN - 02/26/2024 8:28 AM EDT Patient given results and verbalized understanding of instructions given. Rose Ordonez LPN [facility]06-02-2024 Miscellaneous Notes* Telephone Encounter - Rose Ordonez LPN - 02/26/2024 8:28 AM EDT Patient given results and verbalized understanding of instructions given. Rose Ordonez LPN * Telephone Encounter - Mendez Millan APRN.CNP - 02/26/2024 8:11 AM EDT Please notify bv, yeast, trich negative so far. Culture still pending. [facility] Telephone encounter Note * Telephone Encounter - Mendez Millan APRN.DAE - 02/26/2024 8:11 AM EDT Please notify bv, yeast, trich negative so far. Culture still pending. [facility] Work Phone: 1(218) 382-532806-01-2024 History of Present illness Narrative* Adelaide Acevedo APRN.CNP - 02/25/2024 11:38 AM EDT Images from the original note were not included. Subjective Patient came in with complaints of burning while urinating and while sitting. Patient says it has been going on for the past day or so. Patient denies any risks for STDs. Patient denies any vaginal discharge or odor. Patient says she has a little bit of pain in her lower abdomen. She denies any other symptoms. The history is provided by the patient. No nurse case manager was used. Review of Systems Constitutional: Negative. Skin: Negative. Objective Physical Exam Exam conducted with a parts consultant present. Constitutional: Appearance: Normal appearance. Pulmonary: Effort: Pulmonary effort is normal. Abdominal: General: Abdomen is flat. Palpations: Abdomen is soft. Comments: Mild tenderness in the area marked above when palpated. Genitourinary: Pubic Area: No rash or pubic lice. Labia: Right: No rash, tenderness, lesion or injury. Left: No rash, tenderness, lesion or injury. Comments: Cervical motion tenderness was negative. Neurological: Mental Status: She is alert. PAST MEDICAL HISTORY Diagnosis Date Anemia Depression PAST SURGICAL HISTORY Procedure Laterality Date ADENOIDECTOMY PRIMARY <AGE 10 Adenoidectomy DELIVERY ONLY 12/15/2021 LTCS DELIVERY ONLY 01/25/2020 NEXPLANON INSERTION Left 06/2016 has been removed ALLERGIES Patient has no known allergies. MEDICATIONS ALPRAZolam (XANAX) 0.25 mg tablet etonogestrel (NEXPLANON) subdermal implant 68 mg 1 Each by SUBDERMAL route as directed. venlafaxine ER (EFFEXOR XR) 75 mg 24 hr capsule Take 75 mg by mouth once daily. acetaminophen (TYLENOL) 325 mg tablet Take 650 mg by mouth every 6 hours as needed. etonogestrel subdermal implant 68 mg (NEXPLANON) 1 Each by SUBDERMAL route one time only for 1 dose. FAMILY HISTORY Problem Relation Age of Onset No Known Problems Mother No Known Problems Father No Known Problems Sister No Known Problems Sister No Known Problems Sister Heart Maternal Grandmother Brain Cancer Maternal Grandfather Heart Maternal Grandfather No Known Problems Paternal Grandmother Heart Paternal Grandfather Heart issues on paternal side of family No Known Problems Son Social History Tobacco Use Smoking status: Never Smokeless tobacco: Never Vaping Use Vaping Use: Former Quit date: 01/08/2021 Substance Use Topics Alcohol use: No Drug use: No ASSESSMENT/PLAN: 1. Urinary frequency - ICD9: 788.41, ICD10: R35.0 (primary diagnosis) - UA DIP, URINE (POC) - URINE CULTURE - NITROFURANTOIN MONOHYDRATE & MACROCRYSTAL 100 MG ORAL CAP 2. Vaginal burning - ICD9: 625.8, ICD10: N94.9 - ANALISA/TRICHOMONAS NAAT - BACTERIAL VAGINOSIS NAAT - NYSTATIN-TRIAMCINOLONE 100,000 UNIT/GRAM-0.1 % TOPICAL OINTMENT Did not want chlamydia and gonorrhea tested. If patient pulls positive for anything please treat accordingly. Patient was okay with this care plan. Adelaide Acevedo APRN.DAE documented in this encounterK[facility]05-25-2022 Instructions* Patient Instructions* Jimena Panchal LPN - 02/17/2022 11:46 AM EDT NEXPLANON PATIENT EDUCATION You may remove dressing in 24 hours. Expect some bruising around insertion site. You may take over the counter pain medication (i.e. Tylenol, motrin, advil, etc) if you have discomfort. Call your provider with excessive bruising or pain. Continue to use condoms for STD prevention. You should use backup contraception for 7 days to prevent . documented in this encounterK[facility]05-25-2022 History of Present illness Narrative* Cherie Robertson MD - 02/17/2022 11:45 AM EDT Merced is a 21 year old patient who presents for Nexplanon insertion. Patient's last menstrual period was 03/10/2021 (exact date). VITALS: LMP 03/10/2021 test: negative Nexplanon lot #: [id number] Exp date: 03/26/2024 UNIVERSAL PROTOCOL / SAFETY CHECKLIST Procedure to be Performed: Nexplanon insertion Sign In: A Moment of CARE was completed. Personnel directly involved with the procedure wore the appropriate PPE (Personal Protective Equipment). Patient/Surrogate Stated/Verified: PATIENT VERIFIED(optional for EMERGENT procedures): Patient name, Date of , Relevant allergies and The intended procedure Time Out Communication: Intended patient and procedure match the source documents. Consent documented and matches the intended procedure. Sign Out: SIGN OUT (optional for EMERGENT procedures): No specimen collected. Jimena Panchal LPN TECHNIQUE: Patient placed in supine position with left) bent at the elbow and placed over the head. Skin cleansed with betadine. 3mL of 1% lidocaine with 1:100,000 epi injected subQ along insertion site. Nexplanon mary inserted under sterile technique. After insertion by the provider, the mary was palpable under the skin by both patient and provider. Steristrips and sterile pressure dressing applied. A&P: Nexplanon inserted without complications. Patient user card was filled out and given to the patient. The patient was instructed to remove the dressing after 24 hours. Advised to use backup contraception for 7 days. Cherie Scott MD documented in this encounterK[facility]05-04-2022 Miscellaneous Notes* Telephone Encounter - Christina Tran RN - 01/27/2022 2:17 PM EDT Patient returning to work 02/01/22. Letter created and faxed to number listed below. Christina Tran RN * Telephone Encounter - Onelia Arnett - 01/27/2022 1:24 PM EDT Patient called in requesting that a letter for return to work be faxed to [facility] at [phone]. documented in this encounterK[facility]05-03-2022 History of Present illness Narrative* Cherie Robertson MD - 01/26/2022 2:47 PM EDT VISIT Merced Echevarria is a 21 year old year old here for visit. Delivery Summary: Cs ROS/ Recovery: Feeding: Breast and bottle feeding problems: None Menses since delivery: spotting Menstrual pattern prior to : Regular periods Ila since delivery: Not resumed Depression: denies symptoms of depression. OB Depression and Anxiety Screening- This Encounter (since 01/25/2022) Over the past 2 weeks have you felt down, depressed, or hopeless? Negative Over the past two weeks, have you felt little interest or pleasure in doing things? Negative Feeling nervous, anxious or on edge 0-Not at all Not being able to stop or control worrying 0-Not al all Anxiety Pre-Screening Total (If >/= 3 additional questions will be reviewed) 0 Emotional support: Yes Bowel symptoms: Negative for abdominal discomfort, blood in stools or black stools and change in bowel habits Abdomen: She reports no incisional redness, tenderness, erythema Bladder symptoms: No dysuria, gross hematuria, urinary frequency, urinary urgency, or incontinence Other issues: None Last Pap: 2020 normal HPV: N/A PAST MEDICAL HISTORY Diagnosis Date Anemia Depression PAST SURGICAL HISTORY Procedure Laterality Date ADENOIDECTOMY PRIMARY <AGE 10 Adenoidectomy DELIVERY ONLY 12/15/2021 LTCS DELIVERY ONLY 01/25/2020 NEXPLANON INSERTION Left 06/2016 has been removed FAMILY HISTORY Problem Relation Age of Onset No Known Problems Mother No Known Problems Father No Known Problems Sister No Known Problems Sister No Known Problems Sister Heart Maternal Grandmother Brain Cancer Maternal Grandfather Heart Maternal Grandfather No Known Problems Paternal Grandmother Heart Paternal Grandfather Heart issues on paternal side of family No Known Problems Son Social History Tobacco Use Smoking status: Never Smoker Smokeless tobacco: Never Used Vaping Use Vaping Use: Former Quit date: 01/08/2021 Substance Use Topics Alcohol use: No Drug use: No PHYSICAL EXAMINATION: BP 100/62 Wt 145 lb (65.8kg) LMP 03/10/2021 GENERAL: pleasant, female in no apparent distress HEENT: Normocephalic, atraumatic, mucus membranes moist and no lesions NECK: Supple, full range of motion, no adenopathy and thyroid normal DERMATOLOGY: Normal, without lesions, non-icteric and non-hirsute BREAST: soft, non-tender, symmetric, no dominant mass, normal nipple-areolar complex, no lymphadenopathy and no nipple discharge ABDOMEN: soft, non-tender and no masses. INCISION: No incisional redness, swelling, or drainage PELVIC: external genitalia normal, normal Bartholin's glands, urethra, Du Quoin's glands, no vulvar lesions, no cervical lesions, good vaginal support, physiologic discharge present, normal appearing perineal body and perianal region BIMANUAL: uterus normal size, shape and consistency, no adnexal masses and non-tender NEURO: alert and oriented x3,exam grossly non-focal EXTREMITIES: normal ASSESSMENT AND PLAN: 21 year old status post CS with normal course. Contraception plan: nexplanon Follow up: RTC for annual exams and PRN, nexplanon insertion 1-2 weeks Cherie Scott MD documented in this encounterK[facility] Hospital03-29-2022 History of Present illness Narrative* Cherie Robertson MD - 12/22/2021 3:04 PM EDT EARLY VISIT Merced Echevarria is a 21 year old here for 1 week visit. Delivery Summary: CS ROS: General: Denies any fever or chills Hypertension Screening: Headache? Yes. Was it successfully treated with Tylenol? yes Visual Changes? No Mood: normal Depression: denies symptoms of depression. OB Depression and Anxiety Screening- This Encounter (since 12/21/2021) Over the past 2 weeks have you felt down, depressed, or hopeless? Negative Over the past two weeks, have you felt little interest or pleasure in doing things? Negative Feeling nervous, anxious or on edge 0-Not at all Not being able to stop or control worrying 0-Not al all Anxiety Pre-Screening Total (If >/= 3 additional questions will be reviewed) 0 Feeding: Breast feeding problems: None Bladder: No dysuria, gross hematuria, urinary frequency, urinary urgency, or incontinence Bowel symptoms: Negative for abdominal discomfort, blood in stools or black stools and change in bowel habits Abdomen: She reports no incisional redness, tenderness, erythema Bleeding: light flow Bottom and Perineum: No issues Sleep: no sleep concerns, feels rested Ila since delivery: Not resumed Emotional support: Yes Exercise: N/A Other issues: None PHYSICAL EXAMINATION: BP 110/76 Wt 149 lb (67.6 kg) LMP 03/10/2021 (Exact Date) Yes General: pleasant,female in no apparent distress, A&O x 3. Skin warm and intact. Breast: Deferred Abdomen: Deferred /Incision: No incisional redness, swelling, or drainage, mild induration around left side- no erythema no active drainage. Pelvic: Deferred Bimanual: Deferred ASSESSMENT AND PLAN: 1. 21 year old status post CS with normal course. 2. Contraception plan: not applicable. Reinforced 6-week pelvic rest. Encouraged condom usage should patient deviate. 3. Education: resources provided - see MA/RN note 4. Follow up: Return to Clinic for 6 week visit and as needed Medical Decision Making Cherie Scott MD documented in this encounterK[facility] Hospital03-25-2022 Miscellaneous Notes* Telephone Encounter - Piper Velasco RN - 12/18/2021 3:48 PM EDT Patient notified. Piper Velasco RN * Telephone Encounter - Aiden Acevedo MD - 12/18/2021 3:44 PM EDT Agree with recommendation of regular use of tylenol & NSAIDs. Additional oxycodone sent in. Aiden Acevedo MD * Telephone Encounter - Piper Velasco RN - 12/18/2021 1:25 PM EDT Patient delivered via on 12/15/21. Asking for more Oxycodone. Has 3 tablets left and is about to take one of those when she gets home. Incisional pain rate of 8 out of 10. Burning sensation.Inquired if patient was alternating with NSAIDS. States she is taking Tylenol along with the Oxycodone about every 6 hours. Not taking NSAIDS. Patient uses [facility] in [place] pharmacy. Piper Velasco RN documented in this encounterKet[facility] Hospital03-22-2022 History of Present illness Narrative* Christina Tran RN - 12/15/2021 3:59 PM EDT Patient delivered via repeat by Dr. Acevedo on 12/15/21 at [facility]. See OB history. Christina Tran RN documented in this encounterKet[facility] Hospital01-31-2022 History of Past illness Narrative* Problem Noted Date Resolved Date Supervision of other high risk pregnancies, thir d trimester 10/26/2021 01/26/2022 COVID-19 affecting in third trimester 10/26/2021 01/26/2022 Overview: 10/26/21-NSTs starting at 36 weeks. Minda Carlos APRN.CNM UTI (urinary tract infection) in , ante 08/13/2021 01/26/2022 Overview: Went to [facility] on 08/01/21 and treated for UTI. SW History of prior with IUGR 04/202101/26/2022 with history of section, ante 04/09/2021 01/26/2022 Overview: 04/09/2021 Patient has a history of a done by Dr. Ahuja at [facility]. She desires a . I have asked patient to obtain her operative report and have it faxed here by her next appointment. I have attempted to order EMMIs on and but patient is not active on my chart and was to have activated it by the end of the day today and she has not.TKRN Patient request for diagnostic testing 01/26/2022 Overview: 04/09/2021.Patient desires nuchal ultrasound. Declines genetic carrier screening testing.Alma Ledbetter RN documented as of this encounter (statuses as of 01/26/2022) [facility] History of Past illness Narrative* Problem Noted Date Resolved Date Supervision of other high risk pregnancies, thir d trimester 10/26/2021 01/26/2022 COVID-19 affecting in third trimester 10/26/2021 01/26/2022 Overview: 10/26/21-NSTs starting at 36 weeks. Minda Carlos APRN.BRADYM UTI (urinary tract infection) in , ante 08/13/2021 01/26/2022 Overview: Went to [facility] on 08/01/21 and treated for UTI. SW History of prior with IUGR 04/202101/26/2022 with history of section, ante 04/09/2021 01/26/2022 Overview: 04/09/2021 Patient has a history of a done by Dr. Ahuja at [facility]. She desires a . I have asked patient to obtain her operative report and have it faxed here by her next appointment. I have attempted to order EMMIs on and but patient is not active on my chart and was to have activated it by the end of the day today and she has not.TKRN Patient request for diagnostic testing 01/26/2022 Overview: 04/09/2021.Patient desires nuchal ultrasound. Declines genetic carrier screening testing.Alma Ledbetter RN documented as of this encounter (statuses as of 01/27/2022) [facility] History of Past illness Narrative* Problem Noted Date Resolved Date Supervision of other high risk pregnancies, thir d trimester 10/26/2021 01/26/2022 COVID-19 affecting in third trimester 10/26/2021 01/26/2022 Overview: 10/26/21-NSTs starting at 36 weeks. Minda Carlos APRN.BRADYM UTI (urinary tract infection) in , ante 08/13/2021 01/26/2022 Overview: Went to [facility] on 08/01/21 and treated for UTI. SW History of prior with IUGR 04/202101/26/2022 with history of section, ante 04/09/2021 01/26/2022 Overview: 04/09/2021 Patient has a history of a done by Dr. Ahuja at [facility]. She desires a . I have asked patient to obtain her operative report and have it faxed here by her next appointment. I have attempted to order EMMIs on and but patient is not active on my chart and was to have activated it by the end of the day today and she has not.TKRN Patient request for diagnostic testing 01/26/2022 Overview: 04/09/2021.Patient desires nuchal ultrasound. Declines genetic carrier screening testing.Alma Ledbetter RN documented as of this encounter (statuses as of 02/17/2022) [facility] Diagnosis Postoperative state- Primary Other postprocedural status documented [facility] this encounter [facility]* Diagnosis care and examination immediately after delivery- Primary [facility] Diagnosis care and examination- Primary Routine follow-up Encounter for initial prescription of implantable subdermal contraceptive [facility] Diagnosis Insertion of implantable subdermal contraceptive- Primary [facility] Diagnosis Urinary frequency- Primary Vaginal burning Other specified symptom associated with female genital organs documented [facility] this encounter [facility]* Diagnosis Onset Date Resolution Status Admit Date Abdominal pain acute July 172024 8:26am Diarrhea acute July 17, 2025 8:26am Nausea & vomiting acute July 17, 2025 8:26am [facility] Work Phone: Progress note Author Sandra Meyer [facility] Note Date/Time July 17, 2025 9 :45am [facility] [address] [place] [address] OFFICE VISIT Date of Service: 07/17/25 MR#: [id number] Acct: [id number] Name: MERCED TORREZ TANISHA Rep #: [id number] : 2000 Provider: BHAVYA Silverman Age/Sex: 24/F Location: [facility] Status: Signed Intake Vital Signs 09/30/24 08:18 Height 5 ft 3 in Intake Visit Reasons: ABDOMINAL ISSUES Chief Complaint: nausea and diarrhea [employer]re [employer] Required: No Accompanied by: Daughter Is patient in pain?: No Allergies No Known Allergies Allergy (Verified 07/17/25 08:33) Medications ?Medication ?Instructions ?Recorded ?Confirmed ?Type alprazolam 0.25 mg tablet 0.25 mg PO TID PRN anxiety 1 07/17/25 History ondansetron 4 mg disintegrating 4 mg PO Q8H #20 tabs 1 07/17/25 Rx tablet pantoprazole 40 mg tablet,delayed 40 mg PO QDAY #30 ta bs 07/17/25 07/17/25 [facility] History of prior with IUGR Anxiety Depression Surgical History S/P laparoscopic cholecystectomy Previous section Social History Smoking Status: Current every day smoker tobacco type: cigarettes alcohol intake: never HPI HPI Chief Complaint: nausea and diarrhea Details: MERCED TORREZ, is a 24 F who presents to the office today for follow-up. [facility] ED 1.7.25 with chest pain after being sick with vomiting, diarrhea, congestion and cough for two days. Work up unremarkable. GI cocktail with resolution of symptoms. BGI established 1..25 following ED visit. Pt has had new Gi issues over the past four months. She has daily nausea and vomiting a few times per week. This not associated with eating. She does use marijuana 3 times per day. She does notfeel hungry and has been losing weight. She is also having diarrhea daily up to 7 times per day. She has not had any improvements in her symptoms since startingthe omeprazole. Zofran has helped with her nausea. She is never having a formed stool. This has been on going for 4 months. She has been losing with a 10-15 lbsweight loss over this time. She denies any lifestyle, medication or diet changesaround the time this started. She is s/p cholecystectomy in 2022. Increased omeprazole to 40 mg daily, encouraged marijuana cessation, Zofran as needed and stool testing. Gastric emptying study 11/22/2024: Abnormal Stool 10/30/2024: Elastase normal, Giardia negative enteric pathogen negative C. difficile canceled, calprotectin 106 OV 07/16/2025 patient continues to have daily nausea and intermittent vomiting. She is vomiting 1-2 times per week. She has no appetite and has lost about 5 pounds over the past few months. She has epigastric pain that she describes as heavy . Patient having sporadic bowel movements sometimes a few times per dayand other times she will go for a few days. She discontinued omeprazole. Zofran was helpful for the nausea. She feels like symptoms may have started after her cholecystectomy. ROS Const Constitutional: Positive for fatigue, headache(s) and weight change (loss); No fever(s) ENT ENT: Positive for headache(s) and difficulty swallowing Gastro GI: Positive for abdominal pain, bloating, change in bowel habits, constipation,diarrhea, difficulty swallowing, nausea/dyspepsia and vomiting; No belching, change in stool character, coffee ground emesis, cramping, heartburn, feeling full early, excessive flatus, incontinent of stools, Vomitingblood/hematemesis, Blood in stool, loose stools, Black,tarry stools, pain with swallowing or other Musc Musculoskeletal: Positive for muscle weakness; No joint pain Skin Skin: No yellowing of the eye or itchy eyes Neuro Neurology: Positive for headache(s) Psych Psychiatric: No anxiety and No depression Endo Endocrine: Positive for fatigue and weight change (loss) Aller/Imm Allergy/Immunologic: No itchy eyes Sohail/Lymp Hematologic/Lymphatic: Positive for easy bruising; No easy bleeding Exam Const General: cooperative and comfortable Nutritional Appearance: average body habitus Orientation: alert [facility] Head: normal to inspection Ears: hearing grossly normal bilaterally Eyes General: appearance normal, both eyes and all related structures Neck Neck: normal visual inspection Chest Chest palpation & inspection: normal inspection of the chest Resp Effort & Inspection: normal respiratory effort GI Inspection: normal to inspection Assessment and Plan Assessment and Plan (1) Diarrhea: Status: Acute Plan: Flory is a 24-year-old female patient here today for follow-up regarding her nausea, vomiting and abnormal bowel habits. Workup thus far has included gastric emptying study which was abnormal. Stool testing showing a borderline elevated calprotectin but otherwise normal. She decreased her marijuana use andfollowed a gastroparesis diet. This worked for a few months however she is now having daily nausea and 1-2 episodes of vomiting per day. She describes associated epigastric pain. She feels the symptoms may have started after her cholecystectomy in 2022. She may have bile acid reflux. She will undergo EGD for assessment of her upper GI tract. In the interim she will restart PPI and take Zofran as needed. Will repeat calprotectin and recommended a fiber supplement. - EGD - Restart PPI - Zofran as needed - Start fiber supplement - Repeat calprotectin - Follow-up after procedure Note: [employer] speech recognition valve seater operator software was used to create portions of this document. Sound-alike and misspelled words, as well as other valve seater operator errors may be contained in the documentation. (2) Nausea & vomiting: Status: Acute (3) Abdominal pain: Status: Acute Orders: Orders Calprotectin, Stool Today R19.7 - Diarrhea, unspecified Medications: New pantoprazole 40 mg PO QDAY 30 tabs 2RF ondansetron 4 mg PO Q8H 20 tabs 2RF Coding Level of Care Code Off vis,est,level 4 Diagnoses Diarrhea R19.7 Nausea & vomiting R11.2 Abdominal pain R10.9 07/17/25 6710 <Electronically signed by Sandra LATIF> Date _ Sandra LATIF Cosigner Signature: Date (if applicable) CC: ~ [place] [employer] Work Phone: Reason for referral (narrative)* Outpatient Procedure (Routine) - Pending Review Specialty Diagnoses / Procedures Referred By Aureliano springer Referred To Contact [facility] Diagnoses Encounter for initial prescription of implantable subdermal contraceptive Procedures NEXPLANON INSERTION ETONOGESTREL IMPLANT SYSTEM INSERT DRUG IMPLANT DEVICE Cherie Fontenot MD [address] [place] [address] [address] Referral ID Status Reason Start Date Expiration Date Visits Requested Visits Authorized [id number] Pending Review Auto-Generat ed Referral 01/26/2022 01/26/2023 1 [facility] Outpatient Procedure (Routine) - Pending Review Specialty Diagnoses / Procedures Referred By Aureliano springer Referred To Contact [facility] Diagnoses Insertion of implantable subdermal contraceptive Procedures NEXPLANON INSERTION ETONOGESTREL IMPLANT SYSTEM INSERT DRUG IMPLANT DEVICE Cherie Fontenot MD [address] [place] [address] [address] Referral ID Status Reason Start Date Expiration Date Visits Requested Visits Authorized [id number] Pending Review Auto-Generat ed Referral 02/17/2022 02/17/2023 1 [facility]No reason for referral [facility] Work Phone: Summary Purpose Family History No Family History Records FoundNo Family History Records FoundNo Family History Records FoundNo Family History Records FoundNo Family History Records FoundNo Family History Records FoundNo Family History Records FoundNo Family History Records Found Advance Directives No Advanced Directives Records Found Advance Directive Response Recorded Date/ Time Living Will No July 20 1:04pm Power of Staff Technologist No July 20, 2024 1:04pm Living Will No September 30 9:31am Power of Staff Technologist No Constanza 5th, 2 025 9:31am Medications Administered Section Inactive Administered Medications - up to 3 most recent administrations Medication Order MAR Action Action Date Dose Rate Site etonogestrel subdermal implant 68 mg (NEXPLANON) 68 mg, SUBDERMAL, ONCE (UP TO 30 DAYS AMB), 1 dose, On 02/17/22 at 1200, Hazardous Potential Reproductive Risk Drug: Use appropriate PPE. Must be inserted subdermally in the upper arm by a trained healthcare provider. Given 02/17/2022 12:14 PM EDT 68 mg Left Chief Complaint and Reason for Visit Chief Complaint Admit Date EXCISION OF LIPOMA ON BACK July 1:05pm sob September 30, 2024 8: 17am Abdominal complaints October 18, 2024 10:49am N/V November 22, 2024 12:48pm Reason for Visit Admit Date Lipoma of back August 16, 2024 1:05pm Diarrhea October 18, 2024 1 0:49am Nausea & vomiting October 18, 2024 1 0:49am Abdominal symptoms October 18, 2024 1 0:49am Chief Complaint Admit Date ABDOMINAL ISSUES July 17, 2025 8 :26am Reason for Visit Admit Date Abdominal pain July 17, 2025 8 :26am Diarrhea July 17, 2025 8 :26am Nausea & vomiting July 17, 2025 8 :26am Additional Source Comments INFORMATION SOURCE (unrecogn ized section and content) DATE CREATED AUTHOR 03/21/2018 [facility] DATE CREATED AUTHOR AUTHOR'S ORGANIZ ATION 09/25/2020 [facility] DATE CREATED AUTHOR AUTHOR'S ORGANIZ ATION 01/23/2021 [facility] DATE CREATED AUTHOR AUTHOR'S ORGANIZ ATION 07/29/2021 [facility] DATE CREATED AUTHOR AUTHOR'S ORGANIZ ATION 11/13/2022 [facility] DATE CREATED AUTHOR AUTHOR'S ORGANIZ ATION 07/02/2025 [facility] DATE CREATED AUTHOR AUTHOR'S ORGANIZ ATION 07/19/2025 [facility] DATE CREATED AUTHOR AUTHOR'S ORGANIZ ATION 08/03/2025 [facility] Source Comments (unrecognize d section and content) In the event this informatio n is protected by the Federal Confidentiality of Alcohol and Drug Abuse Patient Records regulations: The Federal rules restrict any use of the information to criminally investigate or prosecute any alcohol or drug abuse patient.[facility] the event this information is protected by the Federal Confidentiality of Alcohol and Drug Abuse Patient Records regulations: The Federal rules restrict any use of the information to criminally investigate or prosecute any alcohol or drug abuse patient.[facility] the event this information is protected by the Federal Confidentiality of Alcohol and Drug Abuse Patient Records regulations: The Federal rules restrict any use of the information to criminally investigate or prosecute any alcohol or drug abuse patient.[facility] the event this information is protected by the Federal Confidentiality of Alcohol and Drug Abuse Patient Records regulations: The Federal rules restrict any use of the information to criminally investigate or prosecute any alcohol or drug abuse patient.[facility] the event this information is protected by the Federal Confidentiality of Alcohol and Drug Abuse Patient Records regulations: The Federal rules restrict any use of the information to criminally investigate or prosecute any alcohol or drug abuse patient.[facility] Hospital[facility] the event this information is protected by the Federal Confidentiality of Alcohol and Drug Abuse Patient Records regulations: The Federal rules restrict any use of the information to criminally investigate or prosecute any alcohol or drug abuse patient.[facility] the event this information is protected by the Federal Confidentiality of Alcohol and Drug Abuse Patient Records regulations: The Federal rules restrict any use of the information to criminally investigate or prosecute any alcohol or drug abuse patient.[facility] the event this information is protected by the Federal Confidentiality of Alcohol and Drug Abuse Patient Records regulations: The Federal rules restrict any use of the information to criminally investigate or prosecute any alcohol or drug abuse patient.[facility] Reason for Visit (unrecogniz ed section and content) Reason Comments Ob Delivery Note Reason Comments Care Reason Comments Care Reason Comments Letter Reason Comments NEXPLANON INSERTION Specialty Diagnoses / Procedures Referred By Aureliano springer Referred To Contact [facility] Diagnoses Encounter for initial prescription of implantable subdermal contraceptive Encounter for surveillance of implantable subdermal contraceptive Procedures NEXPLANON INSERTION ETONOGESTREL IMPLANT SYSTEM INSERT DRUG IMPLANT DEVICE REMOVAL NON-BIODEGRADABLE DRUG DELIVERY IMPLANT Cherie Fontenot MD [address] [place] [address] [facility] [address] [place] [address] Referral ID Status Reason Start Date Expiration Date Visits Requested Visits Authorized [id number] Authorized Auto-Generat ed Referral 02/03/2022 05/06/2022 2 2 Reason Comments Urinary Problem Burning and blood in urine x1 day Reason Comments Results Care Teams (unrecognized sec tion and content) Tube Bender Relationship Specialty Start Date End Date Janine Castillo PA [address] [place], [place] [id number] PCP - General Family Practice 10/07/21 Tube Bender Relationship Specialty Start Date End Date Janine Castillo PA [address] [place], [place] [address] PCP - General Family Practice 10/07/21 Tube Bender Relationship Specialty Start Date End Date Janine Castillo PA [address] [place] [address] PCP - General Family Practice 10/07/21 Tube Bender Relationship Specialty Start Date End Date Janine Castillo PA [address] [place] [id number] PCP - General Family Practice 10/07/21 Tube Bender Relationship Specialty Start Date End Date Janine Castillo PA [address] [place] [address] PCP - General Family Practice 10/07/21 Tube Bender Relationship Specialty Start Date End Date Janine Castillo PA [address] [place] [address] PCP - General Family Practice 10/07/21 Tube Bender Relationship Specialty Start Date End Date Janine Castillo PA-C PCP - General Family Medicine 10/07/21 Tube Bender Relationship Specialty Start Date End Date Janine Castillo PA-C PCP - General Family Medicine 10/07/21 Team Status: Active Member Role Status Dates Janine LATIF, PA-C Primary Care Provider Active Team Status: Inactive Member Role Status Dates Janinearavind LATIF, PA-C Primary Care Provider Active Start: August 16, 2024 End: August 16, 2024 Janine Hills PA, PA-C Referring Provider Active Start: August 16, 2024 End: August 16, 2024 Dr. Taylor Ty MD Attending Provider Active Start: August 16, 2024 End: August 16, 2024 Team Status: Inactive Member Role Status Dates Janinearavind LATIF, PA-C Primary Care Provider Active Start: September 30, 2024 End: September 30, 2024 Dr. Tonia Hernandez DO Attending Provider Active Start: September 30, 2024 End: September 30, 2024 Dr. Tonia Hernandez DO Emergency Provider Active Start: September 30, 2024 End: September 30, 2024 Team Status: Inactive Member Role Status Dates Janine LATIF, PA-C Primary Care Provider Active Start: October 18, 2024 End: October 18, 2024 Janine LATIF, PA-C Referring Provider Active Start: October 18, 2024 End: October 18, 2024 BHAVYA Silverman Attending Provider Active Start: October 18, 2024 End: October 18, 2024 Team Status: Inactive Member Role Status Dates Janine Castillo PA, PA-C Primary Care Provider Active Start: October 25, 2024 End: October 25, 2024 BHAVYA Silverman Attending Provider Active Start: October 25, 2024 End: October 25, 2024 BHAVYA Silverman Referring Provider Active Start: October 25, 2024 End: October 25, 2024 Team Status: Inactive Member Role Status Dates Janine Anna LATIF PA-C Primary Care Provider Active Start: November 22, 2024 End: November 22, 2024 BHAVYA Silverman Attending Provider Active Start: November 22, 2024 End: November 22, 2024 BHAVYA Silverman Referring Provider Active Start: November 22, 2024 End: November 22, 2024 Team Status: Active Member Role/Relationship Status Dates Janine Anna BHAVYA PA-C Primary care physician Active Team Status: Inactive Member Role/Relationship Status Dates Janine Anna LATIF PA-C Primary care physician Active Start: July 17, 2025 End: July 17, 2025 Janine Anna LATIF PA-C Referring Provider Active Start: July 17, 2025 End: July 17, 2025 BHAVYA Silverman Attending physician Active Start: July 17, 2025 End: July 17, 2025 Goals (unrecognized section and content) Goals may be documented in a n alternate sectionGoals may be documented in an alternate section FOR RECORDS PERTAINING TO PATIENTS WHO ARE OR HAVE BEEN ENROLLED IN A CHEMICAL DEPENDENCY/SUBSTANCEABUSE PROGRAM, SOME INFORMATION MAY BE OMITTED. This clinical summary was aggregated from multiple sources. Caution should be exercised in using it in the provision of clinical care. This summary normalizes information from multiple sources, and as a consequence, information in this document may materially change the coding, format and clinical context of patient data. In addition, data may be omitted in some cases. CLINICAL DECISIONS SHOULD BE BASED ON THE PRIMARY CLINICAL RECORDS. [employer] provides no warranty or guarantee of the accuracy or completeness of information in this document.
[2025-08-15 08:00] LABS: Internal QC Validated? YES +Cl - CLEAR BKGD; Pregnancy, Urine Negative Negative; Record Kit Lot#,Urine Preg 980607
[2025-08-15] MEDS: Lactated Ringers 1,000 ML 15 ML IV (08:06)
--- NOTE | 2025-08-15 08:16 | HP.PCM_ITS ---
HPI - General General Date of Admission: 08/15/25 Date of Service: 08/15/25 HPI Narrative MERCED TORREZ, is a 24 F who presents [facility] Complaint: nausea and diarrhea [facility] ED 1..25 with chest pain after being sick with vomiting, diarrhea, congestion and cough for two days. Work up unremarkable. GI cocktail with resolution of symptoms. BGI established 1.23.25 following ED visit. Pt has had new Gi issues over the past four months. She has daily nausea and vomiting a few times per week. This not associated with eating. She does use marijuana 3 times per day. She does not feel hungry and has been losing weight. She is also having diarrhea daily up to 7 times per day. She has not had any improvements in her symptoms since starting the omeprazole. Zofran has helped with her nausea. She is never having a formed stool. This has been on going for 4 months. She has been losing with a 10-15 lbs weight loss over this time. She denies any lifestyle, medication or diet changes around the time this started. She is s/p cholecystectomy in 2022. Increased omeprazole to 40 mg daily, encouraged marijuana cessation, Zofran as needed and stool testing. Gastric emptying study 11/22/2024: Abnormal Stool 10/30/2024: Elastase normal, Giardia negative enteric pathogen negative C. difficile canceled, calprotectin 106 OV 07/16/2025 patient continues to have daily nausea and intermittent vomiting. She is vomiting 1-2 times per week. She has no appetite and has lost about 5 pounds over the past few months. She has epigastric pain that she describes as heavy . Patient having sporadic bowel movements sometimes a few times per day and other times she will go for a few days. She discontinued omeprazole. Zofran was helpful for the nausea. She feels like symptoms may have started after her cholecystectomy. Calprotectin, Stool Today R19.7 - Diarrhea, unspecified Medications: New pantoprazole 40 mg PO QDAY 30 tabs 2RF ondansetron 4 mg PO Q8H 20 tabs 2RF [ ] [facility] Medical History Wears contact lenses Wears glasses Marijuana use Easy bruising Migraine headache Smoker History of prior with IUGR Anxiety Depression Home Medications ?Medication ?Instructions ?Recorded ?Last Taken ?Type alprazolam 0.25 mg tablet 0.25 mg PO TID PRN anxiety 1 Unknown History pantoprazole 40 mg tablet,delayed 40 mg PO QDAY #30 ta bs 07/17/25 Unknown Rx release bupropion HCl 150 mg 24 hr tablet, 300 mg PO DAILY Unknown History extended release Allergy/AdvReac Type Severity Reaction Status Date / Time No Known Allergies Allergy Verified 08/15/25 07:55 Surgical History S/P laparoscopic cholecystectomy Previous section Social History Smoking Status: Current every day smoker tobacco type: e-cigarettes alcohol intake: never ROS Constitutional Constitutional: Denies fatigue, fever(s), poor appetite, weight gain or weight loss Gastrointestinal Gastrointestinal: Denies belching, bloating, change in bowel habits, change in stool character, chewing difficulty, coffee ground emesis, constipation, cramping, diarrhea, dyspepsia, dysphagia, early satiety, excessive flatus, fecal incontinence, heartburn, hematemesis, hematochezia, hemorrhoids, loose stools, melena, nausea, odynophagia, rectal bleeding, tenesmus, vomiting or weight changes Vital Signs Vital Signs Vital Signs: 08/15/25 07:56 08/15/25 07:56 08/15/25 07:56 Temperature 98.2 F Temperature Source Temporal Pulse Rate 69 Respiratory Rate 16 Respiratory Pattern Normal Blood Pressure 117/86 H Blood Pressure Mean 96 Blood Pressure Source Monitor Blood Pressure Position Semi-Fowlers Blood Pressure Location Right Arm Baseline BP 117/86 Pulse Ox 100 Oxygen Delivery Method Room Air Weight Weight: 114 lb 6.719 oz Body Mass Index (BMI) 20.2 Physical Exam Const alert, oriented x3, no apparent distress and healthy appearing General Appearance: cooperative GI normal to inspection, nondistended, normoactive bowel sounds, soft to palpation, non-tender and non-distended Percussion: normal to percussion Rectal Exam: deferred Results Lab / Micro Data Labs: Laboratory Results - last 24 hr 08/15/25 07:50: Urine Test Negative Assessment & Plan Assessment/Plan (1) Nausea & vomiting: (2) Abdominal pain: (3) Diarrhea: PLAN: Assessment and Plan Assessment and Plan (1) Diarrhea: Status: Acute Plan: Flory is a 24-year-old female patient here today for follow-up regarding her nausea, vomiting and abnormal bowel habits. Workup thus far has included gastric emptying study which was abnormal. Stool testing showing a borderline elevated calprotectin but otherwise normal. She decreased her marijuana use and followed a gastroparesis diet. This worked for a few months however she is now having daily nausea and 1-2 episodes of vomiting per day. She describes asso ciated epigastric pain. She feels the symptoms may have started after her cholecystectomy in 2022. She may have bile acid reflux. She will undergo EGD for assessment of her upper GI tract. In the interim she will restart PPI and take Zofran as needed. Will repeat calprotectin and recommended a fiber supplement. - EGD - Restart PPI - Zofran as needed - Start fiber supplement - Repeat calprotectin - Follow-up after procedure Note: [employer] speech recognition daylight driller software was used to create portions of this document. Sound-alike and misspelled words, as well as other daylight driller errors may be contained in the documentation. (2) Nausea & vomiting: Status: Acute (3) Abdominal pain: Status: Acute Orders: Orders
--- NOTE | 2025-08-15 08:24 | PRE.ANES_ITS ---
ASA Classification* ASA Classification ASA Classification: 2 Assessment & Plan Anesthesia* Anesthesia Assessment Anesthesia Assessment: Discussed sedation and/or anesthesia options, risks, benefits, and alternatives with patient/parents/legal guardian/POA. Questions invited. The patient/parents/legal guardian/POA seems to understand and agrees to proceed with anesthesia plan. Reviewed the physical assessment, medical history, allergy history and patient home medications list prior to surgery/procedure/anesthetic and documented any changes. Performed airway and anesthesia risk assessments. Anesthesia Type Anesthesia Type: MAC Anesthesia Focused Assessment* Temperature: 98.2 F Pulse Rate: 69 Blood Pressure: 117/86 Respiratory Rate: 16 Pulse Ox: 100 Airway Assessment Mouth opens: >3 cm Mallampati Score: II Labs Anesthesia Preop lab: CBC WBC, (4.4-11.0) 16.1 K/mm3 H 09/30/24, 08: RBC, (4.2-5.4) 4.42 M/mm3 09/30/24, 08: Hgb, (12.0-15.0) 13.7 g/dL 09/30/24, 08: Hct, (37-47) 39.9 % 09/30/24, 08:29 Plt Count, (150-450) 440 K/mm3 09/30/24, 08:29 CHEMISTRY Potassium, (3.5-5.1) 3.7 mmol/L 09/30/24, 08:29 Sodium, (136-145) 138 mmol/L 09/30/24, 08:29 BUN, (7-18) 11 mg/dL 09/30/24, 08:29 Creatinine, (0.55-1.02) 0.87 mg/dL 09/30/24, 08: Glucose, (74-106) 117 mg/dL H 09/30/24, 08:29 COAG Urine Test Negative Negative Today, 07:50 Pre-Assessment Diagnosis/Proposed Procedure Planned Operative Procedure(s): EGD Anesthesia History Anesthesia History - steel box toe inserter: Anesthesia History - steel box toe inserter Hx Hospitalization No 08/12/25 13:45 Any Problems With Anesthesia No 08/12/25 13:45 Cholinesterase deficiency No 08/12/25 13:45 You/Your Family Experience No 08/12/25 13:45 fever (hyperthermia) with Relationship Recent Exposure to Contagious Disease Does patient have nerve No 08/12/25 13:45 stimulator Patient instructed to have device shut off --Does patient have Pacemaker No 08/15/25 07:56 or ICD? When Was Last Pacemaker Check QUESTION #4 FULL TEXT: You/Your Family Experience fever (hyperthermia) with Anesthesia Last Oral Intake Last Oral intake: Last Oral Intake NPO since 21:00 08/15/25 07:56 Meds taken in AM with sips of No 08/15/25 07:56 water? Meds patient instructed to take am of surgery PONV PONV - steel box toe inserter: PONV - steel box toe inserter Female Yes 08/12/25 13:45 HX of Motion Sickness No 08/12/25 13:45 HX of N/V After Surgery No 08/12/25 13:45 Non-Smoker No 08/12/25 13:45 Duration of Surgery greater No 08/12/25 13:45 than 60 minutes Number of Risk Factors 1 08/12/25 13:45 PONV Score Low Risk 08/12/25 13:45 Height & Weight Height & Weight: Anesthesia: Height & Weight Height 5 ft 3 in 08/15/25 07:56 Weight: 51.9 kg 08/15/25 07:56 Body Mass Index (BMI) 20.2 08/15/25 07:56 Respiratory Assessment Respiratory Assessment - steel box toe inserter: Respiratory Tract Infection Hx - steel box toe inserter Hx Respiratory Tract Infection No 08/12/25 13:45 STOP Sleep Apnea STOP Sleep Apnea - steel box toe inserter: STOP Sleep Apnea - steel box toe inserter Hx Hypertension No 08/12/25 13:45 Hx Sleep Apnea No 08/12/25 13:45 CPAP BIPAP Do you snore loudly (louder No 08/12/25 13:45 than talking or can be heard Do you often feel tired/ No 08/12/25 13:45 fatigued/ sleepy during daytime? Has anyone observed you stop No 08/12/25 13:45 breathing during sleep? STOP Results Negative 08/12/25 13:45 QUESTION #5 FULL TEXT : Do you snore loudly (louder than talking or can be heard through closed doors)? Tobacco Use History Tobacco Use History - steel box toe inserter: Tobacco Use History - steel box toe inserter Tobacco Use Smoking Status Current every day smoker 08/12/25 13:45 Hx Tobacco Use No 08/12/25 13:45 Years Smoking Packs Smoked per Day Smoking Cessation Date was within the last 15 years Hx Smoking Cessation Date Hx Smoking Cessation Counseling Hematologic Medial History Hematologic Hx - steel box toe inserter: Hematologic Medical Hx - edge inker uppers Hx of Blood Transfusion No 08/12/25 13:45 Hx of Transfusion in last 3 No 08/12/25 13:45 Months Date of Last Transfusion (if within last 3 months) Ever experience any problems No 08/12/25 13:45 with transfusion(s)? Specify any problems Hx of Preganancy in last 3 No 08/12/25 13:45 Months Nurse Filling Out Transfusion VLEHMAN 08/12/25 13:45 & Questions: Date: 08/12/25 08/12/25 13:45 Time: 13:50 08/12/25 13:45 Patient unable to answer at this time (ie. confused, unrespo /Reproduction History /Reproductive History - steel box toe inserter: /Reproductive Hx- steel box toe inserter Hx Now No 08/12/25 13:45 Gestational Age (in weeks): EDC: Hx Hx Para Hx Section SAB No 08/12/25 13:45 Does the father of the baby or his family experience fever w Father of the baby Malignant Hypertension history comment Active Medications Active Medications: Current Medications Generic Name Dose Route Start Last Admin Trade Name Freq PRN Reason Stop Dose Admin Lactated Ringer's 1,000 mls @ 15 mls/hr 08/15/25 08:00 08/15/25 08:06 IV 15 mls/hr .Q48H ARIELLE Administration PFSH Medical History Wears contact lenses Wears glasses Marijuana use Easy bruising Migraine headache Smoker History of prior with IUGR Anxiety Depression Home Medications ?Medication ?Instructions ?Recorded ?Last Taken ?Type alprazolam 0.25 mg tablet 0.25 mg PO TID PRN anxiety 1 Unknown History pantoprazole 40 mg tablet,delayed 40 mg PO QDAY #30 ta bs 07/17/25 Unknown Rx release bupropion HCl 150 mg 24 hr tablet, 300 mg PO DAILY Unknown History extended release Allergy/AdvReac Type Severity Reaction Status Date / Time No Known Allergies Allergy Verified 08/15/25 07:55 Surgical History S/P laparoscopic cholecystectomy Previous section Social History Smoking Status: Current every day smoker tobacco type: e-cigarettes alcohol intake: never Review of Systems (Anesthesia) ROS Narrative System reviewed and no additional complaints, except as documented.
--- NOTE | 2025-08-15 08:45 | EGD_PTH ---
PATIENT: MERCED TORREZ LOC: EN U#:[id number] AGE/SX: 24/F ROOM: RE08/15/[address]: Dr. Sen Slater DO : 2000 BED: DIS: 08/15/2025 SPEC #: [id number] RECD: 08/15/25 10:34 STATUS: QIAN RETraci #: [id number] UZIEL: 08/15/25 08:[address]: Sen Slater DEPT: SURGICAL PATHOLOGY RECD BY: Nain Washington ENTERED: 08/15/25 11:55 SP TYPE: EGD BIOPSY MONICA DR: Janine Castillo PA-C Tissues: A - Duodenum, NOS B - Gastric mucous membrane C - Gastric mucous membrane D - Esophagus, NOS Procedures: Immunohistochemical Stains Surgery Specimen Level IV HEADER OPERATION: EGD, biopsy PRE-OP DIAGNOSIS: Nausea / vomiting, abdominal pain, diarrhea TISSUE SUBMITTED: A- Duodenum biopsy, B- Antrum biopsy, C- Gastric body biopsy, D- Random esophagus biopsy MICROSCOPIC DIAGNOSIS A. Small intestine, duodenum: * Benign duodenal mucosa without active inflammation or architectural distortion B. Stomach, antrum: * Oxynto-pyloric mucosa with slight chronic inflammation * An immunohistochemical stain for Helicobacter pylori is negative C. Stomach, body: * Oxyntic mucosa with slight chronic inflammation * No Helicobacter pylori-like organisms are identified in these H & E stained sections D. Esophagus, random: * Benign squamous epithelium without active inflammation MICROSCOPIC DESCRIPTION Slides are reviewed. All matched controls reacted appropriately. These tests were developed and their performance characteristics determined by [facility]. They may not have been cleared or approved by the U.S. Food and Drug Administration. The FDA has determined that such clearance or approval is not necessary. The above immunohistochemical markers are reviewed by the Pathologist. GROSS DESCRIPTION A. Received in fixative is one container labeled with the patient's name and designated Duodenum biopsy. The specimen consists of two irregular fragments of causey tissue that measure 0.3 and 0.6 cm. The specimen is totally submitted in one cassette. B. Received in fixative is one container labeled with the patient's name and designated Antrum biopsy. The specimen consists of two irregular fragments of causey tissue that measure 0.3 and 0.4 cm. The specimen is totally submitted in one cassette. C. Received in fixative is one container labeled with the patient's name and designated Gastric body biopsy. The specimen consists of two irregular fragments of causey tissue that measure 0.3 and 0.5 cm. The specimen is totally submitted in one cassette. D. Received in fixative is one container labeled with the patient's name and designated Random esophagus biopsy. The specimen consists of two irregular fragments of causey tissue, each measuring 0.3 cm. The specimen is totally submitted in one cassette. [place] 08/15/2025 CPT:28346u3,21356
--- NOTE | 2025-08-15 09:33 | PCM.POST.ANE ---
Anesthesia: Postop Eval I Current Vital Signs Temperature: 97.2 F Pulse Rate: 88 Blood Pressure: 111/72 Respiratory Rate: 18 Pulse Ox: 99 Oxygen Delivery Method: Room Air Assessment Airway patent: Yes Spontaneous unlabored respirations: Yes Mental status: Asleep nausea: No Vomiting: No Anesthesia Complication: No Fluid Hydration Crystalloid volume administer (ml): 500 Total IV fluid infused: 500 Progress Note Anesthesia document: Postop Eval 1 completed: Yes
--- NOTE | 2025-08-15 09:36 | OP.PROVAT_ITS ---
08/15/2025 [facility] Re : Upper GI endoscopy procedure for Mary Castillo This procedure was performed on July. My impressions and recommendations are as follows: Impressions : - Normal esophagus. - Chronic gastritis. Biopsied. - Erythematous duodenopathy. - Biopsies were taken with a cold forceps for evaluation of eosinophilic esophagitis. Recommendations : - Discharge patient to home. - Resume previous diet. - Continue present medications. - Await pathology results. My findings are described in the full procedure note, which is enclosed. If I can be of further assistance, please feel free to contact me at . Sincerely, Sen Slater, 08/15/2025 9:35:43 AM This report has been signed electronically.
--- NOTE | 2025-08-15 09:36 | OP.EGD_ITS ---
Patient Name: Mary Roa Procedure Date: 08/15/2025 9:13 AM Date of : 2000 Age: 24 Procedure: Upper GI endoscopy Indications: Epigastric abdominal pain Providers: DO eBlén Pineda MD: Janine Castillo Medicines: Monitored Anesthesia Care Patient Profile: This is a 24 year old female. Refer to note in patient chart for documentation of history and physical. Patient has symptoms of acute right upper quadrant abdominal pain, acute left upper quadrant abdominal pain, acute epigastric abdominal pain, chronic global abdominal pain, chronic dyspepsia and chronic nausea. Complications: No immediate complications. Procedure: Pre-Anesthesia Assessment: - Prior to the procedure, a History and Physical was performed, and patient medications and allergies were reviewed. The patient is competent. The risks and benefits of the procedure and the sedation options and risks were discussed with the patient. All questions were answered and informed consent was obtained. Patient identification and proposed procedure were verified by the physician in the pre-procedure area. Mental Status Examination: alert and oriented. Airway Examination: normal oropharyngeal airway and neck mobility. Respiratory Examination: clear to auscultation. CV Examination: normal. ASA Grade Assessment: II - A patient with mild systemic disease. After reviewing the risks and benefits, the patient was deemed in satisfactory condition to undergo the procedure. The anesthesia plan was to use monitored anesthesia care (MAC). Immediately prior to administration of medications, the patient was re-assessed for adequacy to receive sedatives. The heart rate, respiratory rate, oxygen saturations, blood pressure, adequacy of pulmonary ventilation, and response to care were monitored throughout the procedure. The physical status of the patient was re-assessed after the procedure. After obtaining informed consent, the endoscope was passed under direct vision. Throughout the procedure, the patient's blood pressure, pulse, and oxygen saturations were monitored continuously. The gastroscope was introduced through the mouth, and advanced to the fourth part of the duodenum. Small bowel enteroscopy was deemed necessary. The upper GI endoscopy was accomplished without difficulty. The patient tolerated the procedure well. Scope In: 9:16:35 AM Scope Out: 9:22:44 AM Total Procedure Duration Time 0 hours 6 minutes 9 seconds Findings: The examined esophagus was normal. Biopsies were obtained from the proximal and distal esophagus with cold forceps for histology of suspected eosinophilic esophagitis. Segmental mild inflammation characterized by erythema was found in the gastric body. Biopsies were taken with a cold forceps for histology. Biopsies were taken with a cold forceps for Helicobacter pylori testing. Verification of patient identification for the specimen was done. Estimated blood loss was minimal. Patchy mildly erythematous mucosa without active bleeding and with no stigmata of bleeding was found in the entire duodenum. Impression: - Normal esophagus. - Chronic gastritis. Biopsied. - Erythematous duodenopathy. - Biopsies were taken with a cold forceps for evaluation of eosinophilic esophagitis. Recommendation: - Discharge patient to home. - Resume previous diet. - Continue present medications. - Await pathology results. Procedure Code(s): --- Professional --- 73817, Small intestinal endoscopy, enteroscopy beyond second portion of duodenum, not including ileum; with biopsy, single or multiple CPT copyright 2021 [employer]. All rights reserved. The codes documented in this report are preliminary and upon combine driver review may be revised to meet current compliance requirements. Sen Slater DO 08/15/2025 9:35:43 AM This report has been signed electronically. Number of Addenda: 0 Note Initiated On: 08/15/2025 9:13 AM
--- NOTE | 2025-08-15 10:48 | PCM.POSTANE2 ---
Anesthesia Postop Eval I Sum Postop Eval Completion status Anesthesia document: Postop Eval 1 completed: Yes Anesthesia Postop Eval I Summary Anesthesia Postop Eval I Summary: Anesthesia Postop Eval I: Assessment Summary Airway patent Yes 08/15/25 09:34 [email or web address] Spontaneous unlabored Yes 08/15/25 09:34 [email or web address] respirations Mental status Asleep 08/15/25 09:34 [email or web address] nausea No 08/15/25 09:34 [email or web address] Vomiting No 08/15/25 09:34 [email or web address] Anesthesia Postop Eval I: Fluid Summary Crystalloid volume administer 500 08/15/25 09:34 [email or web address] (ml) Colloids volume administered ( ml) Blood Product volume administered (ml) Total IV fluid infused 500 08/15/25 09:34 [email or web address] Anesthesia Postop Eval I: Summary Notes Anesthesia Complication No 08/15/25 09:34 [email or web address] Anesthesia Complication Comment: Post-operative progress note Anesthesia: Postop Eval II Evaluation Mental status: Awake Pain Level: 0 nausea: No Vomiting: No
== END 2025-08-15 10:17 | disposition home or self-care (01) ==
LOC: EN 07:38 → AC 07:41
PROVIDERS: Anesthesiology; PCP Family Medicine; Referring Provider Family Medicine; Visit Provider Internal Medicine Gastroenterology
PROC: 0DJ08ZZ Inspection of Upper Intestinal Tract, Via Natural or Artificial Opening Endoscopic (ICD-10-PCS; CPT 43235; principal; 2025-08-15 08:40)
DX: K29.50 Unspecified chronic gastritis without bleeding (principal); Z90.49 Acquired absence of other specified parts of digestive tract; F17.290 Nicotine dependence, other tobacco product, uncomplicated
CPT/HCPCS: 44361; 81025; 88305; 88342; J2405